=== PATIENT | female | born 1950 | race Caucasian/White ===

== ENCOUNTER 2020-02-23 00:23 | Outpatient (CLI) | payer OTHER, SELFPAY ==
[2020-02-23 17:33] LABS: SARS-CoV-2 RNA PCR Negative
== END 2020-02-23 00:24 | disposition home or self-care (01) ==
LOC: ANHCOVIDDT 00:23
PROVIDERS: PCP Emergency Medicine; Visit Provider Internal Medicine Gastroenterology
DX: Z01.818 Encounter for other preprocedural examination (principal); Z11.59 Encounter for screening for other viral diseases
CPT/HCPCS: 87635; C9803; U0003

== ENCOUNTER 2020-02-25 00:18 | Day surgery (SDC) | payer OTHER, SELFPAY ==
[2020-02-22 14:06] VITALS: BMI 34.4
[2020-02-25 06:25] VITALS: BP 152/77; PULSE 77; RESP 20; TEMP 36.4; O2SAT 98
[2020-02-25] MEDS: LACTATED RINGERS 1,000 ML 150 ML IV CONT (06:40)
[2020-02-25 06:47] LABS: Glucose Point of Care 137 (65-105)
--- NOTE | 2020-02-25 07:08 | WPDANESEPPF ---
Anes - Initial Pre Proc Eval Procedure: Operation Date: 02/25/20 07:30 Proposed Procedures p Esophagogastroduodenoscopy - Bong Schneider MD Date/Time: 02/25/20 07:08 Surgeon: Bong Schneider MD Pre Op Diagnosis: gastric ulcer Patient Data Age: 69 Gender: F Height: 5 ft 10 in Weight: 109 kg Last Vital Signs Temp 36.4 C L 02/25/20 06:25 Pulse 77 02/25/20 06:25 Resp 20 02/25/20 06:25 BP 152/77 H 02/25/20 06:25 Pulse Ox 98 02/25/20 06:25 Allergies Allergy/AdvReac Type Severity Reaction Status Date / Time oxycodone Allergy Intermediate Nausea and Verified 02/25/20 06:23 Vomiting codeine Allergy Unknown Nausea and Verified 02/25/20 06:23 Vomiting metformin Allergy Unknown Nausea Verified 02/25/20 06:23 Home Medications Medication Instructions Recorded Confirmed Type acetaminophen [Tylenol Extra 1,000 mg PO BID PRN 07/20/19 02/22/20 History Strength] aspirin [Aspir-81] 81 mg PO DAILY 07/20/19 02/22/20 History cholecalciferol (vitamin D3) 1,000 unit PO DAILY 07/20/19 02/22/20 History [Vitamin D3] cyanocobalamin (vitamin B-12) 1,000 mcg PO DAILY 07/20/19 02/22/20 History [Vitamin B-12] furosemide 40 mg PO DAILY 07/20/19 02/22/20 History magnesium oxide 400 mg PO DAILY 07/20/19 02/22/20 History docusate sodium 100 mg capsule See Rx Instructions .ROUTE .COMPLEX 08/23/19 02/22/20 History pantoprazole 40 mg tablet,delayed 40 mg PO BID tablet 08/23/19 02/22/20 History release pioglitazone 15 mg tablet 7.5 mg PO DAILY 08/23/19 02/22/20 History glimepiride 2 mg tablet 2 mg PO DAILY #90 tablet 09/30/19 02/22/20 Rx lisinopril 40 mg tablet 40 mg PO DAILY #90 tablet 12/31/19 02/22/20 Rx fluticasone propionate 50 See Rx Instructions .ROUTE 02/23/20 02/25/20 Rx mcg/actuation nasal .COMPLEX #15.8 ml spray,suspension Laboratory Tests 02/25/20 06:45 POC Capillary Glucose 137 mg/dl H mg/dl (65-105) Patient hx anesthesia problems: none Family hx anesthesia problems: none PMFSH Past Medical History Medical History Arthritis Asthma Laughlin's palsy Diabetes Morbid obesity Family History Family History Mother Diabetes mellitus, Onset Age: 75 Family history of cardiovascular disease, Onset Age: 75 Family history of renal failure, Onset Age: 75 Family history of arthritis Family history of kidney disease Family history of diabetes mellitus in first degree relative Family history of heart disease in male family member before age 55 Hypertension Father Family history of malignant neoplasm, Onset Age: 62 Family history of arthritis Family history of lung cancer Grandparent Diabetes mellitus Other Family history of malignant neoplasm of brain Social History Social History Smoking status: Former smoker Smoking end date: 09/15/72 Alcohol intake: never Anes - Eval Final PreProcedure Day of Procedure 02/25/20 07:08 Patient weight: obese Heart: regular rate and rhythm Lungs: clear to auscultation Airway: Mallampati scale class II Neurological: alert and oriented Last oral intake: >/= 8 hours ASA classification: III Emergent: no Anesthetic plan: proceed Anesthesia type and monitoring: general GIVS and standard monitoring Informed Consent: The patient's anesthetic plan and its attendant risks and benefits were discussed with the patient/family/POA. Questions were solicited and answers provided to the satisfaction of the patient/family/POA.
--- NOTE | 2020-02-25 07:37 | WPDGICN ---
Assessment and Plan Assessment and plan (1) Gastric ulcer: Code(s): K25.9 - Gastric ulcer, unspecified as acute or chronic, without hemorrhage or perforation Status: Acute Assessment and Plan: Gastric ulcers identified in May 2019. Patient has been maintained on Protonix 40 mg p.o. b.i.d. since that time. Currently denies any ongoing abdominal pain. Plan is for follow-up EGD. Continue PPI eyes. Avoid nonsteroidal anti-inflammatory agents. (2) Morbid obesity: Code(s): E66.01 - Morbid (severe) obesity due to excess calories Status: Acute Assessment and Plan: Patient has a history of gastric stapling. This is where previous ulcers were identified at the surgical site. (3) Diabetes mellitus: Code(s): E11.9 - Type 2 diabetes mellitus without complications Status: Acute (4) HLD (hyperlipidemia): Code(s): E78.5 - Hyperlipidemia, unspecified Status: Acute GI Consult Note Consult date/time: 02/25/20 07:37 HPI: Ninfa Turner is a 69 year old female Seen in evaluation at the request of Dr. Ventura. Patient has a history of gastric ulcers. Initially identified in May of 2019. She was placed on Protonix 40 mg p.o. b.i.d. in presents today for follow-up examination. She denies any abdominal pain. She denies any obvious bleeding. In May she had noticed difficulty swallowing this is no longer an issue. She has a distant history of stomach stapling in 1981. Family history is noncontributory. Patient denies using nonsteroidal anti-inflammatory agents. Past medical history is significant for diabetes and hypertension. Review of Systems Review of Systems: All systems reviewed & are unremarkable except as noted in HPI and below [facility] Past Medical History Medical History Arthritis Asthma Laughlin's palsy Diabetes Morbid obesity Family History Family History Mother Diabetes mellitus, Onset Age: 75 Family history of cardiovascular disease, Onset Age: 75 Family history of renal failure, Onset Age: 75 Family history of arthritis Family history of kidney disease Family history of diabetes mellitus in first degree relative Family history of heart disease in male family member before age 55 Hypertension Father Family history of malignant neoplasm, Onset Age: 62 Family history of arthritis Family history of lung cancer Grandparent Diabetes mellitus Other Family history of malignant neoplasm of brain Social History Social History Smoking status: Former smoker Smoking end date: 09/15/72 Alcohol intake: never Meds Home Medications and Allergies Home Medications Medication Instructions Recorded Confirmed Type acetaminophen [Tylenol Extra 1,000 mg PO BID PRN 07/20/19 02/22/20 History Strength] aspirin [Aspir-81] 81 mg PO DAILY 07/20/19 02/22/20 History cholecalciferol (vitamin D3) 1,000 unit PO DAILY 07/20/19 02/22/20 History [Vitamin D3] cyanocobalamin (vitamin B-12) 1,000 mcg PO DAILY 07/20/19 02/22/20 History [Vitamin B-12] furosemide 40 mg PO DAILY 07/20/19 02/22/20 History magnesium oxide 400 mg PO DAILY 07/20/19 02/22/20 History docusate sodium 100 mg capsule See Rx Instructions .ROUTE .COMPLEX 08/23/19 02/22/20 History pantoprazole 40 mg tablet,delayed 40 mg PO BID tablet 08/23/19 02/22/20 History release pioglitazone 15 mg tablet 7.5 mg PO DAILY 08/23/19 02/22/20 History glimepiride 2 mg tablet 2 mg PO DAILY #90 tablet 09/30/19 02/22/20 Rx lisinopril 40 mg tablet 40 mg PO DAILY #90 tablet 12/31/19 02/22/20 Rx fluticasone propionate 50 See Rx Instructions .ROUTE 02/23/20 02/25/20 Rx mcg/actuation nasal .COMPLEX #15.8 ml spray,suspension Allergies Allergy/AdvReac Type Severity Reaction Status Date / Time oxycodone Allergy Intermed
[2020-02-25] MEDS: BENZOCAINE (*SP) 60 ML SPRAY CAN (HURRICAINE) 1 SPRAY MUCOUS MEM (07:42)
[2020-02-25 07:53] VITALS: BP 129/57; PULSE 73; RESP 26; O2SAT 96
[2020-02-25 08:03] VITALS: BP 121/58; PULSE 75; RESP 24; O2SAT 94
[2020-02-25 08:13] VITALS: BP 121/55; PULSE 72; RESP 22; O2SAT 99
[2020-02-25 08:22] LABS: Hematocrit 35.6 % (37.0-47.0); Hemoglobin 11.7 g/dL (12.0-15.0); Mean Corpuscular HGB Conc 32.9 g/dl (32-36); Mean Corpuscular Hemoglobin 31.6 pg (26-34); Mean Corpuscular Volume 96.2 fl (80-100); Mean Platelet Volume 10.2 fl (7.4-10.4); Platelet Count Result 155 k/mm3 (150-375); Red Cell Distribution Width 13.8 % (11.5-14.5); White Blood Count 5.2 K/mm3 (4.5-10.0)
--- NOTE | 2020-02-25 08:35 | SUR.PHASEII ---
4334 CBC RESULTS GIVEN TO DR. CALDWELL. PRESTON RN
== END 2020-02-25 08:49 | disposition home or self-care (01) ==
PROVIDERS: PCP Emergency Medicine; Visit Provider Internal Medicine Gastroenterology
PROC: 0DJ08ZZ Inspection of Upper Intestinal Tract, Via Natural or Artificial Opening Endoscopic (ICD-10-PCS; CPT 43235; principal; 2020-02-25 07:30)
DX: K25.0 Acute gastric ulcer with hemorrhage (principal); K29.50 Unspecified chronic gastritis without bleeding; E11.9 Type 2 diabetes mellitus without complications; E78.5 Hyperlipidemia, unspecified; E66.01 Morbid (severe) obesity due to excess calories; Z68.34 Body mass index [BMI] 34.0-34.9, adult; Z87.891 Personal history of nicotine dependence; Z79.82 Long term (current) use of aspirin
CPT/HCPCS: 43239; 36415; 85027; 88305; 88342; J2704; J7120

== ENCOUNTER 2020-05-24 00:54 | Outpatient (CLI) | payer OTHER, SELFPAY ==
[2020-05-24 19:20] LABS: SARS-CoV-2 RNA PCR Negative
== END 2020-05-24 00:55 | disposition home or self-care (01) ==
LOC: ANHCOVIDDT 00:58
PROVIDERS: PCP Emergency Medicine; Visit Provider Internal Medicine Gastroenterology
DX: Z01.812 Encounter for preprocedural laboratory examination (principal); Z20.828 Contact with and (suspected) exposure to other viral communicable diseases
CPT/HCPCS: 87635; C9803; U0003

== ENCOUNTER 2020-05-26 00:54 | Day surgery (SDC) | payer OTHER, SELFPAY ==
[2020-05-17 10:21] VITALS: BMI 42.7
--- NOTE | 2020-05-25 15:19 | WPDANESEPP ---
Anes - Eval Pre Procedure Procedure: Operation Date: 05/26/20 07:30 Proposed Procedures p Esophagogastroduodenoscopy - Bong Schneider MD Date/Time: 05/25/20 15:19 Pre Op Diagnosis: gastric ulcer Patient Data Age: 70 Gender: F Height: 1.57 m Weight: 106 kg Allergies Allergy/AdvReac Type Severity Reaction Status Date / Time oxycodone Allergy Intermediate Nausea and Verified 02/25/20 06:23 Vomiting codeine Allergy Unknown Nausea and Verified 02/25/20 06:23 Vomiting metformin Allergy Unknown Nausea Verified 02/25/20 06:23 Home Medications Medication Instructions Recorded Confirmed Type acetaminophen [Tylenol Extra 1,000 mg PO BID PRN 07/20/19 05/17/20 History Strength] cholecalciferol (vitamin D3) 1,000 unit PO DAILY 07/20/19 05/17/20 History [Vitamin D3] cyanocobalamin (vitamin B-12) 1,000 mcg PO DAILY 07/20/19 05/17/20 History [Vitamin B-12] furosemide 40 mg PO DAILY 07/20/19 05/17/20 History pantoprazole 40 mg tablet,delayed 40 mg PO BID tablet 08/23/19 05/17/20 History release glimepiride 2 mg tablet 2 mg PO DAILY #90 tablet 09/30/19 05/17/20 Rx lisinopril 40 mg tablet 40 mg PO DAILY #90 tablet 12/31/19 05/17/20 Rx pioglitazone 15 mg tablet 7.5 mg PO DAILY #90 tablet 03/27/20 05/17/20 Rx docusate sodium 100 mg capsule See Rx Instructions .ROUTE .COMPLEX 04/04/20 05/17/20 History fluticasone propionate 50 See Rx Instructions .ROUTE 05/03/20 05/17/20 Rx mcg/actuation nasal .COMPLEX #16 ml spray,suspension sucralfate 1 g PO QID 05/17/20 05/17/20 History Patient hx anesthesia problems: none Family hx anesthesia problems: none PMFSH Social History Social History Smoking status: Former smoker Smoking end date: 09/15/72 Alcohol intake: never Spiritual care concerns: No Exam Day of Procedure 05/25/20 15:19
[2020-05-26 06:38] VITALS: BP 147/69; PULSE 72; RESP 16; TEMP 36.6; O2SAT 97; BMI 43.9
[2020-05-26] MEDS: LACTATED RINGERS 1,000 ML 150 ML IV CONT (06:58)
--- NOTE | 2020-05-26 07:04 | WPDANESEPP ---
Anes - Eval Pre Procedure Procedure: Operation Date: 05/26/20 07:30 Proposed Procedures p Esophagogastroduodenoscopy - Bong Schneider MD Date/Time: 05/26/20 07:04 Pre Op Diagnosis: gastric ulcer Patient Data Age: 70 Gender: F Height: 1.57 m Weight: 109.1 kg Last Vital Signs Temp 36.6 C 05/26/20 06:38 Pulse 72 05/26/20 06:38 Resp 16 05/26/20 06:38 BP 147/69 H 05/26/20 06:38 Pulse Ox 97 05/26/20 06:38 Allergies Allergy/AdvReac Type Severity Reaction Status Date / Time oxycodone Allergy Intermediate Nausea and Verified 05/26/20 06:32 Vomiting codeine Allergy Unknown Nausea and Verified 05/26/20 06:32 Vomiting metformin Allergy Unknown Nausea Verified 05/26/20 06:32 Home Medications Medication Instructions Recorded Confirmed Type acetaminophen [Tylenol Extra 1,000 mg PO BID PRN 07/20/19 05/17/20 History Strength] cholecalciferol (vitamin D3) 1,000 unit PO DAILY 07/20/19 05/17/20 History [Vitamin D3] cyanocobalamin (vitamin B-12) 1,000 mcg PO DAILY 07/20/19 05/17/20 History [Vitamin B-12] furosemide 40 mg PO DAILY 07/20/19 05/17/20 History pantoprazole 40 mg tablet,delayed 40 mg PO BID tablet 08/23/19 05/17/20 History release glimepiride 2 mg tablet 2 mg PO DAILY #90 tablet 09/30/19 05/17/20 Rx lisinopril 40 mg tablet 40 mg PO DAILY #90 tablet 12/31/19 05/17/20 Rx pioglitazone 15 mg tablet 7.5 mg PO DAILY #90 tablet 03/27/20 05/17/20 Rx docusate sodium 100 mg capsule See Rx Instructions .ROUTE .COMPLEX 04/04/20 05/17/20 History fluticasone propionate 50 See Rx Instructions .ROUTE 05/03/20 05/17/20 Rx mcg/actuation nasal .COMPLEX #16 ml spray,suspension sucralfate 1 g PO QID 05/17/20 05/17/20 History Patient hx anesthesia problems: none Family hx anesthesia problems: none PMFSH Social History Social History Smoking status: Former smoker Smoking end date: 09/15/72 Alcohol intake: never Living arrangements: with family Spiritual care concerns: No Exam Day of Procedure 05/26/20 07:04
--- NOTE | 2020-05-26 07:10 | WPDANESEPPF ---
Anes - Initial Pre Proc Eval Procedure: Operation Date: 05/26/20 07:30 Proposed Procedures p Esophagogastroduodenoscopy - Bong Schneider MD Date/Time: 05/26/20 07:10 Surgeon: Bong Schneider MD Pre Op Diagnosis: gastric ulcer Patient Data Age: 70 Gender: F Height: 1.57 m Weight: 109.1 kg Last Vital Signs Temp 36.6 C 05/26/20 06:38 Pulse 72 05/26/20 06:38 Resp 16 05/26/20 06:38 BP 147/69 H 05/26/20 06:38 Pulse Ox 97 05/26/20 06:38 Allergies Allergy/AdvReac Type Severity Reaction Status Date / Time oxycodone Allergy Intermediate Nausea and Verified 05/26/20 06:32 Vomiting codeine Allergy Unknown Nausea and Verified 05/26/20 06:32 Vomiting metformin Allergy Unknown Nausea Verified 05/26/20 06:32 Home Medications Medication Instructions Recorded Confirmed Type acetaminophen [Tylenol Extra 1,000 mg PO BID PRN 07/20/19 05/17/20 History Strength] cholecalciferol (vitamin D3) 1,000 unit PO DAILY 07/20/19 05/17/20 History [Vitamin D3] cyanocobalamin (vitamin B-12) 1,000 mcg PO DAILY 07/20/19 05/17/20 History [Vitamin B-12] furosemide 40 mg PO DAILY 07/20/19 05/17/20 History pantoprazole 40 mg tablet,delayed 40 mg PO BID tablet 08/23/19 05/17/20 History release glimepiride 2 mg tablet 2 mg PO DAILY #90 tablet 09/30/19 05/17/20 Rx lisinopril 40 mg tablet 40 mg PO DAILY #90 tablet 12/31/19 05/17/20 Rx pioglitazone 15 mg tablet 7.5 mg PO DAILY #90 tablet 03/27/20 05/17/20 Rx docusate sodium 100 mg capsule See Rx Instructions .ROUTE .COMPLEX 04/04/20 05/17/20 History fluticasone propionate 50 See Rx Instructions .ROUTE 05/03/20 05/17/20 Rx mcg/actuation nasal .COMPLEX #16 ml spray,suspension sucralfate 1 g PO QID 05/17/20 05/17/20 History Laboratory Tests 05/26/20 07:07 POC Capillary Glucose Pending Patient hx anesthesia problems: none Family hx anesthesia problems: none PMFSH Past Medical History Medical History Arthritis Asthma Laughlin's palsy Diabetes Morbid obesity Family History Family History Mother Diabetes mellitus, Onset Age: 75 Family history of cardiovascular disease, Onset Age: 75 Family history of renal failure, Onset Age: 75 Family history of arthritis Family history of kidney disease Family history of diabetes mellitus in first degree relative Family history of heart disease in male family member before age 55 Hypertension Father Family history of malignant neoplasm, Onset Age: 62 Family history of arthritis Family history of lung cancer Grandparent Diabetes mellitus Other Family history of malignant neoplasm of brain Social History Social History Smoking status: Former smoker Smoking end date: 09/15/72 Alcohol intake: never Living arrangements: with family Spiritual care concerns: No Anes - Eval Final PreProcedure Day of Procedure 05/26/20 07:10 Patient weight: morbidly obese Heart: regular rate and rhythm Lungs: clear to auscultation and normal air movement Airway: Mallampati scale class II Neurological: alert and oriented Last oral intake: >/= 8 hours ASA classification: III Emergent: no Anesthetic plan: proceed Anesthesia type and monitoring: general GIVS Informed Consent: The patient's anesthetic plan and its attendant risks and benefits were discussed with the patient/family/POA. Questions were solicited and answers provided to the satisfaction of the patient/family/POA.
[2020-05-26 07:11] LABS: Glucose Point of Care 133 (65-105)
[2020-05-26] MEDS: BENZOCAINE (*SP) 60 ML SPRAY CAN (HURRICAINE) 1 SPRAY MUCOUS MEM (07:41)
--- NOTE | 2020-05-26 07:46 | WPDGICN ---
Assessment and Plan Assessment and plan (1) Gastric ulcer: Code(s): K25.9 - Gastric ulcer, unspecified as acute or chronic, without hemorrhage or perforation Status: Acute Assessment and Plan: Because of prior gastric ulcer follow-up EGD is advised at this time. Currently patient on pantoprazole 40 mg p.o. b.i.d. with Carafate daily. Further recommendations will be given after endoscopy. (2) Morbid obesity: Code(s): E66.01 - Morbid (severe) obesity due to excess calories Status: Acute (3) History of gastric bypass: Code(s): Z98.84 - Bariatric surgery status Status: Acute (4) Diabetes mellitus: Qualifiers: Diabetes mellitus type: type 2 Diabetes mellitus mcfp insulin use: without mcfp use Diabetes mellitus complication status: without complication Qualified Code(s): E11.9 - Type 2 diabetes mellitus without complications Code(s): E11.9 - Type 2 diabetes mellitus without complications Status: Acute GI Consult Note Consult date/time: 05/26/20 07:46 HPI: Ninfa Turner is a 70 year old female Presents for follow-up EGD. Patient has persistent abdominal pain predominantly epigastric and right upper quadrant. She is known to have a gastric ulcer since May of 2019. EGD 2 months ago revealed persistent ulceration. Since that time she has been maintained on pantoprazole. She avoids nonsteroidal anti-inflammatory agents. Carafate was added to her regime. She feels somewhat better but continues to have some vague right upper quadrant abdominal pain. Past medical history is significant for a gastric bypass. She has been treated for diabetes mellitus. Review of Systems Review of Systems: All systems reviewed & are unremarkable except as noted in HPI and below PMFSH Past Medical History Medical History Arthritis Asthma Laughlin's palsy Diabetes Morbid obesity Family History Family History Mother Diabetes mellitus, Onset Age: 75 Family history of cardiovascular disease, Onset Age: 75 Family history of renal failure, Onset Age: 75 Family history of arthritis Family history of kidney disease Family history of diabetes mellitus in first degree relative Family history of heart disease in male family member before age 55 Hypertension Father Family history of malignant neoplasm, Onset Age: 62 Family history of arthritis Family history of lung cancer Grandparent Diabetes mellitus Other Family history of malignant neoplasm of brain Social History Social History Smoking status: Former smoker Smoking end date: 09/15/72 Alcohol intake: never Living arrangements: with family Spiritual care concerns: No Meds Home Medications and Allergies Home Medications Medication Instructions Recorded Confirmed Type acetaminophen [Tylenol Extra 1,000 mg PO BID PRN 07/20/19 05/17/20 History Strength] cholecalciferol (vitamin D3) 1,000 unit PO DAILY 07/20/19 05/17/20 History [Vitamin D3] cyanocobalamin (vitamin B-12) 1,000 mcg PO DAILY 07/20/19 05/17/20 History [Vitamin B-12] furosemide 40 mg PO DAILY 07/20/19 05/17/20 History pantoprazole 40 mg tablet,delayed 40 mg PO BID tablet 08/23/19 05/17/20 History release glimepiride 2 mg tablet 2 mg PO DAILY #90 tablet 09/30/19 05/17/20 Rx lisinopril 40 mg tablet 40 mg PO DAILY #90 tablet 12/31/19 05/17/20 Rx pioglitazone 15 mg tablet 7.5 mg PO DAILY #90 tablet 03/27/20 05/17/20 Rx docusate sodium 100 mg capsule See Rx Instructions .ROUTE .COMPLEX 04/04/20 05/17/20 History fluticasone propionate 50 See Rx Instructions .ROUTE 05/03/20 05/17/20 Rx mcg/actuation nasal .COMPLEX #16 ml spray,suspension sucralfate 1 g PO QID 05/17/20 05/17/20 History Allergies Allergy/AdvReac Type Severity Reaction Stat
[2020-05-26 07:48] VITALS: BP 128/57; PULSE 67; RESP 19; O2SAT 95
[2020-05-26 07:58] VITALS: BP 127/53; PULSE 62; RESP 20; O2SAT 93
[2020-05-26 08:08] VITALS: BP 131/55; PULSE 60; RESP 21; O2SAT 97
== END 2020-05-26 08:32 | disposition home or self-care (01) ==
PROVIDERS: PCP Emergency Medicine; Visit Provider Internal Medicine Gastroenterology
PROC: 0DJ08ZZ Inspection of Upper Intestinal Tract, Via Natural or Artificial Opening Endoscopic (ICD-10-PCS; CPT 43235; principal; 2020-05-26 07:30)
DX: R10.13 Epigastric pain (principal); K31.84 Gastroparesis; Z98.84 Bariatric surgery status; Z87.11 Personal history of peptic ulcer disease; E11.9 Type 2 diabetes mellitus without complications; E66.01 Morbid (severe) obesity due to excess calories; Z68.41 Body mass index [BMI] 40.0-44.9, adult; Z87.891 Personal history of nicotine dependence
CPT/HCPCS: 43235; J2704; J7120

== ENCOUNTER 2020-08-22 12:06 | Outpatient (CLI) | payer OTHER, SELFPAY ==
--- NOTE | ~2020-08-22 | XR_ITS ---
EXAMINATION: XR shoulder LT min 2V DATE: 08/22/2020 12:37 INDICATION: Left shoulder pain. TECHNIQUE: 4 views of left shoulder were obtained. COMPARISON: None. FINDINGS: Bone alignment is normal. No fracture. There is mild osteoarthritis of glenohumeral joint a nd moderate osteoarthritis of acromioclavicular joint. IMPRESSION: 1. Polyarticular osteoarthritis. Reviewed, dictated and finalized at location B. HOUSE ORDER PULLER
== END 2020-08-22 12:07 | disposition home or self-care (01) ==
PROVIDERS: PCP Emergency Medicine; Visit Provider Emergency Medicine
DX: M19.012 Primary osteoarthritis, left shoulder (principal)
CPT/HCPCS: 73030

== ENCOUNTER 2020-11-02 15:34 | Outpatient (CLI) | payer OTHER, SELFPAY ==
--- NOTE | ~2020-11-02 | MM_ITS ---
EXAMINATION: MM screening radhika BI w brittni HISTORY: Screening TECHNIQUE: Craniocaudal and mediolateral oblique 3-D tomosynthesis images were obtained and synthetic 2-D images were generated. CAD analysis was submitted and interpreted. COMPARISON: Comparison to multiple prior studies sequentially, with oldest reviewed study dated 04/12. BREAST PARENCHYMAL COMPOSITION: There are scattered areas of fibroglandular density. FINDINGS: There is no evidence of suspicious mass, calcification, or architectural distortion to sugg est malignancy in either breast. There has been no suspicious interval change. IMPRESSION: 1. No mammographic evidence of malignancy. 2. Recommend routine screening mammography in one year. BI-RADS Category 1: Negative Reviewed, dictated and finalized at location A. ROASTER
== END 2020-11-02 15:35 | disposition home or self-care (01) ==
PROVIDERS: PCP Emergency Medicine; Visit Provider Emergency Medicine
DX: Z12.31 Encounter for screening mammogram for malignant neoplasm of breast (principal)
CPT/HCPCS: 77063; 77067

== ENCOUNTER 2021-02-05 21:10 | Emergency (ER) | payer OTHER, SELFPAY ==
--- NOTE | ~2021-02-05 | XR_ITS ---
XR chest 1V portable 02/05/2021 22:54 Indication: Shortness of breath. Covid positive. Procedure: AP portable chest Comparison: 01/07/2019 Findings: Patchy bilateral infiltrates, compatible with pneumonia. No significant pleural effusion. H eart size normal. No pneumothorax. No acute osseous abnormality. Impression: 1: Patchy bilateral infiltrates, compatible with pneumonia. Reviewed, dictated and finalized at location A. Impression: 1: Patchy bilateral infiltrates, compatible with pneumonia.
[2021-02-05 21:14] VITALS: BP 145/60; PULSE 84; RESP 14; TEMP 36.7; O2SAT 93
--- NOTE | 2021-02-05 21:17 | ECG_ITS ---
Measurements Intervals [place] Rate: 86 P: 90 AL: 195 QRS: 36 QRSD: 143 T: 4 QT: 350 QTc: 420 Interpretive Statements SINUS RHYTHM ATRIAL AND VENTRICULAR PREMATURE COMPLEXES ABNORMAL ECG RIGHT BUNDLE BRANCH BLOCK Electronically Signed On 02-06-2021 6:05:03 CDT by Abdullahi Fiore D.O.
[2021-02-05 21:35] LABS: Basophils Percent Auto 0.2 % (0.2-1.2); Hematocrit 39.1 % (37.0-47.0); Hemoglobin 12.9 g/dL (12.0-15.0); Immature Granulocyte Absolute 0.02 K/mm3 (0.00-0.031); Immature Granulocyte Percent A 0.5 % (0-0.5); Immature Platelet Fraction Pct 3.6 % (0.9-11.2); Lymphocytes Absolute Auto 0.98 K/mm3 (0.9-3.2); Mean Corpuscular Hemoglobin 30.9 pg (26-34); Mean Corpuscular Volume 93.5 fl (80-100); Mean Platelet Volume 10.3 fl (7.4-10.4); Monocytes Absolute Auto 0.6 K/mm3 (0.1-0.6); Monocytes Percent Auto 14.4 % (2.6-8.5); Neutrophils Absolute Auto 2.5 K/mm3 (1.3-6.7); Neutrophils Percent Auto 60.9 % (45.5-73.1); Platelet Count Result 120 k/mm3 (150-375); Red Blood Count 4.18 M/mm3 (4.2-5.4); Red Cell Distribution Width 13.3 % (11.5-14.5); White Blood Count 4.1 K/mm3 (4.5-10.0)
[2021-02-05 21:46] LABS: Anion Gap 1 mmol/L (8-16); Blood Urea Nitrogen 11 mg/dL (7-17); Calcium 8.4 mg/dL (8.4-10.2); Carbon Dioxide 32 mmol/L (22-30); Chloride 101 mmol/L (98-107); Estimated CRCL calculation 69 ml/min; Estimated Glomerular Filt Rate > 60; Glucose 138 mg/dL (65-105); Potassium 3.7 mmol/L (3.4-5.0); Sodium 134 mmol/L (137-145)
[2021-02-05 22:59] VITALS: BP 159/73; PULSE 78; RESP 16; O2SAT 93
[2021-02-05 23:01] VITALS: PULSE 80
--- NOTE | 2021-02-05 23:42 | ED.SOB ---
HPI - SOB/Dyspnea General Chief Complaint: Shortness of Breath/Dyspnea Stated Complaint: COVID Time Seen by Provider: 02/05/21 23:41 History of Present Illness HPI Narrative: 70 yo female w/ h/o htn, DM presents to the ED for COVID-19. She reports that she has had symptoms for about the past week. She tested positive on 02/02. She has been experiencing body aches, fatigue, cough and MARCUM. She was feeling stable until this evening when she became very short of breath. She checked her O2 saturation at home and it was 90%. She is feeling better at this time resting in bed. Related Data Home Medications Medication Instructions Recorded Confirmed acetaminophen [Tylenol Extra 1,000 mg PO BID PRN 07/20/19 08/30/20 Strength] cholecalciferol (vitamin D3) 1,000 unit PO DAILY 07/20/19 08/30/20 [Vitamin D3] cyanocobalamin (vitamin B-12) 1,000 mcg PO DAILY 07/20/19 08/30/20 [Vitamin B-12] docusate sodium 100 mg capsule See Rx Instructions .ROUTE .COMPLEX 04/04/20 08/30/20 Allergies Allergy/AdvReac Type Severity Reaction Status Date / Time oxycodone Allergy Intermediate Nausea and Verified 05/26/20 06:32 Vomiting codeine Allergy Unknown Nausea and Verified 05/26/20 06:32 Vomiting metformin Allergy Unknown Nausea Verified 05/26/20 06:32 Review of Systems Review of Systems: All systems reviewed & are unremarkable except as noted in HPI and below Constitutional: Constitutional: Reports chills, Reports fatigue and Reports fever(s) Cardiovascular: Cardiovascular: Denies chest pain Respiratory: Respiratory: Reports chest congestion, Reports cough and Reports dyspnea Gastrointestinal: Gastrointestinal: Denies diarrhea, Denies nausea and Denies vomiting Genitourinary: Genitourinary: Denies hematuria and Denies dysuria Musculoskeletal: Musculoskeletal: Reports back pain and Reports myalgias Neurologic: Denies confusion and Reports weakness PMFSH Past Medical History Medical History (Updated 02/06/21 @ 01:02 by Camden Potter MD) Arthritis Asthma Laughlin's palsy Diabetes Morbid obesity Family History Family History Mother Diabetes mellitus, Onset Age: 75 Family history of cardiovascular disease, Onset Age: 75 Family history of renal failure, Onset Age: 75 Family history of arthritis Family history of kidney disease Family history of diabetes mellitus in first degree relative Family history of heart disease in male family member before age 55 Hypertension Father Family history of malignant neoplasm, Onset Age: 62 Family history of arthritis Family history of lung cancer Grandparent Diabetes mellitus Other Family history of malignant neoplasm of brain Social History Social History Smoking status: Former smoker Smoking end date: 09/15/72 Alcohol intake: never Spiritual care concerns: No Exam Const: General: no acute distress and alert Nutritional Appearance: obese Orientation/consciousness: patient oriented x3 HENMT: Head: normal to inspection Neck: Neck: normal visual inspection Resp: Effort & Inspection: normal respiratory effort Auscultation: crackles Cardio: Rate: regular rate Rhythm: regular rhythm GI: Inspection: non-distended GI Palp: Yes Soft to palpation and No Tenderness to palpation present (GI) Skin: General skin exam: normal color Neuro: General: patient oriented x3, moves all extremities and CN's II-XI intact bilaterally Speech: normal speech Extrem: General: normal to inspection and no edema Psych: Mental Status: mental status grossly normal Affect: normal affect Attitude: cooperative Course Vital Signs Vital signs: Vital Signs Temperature 36.7 C 02/05/21 21:14 Pulse Rate 84 02/05/21 21:14 Respiratory Rate 14 02/05/21 21:14 Blood Pressure 145/60 H 02/05/21 21:14 Pulse Oximetry 93 02/05/21 21:14 T
[2021-02-06] MEDS: DEXAMETHASONE 2 MG TABLET 6 MG PO (00:09)
[2021-02-06 00:10] VITALS: BP 157/98; PULSE 89; RESP 16; O2SAT 94
[2021-02-06 00:23] VITALS: PULSE 81; RESP 20
[2021-02-06 00:57] VITALS: BP 144/63; PULSE 80; RESP 16; O2SAT 93
== END 2021-02-06 01:05 | disposition home or self-care (01) ==
PROVIDERS: Emergency Medicine; Emergency Provider Emergency Medicine; PCP Emergency Medicine
DX: U07.1 COVID-19 (principal); J12.82 Pneumonia due to coronavirus disease 2019; E11.9 Type 2 diabetes mellitus without complications; I10 Essential (primary) hypertension; J45.909 Unspecified asthma, uncomplicated; Z79.84 Long term (current) use of oral hypoglycemic drugs; E66.01 Morbid (severe) obesity due to excess calories; Z68.35 Body mass index [BMI] 35.0-35.9, adult; Z87.891 Personal history of nicotine dependence; I49.1 Atrial premature depolarization; I49.3 Ventricular premature depolarization; I45.10 Unspecified right bundle-branch block
CPT/HCPCS: 36415; 71045; 80048; 85025; 85055; 93005; 94640; 99283; J8540

== ENCOUNTER 2022-01-02 12:33 | Outpatient (CLI) | payer OTHER, SELFPAY ==
--- NOTE | ~2022-01-02 | MM_ITS ---
EXAMINATION: MM screening radhika BI w brittni HISTORY: Screening mammogram TECHNIQUE: Craniocaudal and mediolateral oblique 3-D tomosynthesis images were obtained and synthetic 2-D images were generated. CAD analysis was submitted and interpreted. COMPARISON: November 02, 2020, June 08, 2019, June 03, 2018 bilateral screening mammogram e xaminations BREAST PARENCHYMAL COMPOSITION: There are scattered areas of fibroglandular density. FINDINGS: There is no evidence of suspicious mass, calcification, or architectural distortion to sugg est malignancy in either breast. There has been no suspicious interval change. IMPRESSION: 1. No mammographic evidence of malignancy. 2. Recommend routine screening mammography in one year. BI-RADS Category 1: Negative Reviewed, dictated and finalized at location A.
== END 2022-01-02 12:34 | disposition home or self-care (01) ==
LOC: ANHIMG 12:36
PROVIDERS: PCP Emergency Medicine; Visit Provider Emergency Medicine
DX: Z12.31 Encounter for screening mammogram for malignant neoplasm of breast (principal)
CPT/HCPCS: 77063; 77067

== ENCOUNTER 2022-11-04 07:28 | Outpatient (CLI) | payer OTHER, SELFPAY ==
--- NOTE | 2022-11-04 07:54 | ECHO_ITS ---
Patient Info Name: Ninfa Turner Age: 72 years : 1950 Gender: Female Ht: 62 in Wt: 242 lbs BSA: 2.26 m2 HR: 70 bpm BP: 137 / 77 mmHg Technical Quality: Fair Exam Date: 11/04/2022 8:07 AM Exam Location: [facility] Patient Status: Outpatient Admit Date: 11/04/2022 Staff Ordering Physician: Abdullahi Fiore DO Knifer Up: Aubrie Davis RDCS Attending Provider: Abdullahi Fiore DO Referring Physician: Adebayo BHAT; Exam Type: CA echo doppler color flow Study Info Indications R06.09 - Other forms of dyspnea Complete two-dimensional, color flow and Doppler transthoracic echocardiogram is performed. Summary 1. Complete two-dimensional, color flow and Doppler transthoracic echocardiogram is performed. 2. Left ventricular chamber dimension is normal. 3. Left ventricular systolic function is normal, estimated at 55-60%. 4. There is mild concentric increased left ventricular wall thickness. 5. The left ventricular diastolic function is abnormal. 6. E/e' 12 is mildly elevated. 7. Global longitudinal strain is abnormal at -15.5%. 8. Left atrial chamber dimension is mildly enlarged. 9. There is moderate aortic valve sclerosis. 10. There is mild aortic valve stenosis with a peak velocity of 274 cm/s, mean gradient of 18 mmHg, and aortic valve area of 1.8 cm2. 11. There is mild aortic valve regurgitation. 12. No pulmonary hypertension, estimated pulmonary arterial systolic pressure is 17 mmHg. Left Ventricle E/e' 12 is mildly elevated. Global longitudinal strain is abnormal at -15.5%. Left ventricular chamber dimension is normal. Left ventricular systolic function is normal, estimated at 55-60%. There is mild concentric increased left ventricular wall thickness. The left ventricular diastolic function is abnormal. Right Ventricle Right ventricular systolic function is normal and with normal TAPSE 1.7 cm. Right ventricular chamber dimension is normal. Left Atria Left atrial chamber dimension is mildly enlarged. Right Atria Right atrial chamber dimension is normal. Aortic Valve The aortic valve is trileaflet. There is moderate aortic valve sclerosis. There is mild aortic valve stenosis with a peak velocity of 274 cm/s, mean gradient of 18 mmHg, and aortic valve area of 1.8 cm2. There is mild aortic valve regurgitation. Pulmonic Valve There is no pulmonic regurgitation. Mitral Valve There is no mitral valve stenosis. There is no mitral valve regurgitation. Tricuspid Valve There is no tricuspid valve regurgitation. No pulmonary hypertension, estimated pulmonary arterial systolic pressure is 17 mmHg. Pericardium/Pleural There is no pericardial effusion. Inferior Vena Cava Normal inferior vena cava with >50% collapse upon inspiration consistent with normal right atrial pressure, 5 mmHg. Aorta The aortic root size at the sinus of Valsalva is normal. Left Ventricular Outflow Tract Name Value Normal LVOT 2D LVOT Diameter 2.0 cm LVOT Doppler LVOT Peak Gradient 8 mmHg LVOT Mean Gradient 5 mmHg LVOT VTI
== END 2022-11-04 07:29 | disposition home or self-care (01) ==
PROVIDERS: PCP Emergency Medicine; Visit Provider Internal Medicine Cardiovascular Disease
DX: R06.09 Other forms of dyspnea (principal); I35.1 Nonrheumatic aortic (valve) insufficiency
CPT/HCPCS: 93306

== ENCOUNTER 2022-11-12 09:33 | Outpatient (CLI) | payer OTHER, SELFPAY ==
--- NOTE | ~2022-11-12 | NM_ITS ---
EXAMINATION: NM stress w perf spect multi DATE: 11/12/2022 11:34 INDICATION: Chest pain, unspecified. TECHNIQUE: Rest images were obtained following intravenous administration of 10.8 mCi Tc99m tetrofosm in (Myoview). The patient performed an exercise activity. At peak exercise, 33.6 mCi Tc99m tetrofosmi n (Myoview) was administered intravenously, and stress images were obtained. Data was reconstructed i nto short axis and horizontal and vertical long axis SPECT images. Gated SPECT images were also obtai marva. COMPARISON: CT abdomen and pelvis 03/28/2019 FINDINGS: There is a large, moderate severity, reversible perfusion defect involving left ventricular apex, apical segments, anterior wall, and mid anteroseptal segment, consistent with ischemia. There is no segmental wall motion abnormality. Left ventricular ejection fraction measures 61%. IMPRESSION: 1. Large area of moderate ischemia involving left ventricular apex, the apical segments, anterior wal l, and the mid anteroseptal segment. 2. Normal left ventricular ejection fraction measuring 61%. Reviewed, dictated and finalized at location A. N TECH IMPRESSION: 1. Large area of moderate ischemia involving left ventricular apex, the apical segments, anterior wall, and the mid anteroseptal segment. 2. Normal left ventricular ejection fraction measuring 61%.
--- NOTE | 2022-11-12 09:42 | EST_ITS ---
Patient Info Name: Ninfa Turner Age: 72 years : 1950 Gender: Female Ht: 62 in Wt: 240 lbs BSA: 2.25 m2 HR: 63 bpm BP: 160 / 63 mmHg Heart Rhythm: Sinus Rhythm Exam Date: 11/12/2022 10:40 AM Exam Location: [facility] Stress Patient Status: Outpatient Admit Date: 11/12/2022 Staff Ordering Physician: Abdullahi Fiore DO Attending Provider: Abdullahi Fiore DO Exercise Technologist: Meggan Guzman CT Exercise Physician: Abdullahi Fiore DO Exam Type: CA stress test treadmill w NM Study Info Indications R07.9 - Chest pain, unspecified A nuclear stress test was performed. Summary 1. 1. Negative Chao exercise stress test for ischemic ST changes by ECG criteria. 2. 2. Poor functional capacity, achieving 4.7 METs of workload. 3. 3. Baseline hypertension with hypertensive response to exercise. 4. 4. Appropriate HR response to exercise. 5. 5. Appropriate HR recovery at 1 minute post exercise. 6. 6. Nuclear scan to follow and will be reported separately. Please correlate with it. 7. 7. Patient informed of the above results. Protocol: Chao Stress ECG Details Stage: REST Duration (min): 2 min : 28 sec Speed (mph): 0.0 Grade (%): 0 HR (bpm): 64 SBP (mmHg): 160 DBP (mmHg): 63 METS: --- Stage: REST Duration (min): 7 min : 46 sec Speed (mph): 0.0 Grade (%): 0 HR (bpm): 94 SBP (mmHg): 160 DBP (mmHg): 63 METS: --- Stage: STAGE 1 Duration (min): 1 min : 0 sec Speed (mph): 1.7 Grade (%): 10 HR (bpm): 123 SBP (mmHg): 160 DBP (mmHg): 63 METS: --- Stage: STAGE 1 Duration (min): 2 min : 0 sec Speed (mph): 1.7 Grade (%): 10 HR (bpm): 150 SBP (mmHg): 160 DBP (mmHg): 63 METS: --- Stage: STAGE 1 Duration (min): 2 min : 30 sec Speed (mph): 1.7 Grade (%): 10 HR (bpm): 148 SBP (mmHg): 160 DBP (mmHg): 63 METS: --- Stage: RECOVERY Duration (min): 0 min : 29 sec Speed (mph): 0.0 Grade (%): 0 HR (bpm): 140 SBP (mmHg): 180 DBP (mmHg): 66 METS: --- Stage: RECOVERY Duration (min): 1 min : 29 sec Speed (mph): 0.0 Grade (%): 0 HR (bpm): 122 SBP (mmHg): 180 DBP (mmHg): 66 METS: --- Stage: RECOVERY Duration (min): 2 min : 29 sec Speed (mph): 0.0 Grade (%): 0 HR (bpm): 99 SBP (mmHg): 180 DBP (mmHg): 66 METS: --- Stage: RECOVERY Duration (min): 3 min : 15 sec Speed (mph): 0.0 Grade (%): 0 HR (bpm): 91 SBP (mmHg): 218 DBP (mmHg): 88 METS: --- Rest HR: 94 bpm Peak HR: 150 bpm Rest Sys BP: 160 mmHg Peak Sys BP: 218 mmHg Max Pred HR: 148 bpm % Max Pred HR: 101 % Target HR: 126 bpm Max RPP: 32,700 bpm*mmHg Pond Score: -14 BP Response: Patient exhibited a hypertensive response with stress Termination Reason: Reached target heart rate or workload Cardiac Symptoms: Shortness of breath, Throat pain Max ST Seg Deviation: -3 mm Total Time: 2 min : 30 sec Rest Dowd BP: 63 mmHg Peak Dowd BP: 88 mmHg Angina Score:
== END 2022-11-12 09:34 | disposition home or self-care (01) ==
PROVIDERS: PCP Emergency Medicine; Visit Provider Internal Medicine Cardiovascular Disease
DX: R07.9 Chest pain, unspecified (principal); R94.39 Abnormal result of other cardiovascular function study
CPT/HCPCS: 78452; 93017; A9502

== ENCOUNTER 2022-11-21 01:03 | Day surgery (SDC) | payer OTHER, SELFPAY ==
[2022-11-20 13:18] VITALS: BMI 43.9
[2022-11-21] VITALS (9 sets, daily range): BP systolic 88–158; BP diastolic 51–83; PULSE 62–69; RESP 12–20; TEMP 36.1; O2SAT 97–100; BMI 44.9
[2022-11-21 07:28] LABS: Basophils Percent Auto 0.6 % (0.2-1.2); Eosinophils Absolute Auto 0.2 K/mm3 (0-0.3); Eosinophils Percent Auto 3.1 % (0-4.4); Hematocrit 38.2 % (37.0-47.0); Hemoglobin 12.7 g/dL (12.0-15.0); Immature Granulocyte Absolute 0.02 K/mm3 (0.00-0.031); Immature Granulocyte Percent A 0.3 % (0-0.5); Lymphocytes Absolute Auto 1.82 K/mm3 (0.9-3.2); Lymphocytes Percent Auto 27.2 % (18.3-44.2); Mean Corpuscular HGB Conc 33.2 g/dl (32-36); Mean Corpuscular Hemoglobin 31.1 pg (26-34); Mean Corpuscular Volume 93.6 fl (80-100); Mean Platelet Volume 10.2 fl (7.4-10.4); Monocytes Absolute Auto 0.9 K/mm3 (0.1-0.6); Neutrophils Absolute Auto 3.7 K/mm3 (1.3-6.7); Neutrophils Percent Auto 54.8 % (45.5-73.1); Platelet Count Result 177 k/mm3 (150-375); Red Blood Count 4.08 M/mm3 (4.2-5.4); Red Cell Distribution Width 14.1 % (11.5-14.5); White Blood Count 6.7 K/mm3 (4.5-10.0)
[2022-11-21 08:25] LABS: Anion Gap 5 mmol/L (8-16); Blood Urea Nitrogen 20 mg/dL (7-17); Calcium 9.1 mg/dL (8.4-10.2); Carbon Dioxide 32 mmol/L (22-30); Chloride 104 mmol/L (98-107); Estimated CRCL calculation 74 ml/min; Estimated Glomerular Filt Rate > 60; Glucose 106 mg/dL (65-110); Potassium 3.8 mmol/L (3.4-5.0); Sodium 141 mmol/L (137-145)
[2022-11-21] MEDS: CLOPIDOGREL BISULFATE 300 MG TABLET 600 MG (08:26)
--- NOTE | 2022-11-21 08:54 | WPDHPUPDATE1 ---
History and Physical Update Update Date/Time: 11/21/22 08:54 History and Physical has been reviewed, including an updated exam of the patient. There are NO changes in the patient's condition. Risks, benefits, and alternatives have been discussed and questions answered. Patient agrees to proceed with procedure.
--- NOTE | 2022-11-21 08:55 | WPDMODSED ---
Moderate Sedation Note-Pt Data Patient Data Diagnosis: Abnormal stress test Present Complaint: Abnormal stress test Procedure to be performed/Plan: Coronary angiography, LHC, +/- PCI Allergies Allergy/AdvReac Type Severity Reaction Status Date / Time oxycodone Allergy Intermediate Nausea and Verified 11/21/22 07:11 Vomiting codeine Allergy Unknown Nausea and Verified 11/21/22 07:11 Vomiting metformin Allergy Unknown Nausea Verified 11/21/22 07:11 Home Medications Medication Instructions Recorded Confirmed Type acetaminophen 500 mg tablet 1,000 mg PO BID PRN Pain 07/20/19 11/20/22 History (Tylenol Extra Strength) cholecalciferol (vitamin D3) 25 2,000 unit PO DAILY 07/20/19 11/20/22 History mcg (1,000 unit) capsule (Vitamin D3) cyanocobalamin (vitamin B-12) 1,000 mcg PO DAILY 07/20/19 11/20/22 History 1,000 mcg tablet (Vitamin B-12) fluticasone propionate 50 See Rx Instructions .Route 05/03/20 11/20/22 Rx mcg/actuation nasal .COMPLEX #16 mL spray,suspension levalbuterol tartrate 45 2 inh inhalation Q6H PRN shortness 02/06/21 11/20/22 Rx mcg/actuation aerosol inhaler of breath or wheezing #15 grams (Xopenex HFA) alprazolam 0.5 mg tablet (Xanax) 0.5 mg PO BID PRN anxiety #30 tabs 09/04/21 11/20/22 Rx pioglitazone 15 mg tablet (Actos) 15 mg PO DAILY #90 tabs 01/30/22 11/20/22 Rx pantoprazole 40 mg tablet,delayed See Rx Instructions .Route 03/13/22 11/20/22 Rx release .COMPLEX #180 tabs furosemide 40 mg tablet 40 mg PO DAILY #90 tabs 09/10/22 11/20/22 Rx glimepiride 2 mg tablet See Rx Instructions .Route 09/23/22 11/20/22 Rx .COMPLEX #90 tabs lisinopril 40 mg tablet See Rx Instructions .Route 09/23/22 11/20/22 Rx .COMPLEX #90 tabs aspirin 81 mg chewable tablet 81 mg PO DAILY 10/15/22 11/20/22 History pravastatin 10 mg tablet 10 mg PO DAILY #90 tabs 11/13/22 11/20/22 Rx docusate sodium 100 mg capsule 100 mg PO BID 11/20/22 11/20/22 History magnesium 500 mg tablet 500 mg PO DAILY 11/20/22 11/20/22 History Current Medications: Active Medications Sodium Chloride (Normal Saline Iv) 500 mls @ 100 mls/hr IV CONT .Q5H [facility] Sedation/Anesthesia: No previous sedation/anesthesia problems (including family history). [facility] Past Medical History Medical History Arthritis Asthma Laughlin's palsy Diabetes Morbid obesity Family History Family History Mother Diabetes mellitus, Onset Age: 75 Family history of cardiovascular disease, Onset Age: 75 Family history of renal failure, Onset Age: 75 Family history of arthritis Family history of kidney disease Family history of diabetes mellitus in first degree relative Family history of heart disease in male family member before age 55 Hypertension Father Family history of malignant neoplasm, Onset Age: 62 Family history of arthritis Family history of lung cancer Grandparent Diabetes mellitus Other Family history of malignant neoplasm of brain Social History Social History Smoking packs per day: 0.5 Smoking cigarettes per day: 10.0 Years smoked: 4 Smoking pack-years: 2.00 Smoking status: Former smoker Tobacco type: cigarettes Smoking end date: 09/15/72 Alcohol intake: never Substance use: never Substance use type: does not use Living arrangements: with family Spiritual care concerns: No Mod Sed Physical Exam Physical Exam Pre Procedural Exam: Normal: Appearance, Lungs, Heart Rate, Heart Rhythm, Neuro Exam, Abdomen, Extremities and Skin Hours since solid foods: 12 Hours since liquid intake: 8 Mallampati Classification: class III Internal Medicine - PN: Obj Da Vital Signs Vital Signs: Vital Signs - 24 hr 11/21/22 07:14 Temperature 36.1 C L Pulse Rate 69 Respiratory Rate 12 Blood Pressure 158/51 H Pulse Oximetry 97 Oxygen
--- NOTE | 2022-11-21 08:56 | WPDCARDPROC ---
Cardiac Cath Procedure Note Date of procedure:: 11/21/22 Performing physician:: CATHETERIZATION LABORATORY REPORT Procedure Date: 11/21/2022 Yardage Control Clerk: Sari Kruger M.D., LOCATED WITHIN [facility]? Referring Physician: Dr. Fiore ? Anesthesia: Versed and Fentanyl were ordered and given in my presence at 09:02, procedure ended at 10:51. Supervision of nurse monitored moderate sedation with Versed and Fentanyl was provided for 109 minutes. Total of Versed 4mg and Fentanyl 125mcg were administered by the Licensed Vocational Nurse RN Quin Mello. Pre-op Diagnosis: Coronary artery disease Post-op Diagnosis: 1. Significant obstructive proximal-mid LAD disease s/p successful IVUS-guided PCI with KELBY x 1 2. Mild-moderate disease of LCX. 3. Obstructive lesion of RPDA, however, given small caliber size of vessel, recommend medical management 4. Left ventricular end-diastolic pressure of 19mmHg 5. Gradient across aortic valve: 24mmHg Procedure(s): 1. Moderate sedation 2. Ultrasound-guided access of the right radial artery 3. Coronary angiography 4. Left heart cath 5. Ultrasound-guided access of the right common femoral artery 6. PCI of the proximal-mid LAD with KELBY x 1, with pre and post dilatation 7. IVUS of the LAD/LM 8. Angioseal closure of the right common femoral artery Access Site: Right radial artery Right common femoral artery Brief History and Clinical Indications: Patient is a 72-year-old female with a history of diabetes, hypertension, dyslipidemia, history of COVID infection, anxiety who is referred for anginal symptoms in the setting of abnormal stress test. All risks, benefits and alternatives to left heart catheterization with or without percutaneous coronary intervention was discussed at length with the patient. Risk of complications including but not limited to bleeding, infection, arrhythmia, stroke, worsening kidney function, blood loss, groin hematoma, limb loss, emergency coronary artery bypass grafting, and even were discussed with the patient and all questions were answered. The patient understood and wished to proceed. Time out called, patient name, date of , medical record number, allergies, procedure performed, identify Yardage Control Clerk, patient and staff member concurred with accurate data, procedure carried on. Findings: LEFT HEART CATHETERIZATION FINDINGS: 1. Left main: The left main coronary artery is widely patent without any significant obstructive disease. 2. Left anterior descending: The proximal LAD has mild luminal irregularities. The proximal-mid LAD at the level of the bifurcation of first diagonal branch has a 95-99% stenosis. The mid LAD has mild diffuse disease. The distal LAD has mild luminal irregularities. The first diagonal branch has mild diffuse disease without any focal obstructive disease. 3. Left circumflex: The proximal-mid LCX has mild diffuse disease. The AV groove LCX is diminutive. OM-1 is a small caliber vessel with mild diffuse disease. OM-2 is a medium caliber vessel with mild luminal irregularities. The mid LCX prior to the bifurcation of OM-2 and OM-3 has a moderate stenosis of 50%. OM-3 is diffusely diseased and of small caliber. 4. Right coronary artery: The RCA is the dominant vessel. The RCA has mild luminal irregularities. The RPLV is a very small caliber vessel and diffusely diseased. The RPDA is a small caliber vessel with a focal 90% stenosis in its mid portion. 5. Left ventricle: A. End-diastolic pressure 19mmHg. B. LV gram deferred. C. Gradient across aortic valve on catheter pullback: 24mmHg Description of Procedure: Informed consent signed and placed in the chart. Patient transferred to color laboratory technician room. Prepped and draped in usual sterile fashion. 2% lidocaine injected subcutaneously in right wrist area. 22-gauge venipuncture catheter used to access the right radial artery with the Seldinger technique. 6-FR slender sheath placed in right radial artery. Nitroglycerine and Vera
[2022-11-21 12:40] LABS: Glucose Point of Care 75 mg/dl (65-105)
--- NOTE | 2022-11-21 12:41 | SUR.PHASEII ---
Accuckeck per pt's request. Result of 75. Berrien juice given to pt.
--- NOTE | 2022-11-21 13:02 | SUR.PHASEII ---
pt used bedpan with assist. ingris well. rt groin remains d/i without hematoma. tr band in place rt wrist with 12cc air
[2022-11-21] MEDS: ACETAMINOPHEN 500 MG TABLET 1000 MG PO (13:20)
--- NOTE | 2022-11-21 13:26 | ECG_ITS ---
Measurements Intervals [place] Rate: 62 P: 92 NE: 255 QRS: 41 QRSD: 137 T: 18 QT: 413 QTc: 419 Interpretive Statements SINUS RHYTHM WITH FIRST DEGREE AV BLOCK VENTRICULAR PREMATURE COMPLEX RIGHT BUNDLE BRANCH BLOCK ABNORMAL ECG COMPARED TO ECG 02/05/2021 21:23:06 FIRST DEGREE AV BLOCK NOW PRESENT Electronically Signed On 11-21-2022 14:13:35 GAME TESTER by Abdullahi Fiore D.O.
== END 2022-11-21 15:45 | disposition home or self-care (01) ==
PROVIDERS: PCP Emergency Medicine; Visit Provider Internal Medicine
PROC: 4A023N7 Measurement of Cardiac Sampling and Pressure, Left Heart, Percutaneous Approach (ICD-10-PCS; CPT 93452; principal; 2022-11-21 08:30)
PROC: (CPT 36140; 2022-11-21 08:30)
DX: I25.10 Atherosclerotic heart disease of native coronary artery without angina pectoris (principal); E11.9 Type 2 diabetes mellitus without complications; J45.909 Unspecified asthma, uncomplicated; E66.01 Morbid (severe) obesity due to excess calories; Z68.42 Body mass index [BMI] 45.0-49.9, adult; Z87.891 Personal history of nicotine dependence; Z79.84 Long term (current) use of oral hypoglycemic drugs; Z79.82 Long term (current) use of aspirin; Z79.51 Long term (current) use of inhaled steroids
CPT/HCPCS: 36140; 36415; 80048; 82948; 85025; 92978; 93005; 93458; A9270; C1725; C1753; C1760; C1769; C1887; C1894; C9600; G0269; J0583; J1644; J2250; J3010; J7030; J7040

== ENCOUNTER 2023-02-06 09:17 | Outpatient (CLI) | payer OTHER, SELFPAY ==
--- NOTE | 2023-02-13 23:32 | WPDSLEEPSTUD ---
Sleep Study Date of Study: 02/06/23 Ordering Provider: Abdullahi Fiore DO Interpreting Physician: Rocio Mesa MD Sleep Study Type: Split Polysomnogram Height: 1.57 m Weight: 107.955 kg Body Mass Index: 43.5 Neck Circumference (inches): 14 [place]: 3 Reason for Sleep Study Hypersomnia Sleep History Ninfa Turner is a 72-year-old woman with increasing fatigue. She does not awaken from sleep feeling short of breath, does not awaken with heartburn, belching or coughing. She does not snore and others do not complain that she snores. She rarely has trouble sleeping with a cold. She does not gasp for breath at night or have breathing problems at night reported to her by others. She occasionally sweats excessively at night. She rarely notices her heart pounding or beating irregularly. She rarely falls asleep during the day, never involuntarily or while driving. She does not have loss of muscle tone with strong emotion. She does not have daytime difficulties due to excessive sleepiness, she is retired. She does not feel paralyzed on waking or falling asleep. She occasionally has vivid dreamlike scenes on waking or falling asleep. She does not feel afraid to go to sleep. She rarely has nightmares. She occasionally remembers her dreams. She frequently has racing thoughts. She rarely feels sad or depressed. She rarely has anxiety. She rarely notices parts of her body jerking. She does not kick at night. She frequently has crawling and aching feelings in her legs as well as leg pain during the night. She does not grind her teeth at night for have morning jaw pain. She frequently is bothered by pain during the day and frequently awakened by pain at night. She rarely wakes up feeling stiff the morning. She occasionally wakes up with sore achy muscles. She rarely wakes up with pain in the neck and spine. She rarely has insomnia which she attributes to too much coffee. 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 Normal bedtime is between 11:30 p.m. and 12 midnight, falling asleep within 15 minutes to 1 hour. She wakes once at night in the bilingual inside sales representative hours around 6:30 a.m.. She is able to return to sleep within 10 minutes. She wakes for the day at 9:00 a.m.. She estimates getting between 8 and 10 hours of sleep at night. Her weekend schedule is similar however she wakes at 6:00 a.m. on Sundays. She does not generally take naps. A short nap is not refreshing. She is tired after waking for 2 hours. She feels better in the evening compared to other times of day. Habits: Tobacco: quit 50 years ago. Caffeine: 1-2 cups of coffee in the morning. Alcohol: none. Recreational substances: none. [facility] Past Medical History Medical History (Updated 02/13/23 @ 23:49 by Rocio Mesa MD) Arthritis Asthma Laughlin's palsy Diabetes HTN (hypertension) Morbid obesity Family History Family History Mother Family history of heart disease in male family member before age 55 Family history of cardiovascular disease, Onset Age: 75 Family history of kidney disease Family history of arthritis Family history of diabetes mellitus in first degree relative Family history of renal failure, Onset Age: 75 Hypertension Diabetes mellitus Father Family history of malignant neoplasm, Onset Age: 62 Family history of arthritis Family history of lung cancer Grandparent Diabetes mellitus Other Family history of malignant neoplasm of brain Social History Social History Smoking packs per day: 1 Smoking cigarettes per day: 20.0 Years smoked: 6 Smoking pack-years: 6.00 Smoking status: Former smoker Tobacco type: cigarettes Smoking end date: 09/15/22 Alcohol intake: never Substance use: never Substance use type: does not use Living arrangements: with family Spiritual care kassandra
[2023-02-13 23:56] VITALS: BMI 43.5
== END 2023-02-07 07:52 | disposition home or self-care (01) ==
LOC: ANHCSM 09:18
PROVIDERS: PCP Emergency Medicine; Visit Provider Internal Medicine Cardiovascular Disease
DX: G47.33 Obstructive sleep apnea (adult) (pediatric) (principal); G47.10 Hypersomnia, unspecified; Z68.41 Body mass index [BMI] 40.0-44.9, adult
CPT/HCPCS: 95811

== ENCOUNTER 2023-04-17 15:00 | Outpatient (RCR) | payer OTHER, SELFPAY ==
[2023-01-01 19:06] LABS: Glucose Point of Care 111 mg/dl (65-105)
[2023-01-01 19:06] LABS: Glucose Point of Care 122 mg/dl (65-105)
[2023-01-20 15:59] LABS: Glucose Point of Care 94 mg/dl (65-105)
[2023-01-29 16:10] LABS: Glucose Point of Care 109 mg/dl (65-105)
[2023-02-03 16:08] LABS: Glucose Point of Care 114 mg/dl (65-105)
[2023-02-03 16:08] LABS: Glucose Point of Care 128 mg/dl (65-105)
[2023-02-17 16:13] LABS: Glucose Point of Care 136 mg/dl (65-105)
[2023-02-17 16:13] LABS: Glucose Point of Care 113 mg/dl (65-105)
[2023-02-24 16:10] LABS: Glucose Point of Care 88 mg/dl (65-105)
[2023-04-07 16:22] LABS: Glucose Point of Care 106 mg/dl (65-105)
[2023-04-09 16:11] LABS: Glucose Point of Care 92 mg/dl (65-105)
[2023-04-10 16:07] LABS: Glucose Point of Care 98 mg/dl (65-105)
[2023-04-10 16:07] LABS: Glucose Point of Care 123 mg/dl (65-105)
[2023-04-25 09:09] LABS: Glucose Point of Care 81 mg/dl (65-105)
== END 2023-04-17 23:59 | disposition home or self-care (01) ==
LOC: ANHCPREHAB 15:00
PROVIDERS: PCP Emergency Medicine; Visit Provider Internal Medicine Cardiovascular Disease
DX: Z95.5 Presence of coronary angioplasty implant and graft (principal)
CPT/HCPCS: 93798

== ENCOUNTER 2023-04-24 15:00 | Outpatient (RCR) | payer OTHER, SELFPAY | END 2023-04-28 15:06 | disposition home or self-care (01) | LOC: ANHCPREHAB 15:00 | PROVIDERS: PCP Emergency Medicine; Visit Provider Internal Medicine Cardiovascular Disease | DX: I49.9 Cardiac arrhythmia, unspecified (principal) | CPT/HCPCS: 93798 ==

== ENCOUNTER 2023-05-20 16:32 | Outpatient (CLI) | payer OTHER, SELFPAY ==
--- NOTE | ~2023-05-20 | MM_ITS ---
EXAMINATION: MM screening radhika BI w brittni HISTORY: Screening mammogram TECHNIQUE: Craniocaudal and mediolateral oblique 3-D tomosynthesis images were obtained and synthetic 2-D images were generated. CAD analysis was submitted and interpreted. COMPARISON: January 02, 2022, November 02, 2020, June 08, 2019 bilateral screening mammogram exami [place] BREAST PARENCHYMAL COMPOSITION: The breasts are almost entirely fatty. FINDINGS: There is no evidence of suspicious mass, calcification, or architectural distortion to sugg est malignancy in either breast. There has been no suspicious interval change. IMPRESSION: 1. No mammographic evidence of malignancy. 2. Recommend routine screening mammography in one year. BI-RADS Category 1: Negative Reviewed, dictated and finalized at location A.
== END 2023-05-20 16:33 | disposition home or self-care (01) ==
PROVIDERS: PCP Emergency Medicine; Visit Provider Emergency Medicine
DX: Z12.31 Encounter for screening mammogram for malignant neoplasm of breast (principal)
CPT/HCPCS: 77063; 77067

== ENCOUNTER 2024-03-15 19:09 | Emergency (ER) | payer OTHER, SELFPAY ==
[2024-03-15 19:12] VITALS: BP 151/74; PULSE 77; RESP 19; TEMP 36.6; O2SAT 100
[2024-03-15 19:42] VITALS: BP 151/74; PULSE 77; RESP 19; TEMP 36.6; O2SAT 100
--- NOTE | 2024-03-15 19:45 | ED.ANIMALBIT ---
HPI - Animal Bite General Chief Complaint: Animal Bite Stated Complaint: bug bite Time Seen by Provider: 03/15/24 19:39 Source: patient Mode of arrival: ambulatory Limitations: no limitations History of Present Illness HPI narrative: This is a 74 year old female that presents to the ER for a possible bug bite to the right thigh. Reports itching to the area. Reports redness surrounding which has worsened which prompted her to be seen. Denies fevers. Related Data Home Medications Medication Instructions Recorded Confirmed acetaminophen 500 mg tablet 1,000 mg PO BID PRN Pain 07/20/19 03/04/24 (Tylenol Extra Strength) cholecalciferol (vitamin D3) 25 2,000 unit PO DAILY 07/20/19 03/04/24 mcg (1,000 unit) capsule (Vitamin D3) cyanocobalamin (vitamin B-12) 1,000 mcg PO DAILY 07/20/19 03/04/24 1,000 mcg tablet (Vitamin B-12) docusate sodium 100 mg capsule 100 mg PO BID 11/20/22 03/04/24 magnesium 500 mg tablet 500 mg PO DAILY 11/20/22 03/04/24 lisinopril 40 mg tablet See Rx Instructions .Route .COMPLEX 11/21/23 03/04/24 Allergies Allergy/AdvReac Type Severity Reaction Status Date / Time oxycodone Allergy Intermediate Nausea and Verified 03/15/24 19:38 Vomiting codeine Allergy Unknown Nausea and Verified 03/15/24 19:38 Vomiting metformin Allergy Unknown Nausea Verified 03/15/24 19:38 Review of Systems Review of Systems: CONSTITUTIONAL: Denies fever SKIN: Reports redness and itching. All systems reviewed & are unremarkable except as noted in HPI and below PMFSH Past Medical History Medical History (Updated 03/15/24 @ 20:09 by Kaylee Trevino PA-C) Abnormal EKG Abnormal uterine bleeding Actinic keratosis Acute cystitis without hematuria Acute pain of right knee Acute UTI Aortic stenosis Arthritis Asthma B12 deficiency Back pain at L4-L5 level Laughlin's palsy Bilateral carotid bruits Bronchitis Cardiac murmur, unspecified Chronic back pain Chronic cough Chronic pain of left ankle Chronic stasis dermatitis Constipation Contusion of right knee, initial encounter Dependent edema Diabetes Diastolic dysfunction Disorder of arteries and arterioles, unspecified Diverticulosis of large intestine without hemorrhage Dysuria Epigastric pain Fatigue Former tobacco use Heel pain, bilateral HTN (hypertension) HTN (hypertension), benign Hx of fall Injury of right knee Intractable headache LBBB (left bundle branch block) Loose body in knee, right knee Lumbar spondylosis Lumbosacral radiculopathy Menopausal and female climacteric states Metabolic alkalosis Morbid obesity Neoplasm of uncertain behavior of skin Nonrheumatic aortic valve insufficiency Obstruction of tear duct of both sides Other abnormal findings in urine Other chronic pain Other hyperlipidemia Pain in left foot Pain in left hip Pain of both hip joints Patient had no falls in past year Periorbital cellulitis of right eye Peripheral polyneuropathy Pneumonia due to 2018-nCoV Primary osteoarthritis involving multiple joints Primary osteoarthritis of both hips Primary osteoarthritis of left ankle Primary osteoarthritis of left knee Primary osteoarthritis of right knee Pulmonary fibrosis Right bundle branch block (RBBB) Screening for osteoporosis Senile calcific aortic valve sclerosis Shoulder pain, left Subacute frontal sinusitis Traumatic arthritis of ankle Type 2 diabetes mellitus URI with cough and congestion Urine frequency Yeast infection of the skin Surgical History Surgical History History of gastric bypass Family History Family History Mother Family history of heart disease in male family member before age 55 Family history of cardiovascular disease, Onset Age: 75 Family history of kidney disease Family history of arthritis Family history of diabetes mellitus in first degree relative Family history
== END 2024-03-15 20:35 | disposition home or self-care (01) ==
PROVIDERS: Emergency Provider Physician Assistant; PCP Emergency Medicine
DX: S70.361A Insect bite (nonvenomous), right thigh, initial encounter (principal); E11.9 Type 2 diabetes mellitus without complications; I10 Essential (primary) hypertension; Z87.891 Personal history of nicotine dependence; W57.XXXA Bitten or stung by nonvenomous insect and other nonvenomous arthropods, initial encounter
CPT/HCPCS: 99283

== ENCOUNTER 2024-10-30 17:23 | Emergency (ER) | payer OTHER, SELFPAY ==
--- NOTE | ~2024-10-30 | XR_ITS ---
HISTORY: GLF, left knee pain COMPARISON: None TECHNIQUE: 3 views of the left knee were performed FINDINGS: No acute or subacute fracture. Medial and lateral tibiofemoral joint space narrowing is identified. No suprapatellar joint effusion is identified. The infrapatellar joint space is clear. IMPRESSION: Degenerative disease, without acute fracture. Reviewed, dictated and finalized at location A. HET BEADER
--- NOTE | ~2024-10-30 | XR_ITS ---
HISTORY: GLF, hip pain COMPARISON: None TECHNIQUE: 2 views of the left hip along with an AP view of the pelvis FINDINGS: No acute fracture or dislocation is identified. Superior lateral sclerosis of the femoral acetabular joint space is present consistent with osteoarth ritis. Fecal stasis within the colon. Air within the rectum. Age-appropriate mineralization. IMPRESSION: Degenerative disease without acute fracture or dislocation Reviewed, dictated and finalized at location A. LAY OUT PLANNER
--- NOTE | ~2024-10-30 | CT_ITS ---
CLINICAL INDICATION: Ground-level fall COMPARISON: 03/28/2019.. TECHNIQUE: An enhanced CT of the abdomen and pelvis was performed utilizing multislice spiral Veeda ue reconstructed at 5 mm slice thickness. Coronal and sagittal reconstructions were performed. This CT examination was performed utilizing dose reduction techniques. DLP: 1990 mGy-cm FINDINGS/OBSERVATIONS: Lung: The lungs are clear. The heart is of normal size, without pericardial effusion. Mediastinum: No pathologically enlarged or morphologically suspicious lymph nodes are identified within the spinal , bilateral axilla, within the soft tissues of the anterior chest wall. Calcified lymph nodes are identified within the mediastinum, consistent with prior granulomatous dise ase. Soft tissues of the chest: Unremarkable. Bones of the chest: No acute fracture. No lytic or blastic lesions are identified. Liver: The liver enhances homogeneously and is not enlarged measuring 16 cm in longitudinal dimension. Gallbladder and biliary system: The gallbladder is surgically absent. Pancreas: The pancreas enhances homogeneously, without ductal dilatation. Spleen: Punctate calcifications identified within the splenic parenchyma, suggesting prior granulomat ous disease. The remainder of the splenic parenchyma is unremarkable. The spleen is not enlarged. Kidneys: The bilateral kidneys enhance symmetrically without hydronephrosis or renal calculi. Adrenal glands: Unremarkable. Gastrointestinal tract: Fecal stasis within the colon. Appendix: The appendix is not definitively visualized. However, no pericecal inflammatory change is identified suggest the presence of acute appendicitis. Vasculature: No significant calcified atherosclerotic disease is present. No aneurysmal dilatation. Lymph nodes: Scattered nonpathologically enlarged lymph nodes within the root of the mesentery and deep in the pel vis. Pelvic structures: The bladder is minimally distended and otherwise unremarkable. The uterus is anteverted and anteflexed, and otherwise unremarkable. Body wall and musculoskeletal: Trace degenerative disease within the upper lumbar spine, with osteophyte formation and disc space na rrowing. IMPRESSION: No acute pathology is appreciated. Findings suggesting prior granulomatous disease, as detailed above. Reviewed, dictated and finalized at location A. RAMMING INTERN
--- NOTE | ~2024-10-30 | XR_ITS ---
HISTORY: GLF COMPARISON: None TECHNIQUE: 2 views of the left shoulder were performed FINDINGS: No acute fracture. The glenohumeral and acromioclavicular joint space is maintained The visualized portion of the adjacent left lung is clear. The humeral head is well seated within the glenoid fossa. IMPRESSION: No acute fracture or anterior dislocation. Reviewed, dictated and finalized at location A. WORKER
--- NOTE | ~2024-10-30 | CT_ITS ---
History: Ground-level fall PROCEDURE: CT cervical spine without intravenous contrast. COMPARISON: None TECHNIQUE: Multiple contiguous axial images of the cervical spine were performed without the administration of i ntravenous contrast. DLP: 563 mGy-cm FINDINGS: Straightening of the normal curvature of the cervical spine is identified, likely muscular in origin. No acute fractures are present. 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 No soft tissue abnormality is present. The airway is patent. Impression: Straightening of the normal curvature of the cervical spine, likely muscular in origin. Degenerative disease, without acute fracture. Reviewed, dictated and finalized at location A. CULTURAL SALES REPRESENTATIVE Impression: Straightening of the normal curvature of the cervical spine, likely muscular in origin. Degenerative disease, without acute fracture.
--- NOTE | ~2024-10-30 | CT_ITS ---
History: Ground-level fall PROCEDURE: CT head without contrast. COMPARISON: None TECHNIQUE: Axial imaging of the head performed from the skull base to the vertex without IV contrast. Sagittal a nd coronal reformations obtained. DLP: 605 mGy-cm FINDINGS: The ventricles are normal in size, shape and position. There is no mass, mass effect or midline shift. There is no abnormal extra-axial fluid collection or intracranial hemorrhage. Visualized paranasal sinuses are clear. The mastoid air cells are well aerated. No acute displaced fractures within the overlying cranium. Impression: No acute intracranial hemorrhage or suspicious mass effect. Reviewed, dictated and finalized at location A. LOADER Impression: No acute intracranial hemorrhage or suspicious mass effect.
--- NOTE | ~2024-10-30 | XR_ITS ---
HISTORY: GLF, point tenderness over olecranon COMPARISON: None TECHNIQUE: 3 limited views of the left elbow were performed FINDINGS: No acute fracture is identified. No elevation of the anterior or posterior fat pads are identified to suggest a supracondylar fracture (although technique limits this detection). Overlying soft tissues are unremarkable. Bone mineralization is age-appropriate. IMPRESSION: No acute or subacute fracture is identified. If clinical suspicion persists, cross-sectional imaging may be performed. Reviewed, dictated and finalized at location A. TIE STITCHER
--- OUTSIDE RECORDS SUMMARY | 2024-10-30 17:26 | XMS_ITS ---
Author Name GELY MASSEY M.D. Address [address] [place] [address] Phone [phone] Organization [facility] ([facility]) Care Team Providers Care Specialty Plant Supervisor Name Role Phone BRYSON GELY Unavailable [phone] Reji Gentile Unavailable Unavailable EKTA GUIDO Unavailable [phone] GELY DOZIER Unavailable [phone] Reason for Referral Not Available Allergies, adverse reactions, alerts Allergen Type Reaction Severity Status Onset Date Codeine Allergy to substance (disorder) Unknown Active N/A Oxycodone Allergy to substance (disorder) Unknown Active N/A MetFORMIN Allergy to substance (disorder) Unknown Active N/A History of medication use Medication Class Instructions Start Date End Date Lisinopril 40 mg Tab 1/2 tablet orally daily 2024-06-16 4 No Data Available Magnesium Oxide 400 mg Tab No Data Available 2024-06-16 4 No Data Available Tylenol Extra Strength 500 mg Tab Take 2 tablets 8 hours as needed 2024-07-08 No Data Available Aspirin 81 mg Tab delayed rel 1 tablet every day 2024-07-08 No Data Available Vitamin D3 1.25 mg (29650 UT) Cap 1 capsule 4 times weekly 2024-07-08 No Data Availab le Stool Softener 100 mg Cap 1 capsule oral ly daily as needed 2024-07-08 No Data Available Vitamin B-12 100 MCG Tab No Data Available 2024-07-08 No Data Available Problem List Problem Status Onset Date Resolved Date Mixed hyperlipidemia due to type 2 diabetes mellitus A ctive 2024-07-08 N/A Primary hypertension Active 2024-07-08 N/A Morbid (severe) obesity due to excess calories Active 2024-07-08 N/A Atherosclerotic heart diseas e of [place] coronary artery without angina pectoris Active 2024-07-08 N/A Type 2 diabetes mellitus without complications Active 2024-07-08 N/A Mild intermittent asthma, uncomplicated Active 2 N/A CKD (chronic kidney disease) stage 2, GFR 60-89 ml/min Active 2024-07-08 N/A SARA (obstructive sleep apnea) Active 2024-07-08 N/A Encounters Encounters Type Facility Date of Service Diagnosis/Co mplaint Home visit for evaluation and management of new patient requiring medically appropriate examination and moderate level of medical decision making. If using time, at least 60 minutes total time on [facility] [place] 07/08/2024 Chronic kidney disease, stag e 2 (mild)Type 2 diabetes mellitus with other specified complicationMixed hyperlipidemiaHypertensive chronic kidney disease w stg 1-4/unsp chr kdnyMorbid (severe) obesity due to excess caloriesAthscl heart disease of [place] coronary artery w/o ang pctrsMild intermittent asthma, uncomplicatedObstructive sleep apnea (adult) (pediatric)Body mass index (BMI) 40.0-44.9, adult Home visit for evaluation and management of new patient requiring medically appropriate examination and moderate level of medical decision making. If using time, at least 60 minutes total time on [facility] [place] 07/08/2024 Essential (primary) hyperten jhonny Home visit for evaluation and management of new patient requiring medically appropriate examination and moderate level of medical decision making. If using time, at least 60 minutes total time on [facility] [place] 07/08/2024 Essential (primary) hyperten jhonny Vital Signs Date of Collection Vitals 2024-07-08 06:39:50 Height - 160.02 cmWe ight - 111.13 kgBody Mass Index (BMI) - 43.4 kg/m2BP Diastolic - 68.0 mm[Hg]BP Systolic - 132.0 mm[Hg]Heart Rate - 80.0 /minRespiratory Rate - 18.0 /minBody Temperature - 36.89 CelO2 % BldC Oximetry - 98.0 % Social History Social History Social History Observation Description Effec tive Time Current Smoking Status Former smoker 2024-10-16 5 Sex Female History of Procedures Procedures Service Procedure code Service date Servicing provider Phone# Home visit for evaluation and management of new patient requiring medically appropriate examination and moderate level of medical decision making. If using time, at least 60 minutes total time on [facility] [id number] 2024-07-08 No Data Available No Data Availa ble Most recent systolic blood pressure 130 -139 mm Hg 3075F 2024-07-08 No Data Available No Data Availa ble Most recent dystolic blood pressure <80 mm Hg 3078F 2024-07-08 No Data Available No Data Availa ble Functional Status No Information Mental Status No Information Assessments Date of Service Assessments 2024-07-08 06:39:50 CKD (chronic kidney disease) stage 2, GFR 60-89 ml/minMixed hyperlipidemia due to type 2 diabetes mellitusPrimary hypertensionMorbid (severe) obesity due to excess caloriesAtherosclerotic heart disease of [place] coronary artery without angina pectorisType 2 diabetes mellitus without complicationsMild intermittent asthma, uncomplicatedOSA (obstructive sleep apnea) Plan of Care Date of Service Plans 2024-07-08 06:39:50 Albumin/creat - 39.0 , eGFR 77. Monitored with routine labs by PCP. F/U as directed.Patient currently takes atorvastatin 20mg daily for management. Most recent full lipid panel unavailable to me, but LDL was 76. Continue taking medications as prescribed and F/U as directed.Patient currently takes lisinopril 40mg and lasix 40mg daily. BP controlled today. Continue taking medications as prescribed and F/U as directed.Patient aware of positive dietary and lifestyle changes needed. Encouraged application of these.Patient currently takes atorvastatin 20mg daily, aspirin 81mg daily, and has a stent placed. Continue taking medications as prescribed and F/U as directed.Patient currently takes glimepiride 2mg daily and pioglitazone 15mg daily. A1C 5.9 from Oct. Continue taking medications as prescribed and F/U as directed.Patient does not have inhalers anymore and has not had an exacerbation in years. Follows pulmonology for sleep medicine.Patient is non-compliant with CPAP as she does not sleep when using it and her takes it off of her in the middle of the night and tries putting it on himself. Pulmonology is aware. Goals Date Goal 2024-07-08 Continue F/U as dire cted by PCP and specialists. Chronic conditions appear controlled at this time. 2024-07-08 Recommended influenz a vaccine - patient declined. 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 Commended her on taking care of . Health Concerns Date Concern 2024-07-08 Healthy House Calls is a service that involves a physician or advanced practice provider conducting comprehensive assessments in your patient s home or virtually to address crucial areas such as chronic conditions, quality gaps, social concerns, fall risk prevention, and various screenings. Please note that your patient will remain attributed to you even though they are participating in this service. If you have any questions, please reach out directly to our team at the phone number above.Your patient, Ninfa Turner, 1950, was seen today for a Healthy House Call visit. Patient read rights and responsibilities and consented to treatment. The purpose of this summary is to update you on the patient's current health status and share any relevant findings from the examination. 2024-07-08 Recommendations:90 d ay refills for pioglitazone 2024-07-08 Patient is a 74yr ol d female. They are being seen today for a Healthy House Calls comprehensive exam. Patient denies any current concerns or symptoms. They deny any recent hospitalizations, illness, injury, or falls. Current diagnoses and medications are as listed below. Patient lives with family and spouse. They are independent with their care. They do not use any form of assistive device for ambulation. They help care for their spouse with Alzheimer's.
--- OUTSIDE RECORDS SUMMARY | 2024-10-30 17:26 | XMS_ITS | Referral Summary ---
Author Organization [facility] [address] Address [address] [place] [address] Care Team Providers Care Quarry Plug And Feather Driller Name Role Phone Oli Ventura MD Primary Care Provide r Allergies Active Allergy Reactions Criticality Noted Date Comments Codeine Metformin Oxycodone Medications pioglitazone (ACTOS) 30 mg tablet take 1 tablet by oral route every day 0 0 01/24/2016 Active cholecalciferol (VITAMIN D3) 1,000 unit capsule take 1 by Oral route once 0 0 01/24/2016 Active glimepiride (AMARYL) 2 mg tablet take 1 tablet by oral route every day 0 0 01/24/2016 Active lisinopril (PRINIVIL,ZESTR IL) 40 mg tablet take 1 tablet by oral route every day 0 0 01/24/2016 Active lovastatin (MEVACOR) 40 mg tablet take 1 tablet by oral route every day with the evening meal 0 0 01/24/2016 Active aspirin (ASPIR-81) 81 mg tablet take 1 tablet by oral route every day 0 0 01/24/2016 Active furosemide (LASIX) 80 mg tablet take 1 tablet by oral route 2 times every day 0 0 01/24/2016 Active Active Problems No known active problems Social History Tobacco Use Types Packs/Day Years Used Date Smoking Tobacco: Former Cigarettes Q uit: 09/15/1972 Alcohol Use Standard Drinks/Week Comments No 0 (1 standard drink = 0.6 oz pur e alcohol) Personal Safety Answer Date Recorded Getting School Help Needed Not on file 11/29 Comments Unknown Sex and Gender Information Value Date Recorded Sex Assigned at Not on file Legal Sex Female 3:47 AM FRAME STRIPPER AND CRUSHER Gender Identity Not on file Sexual Orientation Not on file Last Filed Vital Signs Vital Sign Reading Time Taken Comments Blood Pressure 120/80 09/04/2021 3:30 PM FRAME STRIPPER AND CRUSHER Pulse 54 09/04/2021 3:30 PM FRAME STRIPPER AND CRUSHER Temperature - - Respiratory Rate - - Oxygen Saturation 97% 09/04/2021 3:30 PM FRAME STRIPPER AND CRUSHER Inhaled Oxygen Concentration - - Weight 103.9 kg (229 lb) 01/24/2016 2:41 PM CDT Height 160 cm (5' 3 ) 01/24/2016 2:41 PM CDT Body Mass Index 40.57 01/24/2016 2:41 PM CDT Plan of Treatment Not on file Insurance Care Teams Quarry Plug And Feather Driller Relationship Specialty Start Date End Date Oli Ventura MD [address] [facility] [facility] [place] [address] PCP - General Emergency Medicine 09/04/21
--- OUTSIDE RECORDS SUMMARY | 2024-10-30 17:26 | XMS_ITS | Continuity of Care Document ---
Author Name [facility] Organization [facility] Care Team Providers Care Basketball Scout Name Role Phone [facility] Unavailable Unavailable Problems Combined list of problems from Department of Defense and Veterans [facility] facilities. It does not include entries that were removed or entered in error. Problem Status Onset Date Problem Type Date of Resolution Comments Source Diagnosis: ICD-10-CM Z63.6 Dependent relative needing care at home Active Diagnosis [facility] Diagnosis: ICD-10-CM Z74.1 Need for assistance with personal care Active Diagnosis [facility] Encounters Combined list of: 1) Encounters from Department of Veterans Affairs facilities going backup to the last 18 months, not all [place] inpatient encounters are included; 2) Encounters from the Department of [facility] facilities going backup to 280 months. Location Location Details Encounter Type Encounter Number Reason For Visit Attending Provider ADM Date DC Date Status Disposition Source [facility] Outpatient Encounter [id number] SHA SELBY CY L 05/21 [facility] Outpatient Encounter [id number] 08/19 [facility] ASSMT/REAS SESSMENT [id number] Diagnos is: ICD-10- CM Z63.6 Depende nt relativ e needing care at home SHA SELBY CY L 08/22 [facility] Outpatient Encounter [id number] 12/22 [facility] CASE MANAGEMENT [id number] Diagnos is: ICD-10- CM Z74.1 Need for assista nce with persona l ESTHER Leahy 12/23 [facility] Outpatient Encounter [id number] 06/02 [facility] PT EDUCATION NOC INDIVID [id number] Diagnos is: ICD-10- CM Z63.6 Depende nt relativ e needing care at home MARY,CAR A A 06/03 [facility] Outpatient Encounter [id number] 06/03 [facility] PT EDUCATION NOC INDIVID [id number] Diagnos is: ICD-10- CM Z63.6 Depende nt relativ e needing care at home MARY,CAR A A 08/27 [facility]
--- OUTSIDE RECORDS SUMMARY | 2024-10-30 17:26 | XMS_ITS | Clinical Summary ---
Author Organization [facility] Address [address] [place] [address] Care Team Providers Care Rn Recruitment Name Role Phone Oli Ventura MD Primary Care Provider [phone] Source Comments [facility],non-[facility] Affiliates and Associated Physician Practices is amultiple site organization consisting of ambulatory clinics and hospital sitesin [place], [place], [place] and [place]. This disclosure is being madepursuant to the Care Everywhere program and may not contain all information available regarding this patient. Last updated 18.[facility] Social History Tobacco Use Types Packs/Day Years Used Date Smoking Tobacco: Never Assessed Sex and Gender Information Value Date Recorded Sex Assigned at Not on file Gender Identity Not on file Sexual Orientation Not on file Plan of Treatment Health Maintenance Due Date Last Done Comments BONE DENSITY TESTING 1950 COLOGUARD (AGES 45-75) - COL ON CA SCREENING 1950 COLON MONITORING 1950 COLONOSCOPY - COLON CA SCREENING 1950 CT COLONOGRAPHY - COLON CA SCREENING 1950 Colorectal Cancer Screening 1950 FIT - COLON CA SCREENING 1950 FLEX SIG - COLON CA SCREENING 1950 LIPID TESTING 1950 MAMMOGRAM 1950 HEPATITIS C SCREENING 02/25/1968 DTAP/TDAP/TD VACCINES (1 - Tdap) 1969 PNEUMOCOCCAL VACCINE 50+ (1 of 1 - PCV) 2000 ZOSTER VACCINE (1 of 2) 2000 COVID-19 VACCINE ( - 2023-2 5 season) 2024 INFLUENZA VACCINE (#1) 2024 DEPRESSION SCREENING 09/15/2024 MEDICARE AWV CALENDAR YEAR 2024 Respiratory Syncytial Virus (RSV) Vaccine Pt: or over 60 yrs (1 - 1-dose 75+ series) 2025 HEPATITIS B VACCINE Aged Out No longe r eligible based on patient's age to complete this topic HIB VACCINE Aged Out No longer eligi ble based on patient's age to complete this topic HPV VACCINE Aged Out No longer eligi ble based on patient's age to complete this topic MENINGOCOCCAL (Group B) VACCINE Aged Out No longer eligible based on patient's age to complete this topic MENINGOCOCCAL VACCINE Aged Out No susanne toro eligible based on patient's age to complete this topic Care Teams Rn Recruitment Relationship Specialty Start Date End Date Oli Ventura MD [address] [address] PCP - General 05/12/19
--- OUTSIDE RECORDS SUMMARY | 2024-10-30 17:26 | XMS_ITS | Encounter Summary ---
Author Organization [facility] Address [address] [place] [address] Care Team Providers Care Concrete Tile Machine Operator Name Role Phone Oli Ventura MD Primary Care Provider Encounter Details Date Type Department Care Team (Late st Contact Info) Description 12/07/2021 Lab Requisition [facility] DermPath Lab [address] [place] [id number] Jacques Ren MD [address] [place] [address] Social History Tobacco Use Types Packs/Day Years Used Date Smoking Tobacco: Never Assessed Sex and Gender Information Value Date Recorded Sex Assigned at Not on file Gender Identity Not on file Sexual Orientation Not on file documented as of this encounter Plan of Treatment Not on file documented as of this encounter Procedures Procedure Name Priority Date/Time Associated Diagnosis Comments DERMATOPATHOLOGY Routine 12/06/2021 12:0 0 AM CDT documented in this encounter Results * DERMATOPATHOLOGY (12/06/2021 12:00 AM CDT) Case Report Dermatopathology Report Case: [id number] Authorizing Provider: Jacques Ren MD Collected: 12/06/2021 12:00 AM Ordering Location: [facility] Care DermPath Lab Received: 12/07/2021 02:59 PM Pathologist: Marichuy Mello MD Specimen: Skin, left forearm 11:32 AM CDT DERMATOPATHOLOGY LABORATORY Final Diagnosis Specimen A. SKIN, left forearm: DERMATOFIBROMA (D23.9) 11:32 AM CDT DERMATOPATHOLOGY LABORATORY Clinical History DF vs. MM vs. Other. Path# [id number] 11:32 AM CDT DERMATOPATHOLOGY LABORATORY Gross Description Specimen A: Received is one formalin filled container labeled with the patient's name and designated left forearm. The specimen consists of a shave biopsy measuring [id number]. Jar 0. 11:32 AM CDT DERMATOPATHOLOGY LABORATORY Microscopic Description Specimen A. SKIN, left forearm: There is epidermal hyperplasia. Within the dermis, there are fibrohistiocytic cells in haphazard array among coarse collagen bundles. 2 11:32 AM CDT DERMATOPATHOLOGY LABORATORY Disclaimer An external and internal positive and negative controls are appropriate for the histochemical, immunohistochemical and immunofluorescence stain(s) in this case (if any), except where stated explicitly. The performance characteristics of the stain(s) cited in this report were developed and its performance characteristic determined by the Dermatopathology Laboratory at [facility], directed by Dr. Paxton Mcmanus. These tests need not be, and therefore are not, approved by the [place] Food and Drug Administration. The tests are used for clinical purposes. Billing Codes Specimen Charges Stain Charges 89712 1 2 11:32 AM CDT DERMATOPATHOLOGY LABORATORY Embedded Images 11:32 AM CDT DERMATOPATHOLOGY LABORATORY Pathology/Cytolog y TISSUE SPECIMEN FROM SKIN / Unknown 12/06/2021 12/07/2021 2:59 PM CDT Jacques Ren MD LAB - PATHOLOGY/CYTO LOGY ORDERABLES DERMATOPATHOLOGY LABORATORY [facility] - Department of Dermatology [facility] Specialized Medicine [address] [place] [address], [address] [phone] documented in this encounter Visit Diagnoses Not on filedocumented in this encounter Care Teams Concrete Tile Machine Operator Relationship Specialty Start Date End Date Oli Ventura MD [address] [facility] [address] [place] [address] PCP - General 05/12/19 documented as of this encounter
--- OUTSIDE RECORDS SUMMARY | 2024-10-30 17:26 | XMS_ITS | Clinical Summary ---
Author Organization [facility] [address] Address [address] [place] [address] Care Team Providers Care Bellman Captain Name Role Phone Oli Ventura MD Primary [...] Active Active Problems No known active problems Surgical History Surgery Date Site/Laterality Comments CHOLECYSTECTOMY Cholecystectomy Medical History Medical History Date Comments Type 2 diabetes mellitus (HCC) D iabetes type 2 Heart valve disease Valvular dis ease Hx Other Medical morbid obesity Hx Other Medical gastric staplin g procedure for weight loss Social History Tobacco Use Types Packs/Day Years [...] on file Legal Sex Female 3:47 AM BUSINESS PROCESS COORDINATOR Gender Identity Not on file Sexual Orientation Not on file Obstetrics History Last Filed Vital Signs Vital Sign Reading Time Taken Comments Blood Pressure 120/80 09/04/2021 3:30 PM BUSINESS PROCESS COORDINATOR Pulse 54 09/04/2021 3:30 PM BUSINESS PROCESS COORDINATOR Temperature - - Respiratory Rate - - Oxygen Saturation 97% 09/04/2021 3:30 PM BUSINESS PROCESS COORDINATOR Inhaled Oxygen Concentration - - Weight 103.9 kg (229 lb) 01/24/2016 2:41 PM CDT Height 160 cm (5' 3 ) 01/24/2016 2:41 PM CDT Body Mass Index 40.57 01/24/2016 2:41 PM CDT Plan of Treatment Not on file Insurance HEALTHCARE Care Teams Bellman Captain Relationship Specialty Start Date End Date Oli Ventura MD [address] [place] [id number] PCP - General Emergency Medicine 09/04/21
--- OUTSIDE RECORDS SUMMARY | 2024-10-30 17:26 | XMS_ITS | Clinical Summary ---
Author Organization [facility] Care Team Providers Care Public Health Aides Teacher Name Role Phone Unavailable Primary Care Provider Unavailabl e Social History Tobacco Use Types Packs/Day Years Used Date Smoking Tobacco: Never Assessed Comments Unknown Sex and Gender Information Value Date Recorded Sex Assigned at Not on file Legal Sex Female 11:45 AM CDT Gender Identity Not on file Sexual Orientation Not on file Plan of Treatment Health Maintenance Due Date Last Done Comments DEXA Bone Density 1950 Hepatitis C Virus (HCV) Screening 1950 TdaP Immunization 1950 Colonoscopy 1995 Colorectal Cancer Screening 1995 Cologuard 2000 Immunochemical Fecal Occult Blood 2000 Mammogram 2000 Pneumococcal Immunization (5 0+ years) (1 of 1 - PCV) 2000 Zoster Immunization (1 of 2) 2000 Influenza Immunization (#1) 2024 SARS-COV-2 Immunization ( - 2023- season) 2024 Respiratory Syncytial Virus (RSV) Immunization (Adult) (1 - 1-dose 75+ series) 2025 Hepatitis B Immunization Aged Out No longer eligible based on patient's age to complete this topic Meningococcal Immunization (ACWY) Aged Out No longer eligible based on patient's age to complete this topic Rotavirus Immunization Aged Out No lo nger eligible based on patient's age to complete this topic
--- OUTSIDE RECORDS SUMMARY | 2024-10-30 17:26 | XMS_ITS | Data Portability ---
Author Organization [facility] Address [address] [facility] [place] [address] Assessment No assessment recorded. Plan of Treatment Reminders Order Date Submit Date Provider Last Modified By Organization Details Last Modified Time Details Appointments None recorded. Lab pap, IG 2014 015 NANY Not available 5 11:08:14 urinalysis, dipstick 2014 015 NANY In-Office Order, Internal Use Only DO Not Attach Compendium DO Not Attach Compendium, Do Not Delete/merge, [id number] 5 16:16:55 CBC w/ auto diff [address] (Lab), [address], [place], [address], 5 17:52:29 CMP, serum or plasma [address] (Lab), [address], [place], [address], 5 17:52:29 glycohemogl obin, total, blood [address] (Lab), [address], [place], [address], 5 17:52:29 coronary risk panel, serum [address] (Lab), [address], [place], [address], 5 17:52:29 Referral None recorded. Procedures None recorded. Surgeries None recorded. Imaging carotid duplex scan, bilateral 2014 015 NANY Not available 5 15:26:19 Medication Orders lisinopril 20 mg tablet [address] [facility] [address] [facility], [address] [place] [address], [id number], 5 16:16:54 glimepiride 4 mg tablet [address] [facility] [address] [facility], [address] [place] [address], [id number], 5 14:19:57 Actos 30 mg tablet [address] [facility], [address] [place] [address], [id number], 5 16:16:54 lovastatin 20 mg tablet [address] [facility], [address] [place] [address], [address], 5 16:16:55 furosemide 40 mg tablet [address] [facility], [address] [place] [address], [id number], 5 16:16:55 Patient TargetsNo targets recorded. Patient Instructions Encounter Date Encounter Id Patient Instructions Last Modified By Organization Details Last Modified Time 09/21/2014 [id number] annual screening mammogram; PAP every 2-3 yrs; Reinforced diabetes compliance; reviewed potential complications of uncontrolled diabetes [email or web address] Not available 09/21/2014 16:15:12 info provided re : [email or web address] Not available 09/21/2014 16:15:12 12/28/2014 [id number] followup blood sugars in next 3 weeks [email or web address] Not available 12/28/2014 15:58:11 Reason for Referral None Reported. Results Created Date Observation Date Name Description Value Unit Range Abnormal Flag Note LastModifiedBy Organization Detail LastModifiedTime 09/21/1909/21/2014 urina lysis , dipst ick Leukocytes Negati ve Not Available In-Office Order Internal Use Only DO Not Attach Compendium DO Not Attach Compendium, Do Not Delete/merge, 09/21/2014 16:16:55 09/21/1909/21/2014 urina lysis , dipst ick Nitrite negati ve Not Available In-Office Order Internal Use Only DO Not Attach Compendium DO Not Attach Compendium, Do Not Delete/merge, 09/21/2014 16:16:55 09/21/1909/21/2014 urina lysis , dipst ick Urobilinogen .2 Not Available In-Of fice Order Internal Use Only DO Not Attach Compendium DO Not Attach Compendium, Do Not Delete/merge, 09/21/2014 16:16:55 09/21/1909/21/2014 urina lysis , dipst ick Protein Negati ve Not Available In-Office Order Internal Use Only DO Not Attach Compendium DO Not Attach Compendium, Do Not Delete/merge, 09/21/2014 16:16:55 09/21/1909/21/2014 urina lysis , dipst ick pH 5.5 Not Available In-Office Order Internal Use Only DO Not Attach Compendium DO Not Attach Compendium, Do Not Delete/merge, 09/21/2014 16:16:55 09/21/1909/21/2014 urina lysis , dipst ick Blood Small Not Available In-Office Order Internal Use Only DO Not Attach Compendium DO Not Attach Compendium, Do Not Delete/merge, 09/21/2014 16:16:55 09/21/1909/21/2014 urina lysis , dipst ick Specific [place] 1.005 Not Available In-Off ice Order Internal Use Only DO Not Attach Compendium DO Not Attach Compendium, Do Not Delete/merge, 09/21/2014 16:16:55 09/21/1909/21/2014 urina lysis , dipst ick Ketone Negati ve Not Available In-Office Order Internal Use Only DO Not Attach Compendium DO Not Attach Compendium, Do Not Delete/merge, 09/21/2014 16:16:55 09/21/1909/21/2014 urina lysis , dipst ick Bilirubin Negati ve Not Available In-Office Order Internal Use Only DO Not Attach Compendium DO Not Attach Compendium, Do Not Delete/merge, 09/21/2014 16:16:55 09/21/1909/21/2014 urina lysis , dipst ick Glucose Negati ve Not Available In-Office Order Internal Use Only DO Not Attach Compendium DO Not Attach Compendium, Do Not Delete/merge, 09/21/2014 16:16:55 09/21/1909/21/2014 urina lysis , dipst ick Appearance Clear Not Available In-Offi ce Order Internal Use Only DO Not Attach Compendium DO Not Attach Compendium, Do Not Delete/merge, 09/21/2014 16:16:55 09/21/1909/21/2014 urina lysis , dipst ick Color Yellow Not Available In-Office Order Internal Use Only DO Not Attach Compendium DO Not Attach Compendium, Do Not Delete/merge, 09/21/2014 16:16:55 09/21/1909/26/2014 pap, IG diagnosis: COMMEN T NEGAT ALIZA FOR INTRA EPITH ELIAL LESIO N AND MALIG RACHAEL . Not Available [facility] ([facility]) [address], [place], [address], 09/26/2014 11:08:14 09/21/19 15 09/26/2014 pap, IG specimen adequacy: COMMEN T SATIS FACTO RY FOR EVALU ATION . ENDOC ERVIC AL AND/O R SQUAM OUS METAP LASTI C CELLS (ENDO CERVI CIRILO COMPO NENT) ARE PRESE NT. Not Available [facility] ([facility]) [address], [place], [address], 09/26/2014 11:08:14 09/21/19 15 09/26/2014 pap, IG clinician provided ICD9: MICHELLE Santos V76.2 ; SCREE ABEL FOR MALIG NANT NEOPL ASM OF THE CERVI X Not Available [facility] ([facility]) [address] [place], [address], 09/26/2014 11:08:14 09/21/19 15 09/26/2014 pap, IG performed by: MABEL ROBERTS SA (ASCP ) Not Available [facility] ([facility]) [address] [place], [address], 09/26/2014 11:08:14 09/21/19 15 09/26/2014 pap, IG . . Not Available [facility] ([facility]) [address] [place], [address], 09/26/2014 11:08:14 09/21/19 15 09/26/2014 pap, IG note: MICHELLE Santos THE PAP SMEAR IS A SCREE ABEL TEST DESIG BRAD TO AID IN THE DETEC TION OF LORI LIGNA NT AND MALIG NANT CONDI TIONS OF THE UTERI NE CERVI X. IT IS NOT A DIAGN OSTIC PROCE DURE AND SHOUL D NOT BE USED THE SOLE MEANS OF DETEC TING CERVI CIRILO CANCE R. BOTH FALSE -POSI TIVE AND FALSE -NEGA TIVE REPOR TS DO OCCUR . . Not Available [facility] ([facility]) [address] [place], [address], 09/26/2014 11:08:14 09/21/19 15 09/26/2014 pap, IG test methodology: MICHELLE Santos THIS LIQUI D BASED THINP REP(R ) PAP TEST WAS SCREE BRAD WITH THE USE OF AN IMAGE GUIDE Geeta Matta Not Available [facility] ([facility]) [address] [place], [address], 09/26/2014 11:08:14 01/12/20 15 01/11/2015 carot id duple x scan, bilat eral No observ ation record ed. [facility] [address], [place], [address], 01/13/2015 15:51:41 Result Notes None recorded. Problems Name Problem SNOMED Code Status Onset Date Resolution Date Notes Provider Name and Address Organization Details Recorded Time Carotid bruit 247884221 Active Arabella pimentel, [facility] 5 15:58:10 Type 2 diabetes mellitus 84716083 Active Arabella pimentel, [facility] 5 15:58:10 Problem Notes None recorded. Procedures Surgical History Date Name Laterality Status Provider Name and Address Organization Details Recorded Time Gastric Bypass completed Annie munoz LPN [facility] 09/21/2014 15:44:16 Dilation and Curettage completed Annie Mello LPN [facility] 09/21/2014 15:44:16 Appendectomy completed Annie Mello MEDICATION AIDE [facility] 09/21/2014 15:44:16 Imaging Results Imaging Date Name Status LastModified by Organiz ation Details LastModified Time 01/11/2015 carotid duplex scan, bilateral completed [email or web address] [facility] [address], [place], [address], 01/13/2015 15:51:41 Procedure Notes None recorded. Medical Equipment None Reported. Allergies Allergen ID Allergen Name Allergen Category Reaction Reaction Severity Criticality Documentation Date Start Date Code Code System Note Provider Name and Address Organization Details Recorded Time 63454 hydrocodo ne Not available Not available Not available Not available 09/21/2014 5489 RxNorm Not Available Not Available Not Available Medications Name Sig Start Date Stop Date Status Note LastModified by Organization Details LastModified Time furosemide 40 mg tablet TAKE ONE HALF- 1 TABLET (40 MG) BY ORAL ROUTE ONCE DAILY 2014 active Not Available Not Available Not Avai lable lisinopril 20 mg tablet TAKE ONE TABLET BY MOUTH ONCE DAILY 2014 active Not Available Not Available Not Avai lable glimepiride 4 mg tablet Take 1 tablet twice a day by oral route. 2014 active Not Available Not Available Not Avai lable ibuprofen 200 mg tablet Take 2 tablets every 12 hours by oral route. active Not Available Not Available No t Available lovastatin 20 mg tablet 2 tabs once daily 2014 active Not Available Not Available Not Avai lable pioglitazone 30 mg tablet Take 1 tablet every day by oral route. active Not Available Not Available No t Available Vitamin D3 25 mcg (1,000 unit) capsule Take 1 capsule every day by oral route. active Not Available Not Available No t Available Vitamin B12 ONE TABLET DAILY OTC active Not Available Not Available No t Available Vitals Date Recorded Body weight Respiratory rate Body temperature Body height Body mass index (BMI) Heart rate Systolic blood pressure Diastolic blood pressure Provider Name and Address Organization Details Last Updated DateTime 5 298751. 57849 g 18 /min 98.4 [degF] 160.02 cm 51.2 kg/m2 72 /min 142 mm[Hg] 80 mm[Hg] Annie Mello LPN [facility] 5 15:47:29 Date Recorded Body height Body mass index (BMI) Heart rate Respiratory rate Body weight Systolic blood pressure Diastolic blood pressure Provider Name and Address Organization Details Last Updated DateTime 5 160.02 cm 50.3 kg/m2 72 /min 18 /min 135862. 985115 g 152 mm[Hg] 74 mm[Hg] Arabella Gonzalez [facility] 5 13:57:53 Social History None recorded. Functional Status None recorded. Mental Status None recorded. Family History Relationship Description Onset Age of this Age Resolved Age Notes LastModified by Organization Details LastModified Time Mother Diabetes mellitus [email or web address] Not available 2014 14:09:38 Mother Heart disease [email or web address] Not available 2014 14:09:38 Father Malignant tumor of lung [email or web address] Not available 2014 14:09:38 Medical History Condition Response High Blood Pressure Y Asthma Y High Cholesterol Y Diabetes Y Gynecological HistoryNo gynecological history recorded. Obstetrics History GPAL:G 0 P 0 0 0 0 Past Encounters Encounter ID Performer Location Encounter Start Date Encounter Closed Date Diagnosis/Indication Diagnosis SNOMED-CT Code Diagnosis ICD10 Code Diagnosis Note [id number] Quin Dietrich RN [facility] (/) [address] [place] [address] 09/21/2014 14:57:00 09/21/2014 16:18:00 Gynecologic examination [id number] Type 2 barbie betes mellitus [id number] [facility] (/) [address] [place] [address] 12/28/2014 13:39:15 12/28/2014 15:58:42 Type 2 diabetes mellitus [id number] Hold glimepirid e for now; call with blood sugar readings in about 2-3 weeks. continue daily activity & diet as instructed Carotid bruit [id number] Patient will self schedule after shopping around for pricing discount Health Concerns Section Related Observation LastModified by Organization Detai ls LastModified Time None Recorded Concern Status LastModified by Organization Details LastModified Time None Recorded Advance Directives Directive None Recorded Payers Encounter Date Sequence Insurance Name Policy Number Policy Katz Covered Member ID Katz Member ID Guarantor Name 12/28/2014 SLIDING FEE SCHEDULE - DISCOUNT Ninfa Yue OBGyn Episode No OBEpisode recorded.
--- OUTSIDE RECORDS SUMMARY | 2024-10-30 17:26 | XMS_ITS | Patient Health Summary ---
Author Organization [facility] Address [address] [place] [address] Care Team Providers Care Feltmaker And Weigher Name Role Phone Oli Ventura MD Primary Care Provider [phone] Note from [facility],non-owned Affiliates and Associated Physician Practices is amultiple site organization consisting of ambulatory clinics and hospital sitesin [place], [place], [place] and [place]. This disclosure is being madepursuant to the Care Everywhere program and may not contain all information available regarding this patient. Last updated 18.[facility] Social History Tobacco Use Types Packs/Day Years Used Date Smoking Tobacco: Never Assessed Sex and Gender Information Value Date Recorded Sex Assigned at Not on file Gender Identity Not on file Sexual Orientation Not on file Procedures * DERMATOPATHOLOGY(Performed 12/06/2021) * DERMATOPATHOLOGY(Performed 12/06/2020) Results * DERMATOPATHOLOGY (12/06/2021 12:00 AM CDT) Only the most recent of2 resultswithin the time period is included. Case Report Dermatopathology Report Case: [id number] Authorizing Provider: Jacques Ren MD Collected: 12/06/2021 12:00 AM Ordering Location: [facility] Received: 12/07/2021 02:59 PM Pathologist: Marichuy Mello MD Specimen: Skin, left forearm 2 11:32 AM CDT DERMATOPATHOLOGY LABORATORY Final Diagnosis Specimen A. SKIN, left forearm: DERMATOFIBROMA (D23.9) 2 11:32 AM CDT DERMATOPATHOLOGY LABORATORY Clinical History DF vs. MM vs. Other. Path# [id number] 11:32 AM CDT DERMATOPATHOLOGY LABORATORY Gross Description Specimen A: Received is one formalin filled container labeled with the patient's name and designated left forearm. The specimen consists of a shave biopsy measuring [id number]. Jar 0. 11:32 AM CDT DERMATOPATHOLOGY LABORATORY Microscopic Description Specimen A. SKIN, left forearm: There is epidermal hyperplasia. Within the dermis, there are fibrohistiocytic cells in haphazard array among coarse collagen bundles. 11:32 AM CDT DERMATOPATHOLOGY LABORATORY Disclaimer An external and internal positive and negative controls are appropriate for the histochemical, immunohistochemical and immunofluorescence stain(s) in this case (if any), except where stated explicitly. The performance characteristics of the stain(s) cited in this report were developed and its performance characteristic determined by the Dermatopathology Laboratory at [facility], directed by Dr. Paxton Mcmanus. These tests need not be, and therefore are not, approved by the [place] Food and Drug Administration. The tests are used for clinical purposes. Billing Codes Specimen Charges Stain Charges 15715 1 2 11:32 AM CDT DERMATOPATHOLOGY LABORATORY Embedded Images 11:32 AM CDT DERMATOPATHOLOGY LABORATORY Pathology/Cytolog y TISSUE SPECIMEN FROM SKIN / Unknown 12/06/2021 12/07/2021 2:59 PM CDT Jacques Ren MD LAB - PATHOLOGY/CYTO LOGY ORDERABLES DERMATOPATHOLOGY LABORATORY [facility] - Department of Dermatology [facility] Specialized Medicine [address] [place] [address], [address] [phone] Care Teams Feltmaker And Weigher Relationship Specialty Start Date End Date Oli Ventura MD [address] [place] [address] [address] [place] [address] PCP - General 05/12/19
--- OUTSIDE RECORDS SUMMARY | 2024-10-30 17:26 | XMS_ITS | Referral Summary ---
Author Organization [facility] Address [address] [place] [address] Care Team Providers Care Refiner Operator Name Role Phone Oli Ventura MD Primary Care Provider Source Comments [facility],non-select specialty hospital Affiliates and Associated Physician Practices is amultiple site organization consisting of ambulatory clinics and hospital sitesin [place] and [place]. This disclosure is being madepursuant to the Care Everywhere program and may not contain all information available regarding this patient. Last updated 18.[facility] [employer] Social History Tobacco Use Types Packs/Day Years Used Date Smoking Tobacco: Never Assessed Sex and Gender Information Value Date Recorded Sex Assigned at Not on file Gender Identity Not on file Sexual Orientation Not on file Plan of Treatment Not on file Care Teams Refiner Operator Relationship Specialty Start Date End Date Oli Ventura MD [address] [place] [address] [address] [place] [address] PCP - General 05/12/19
--- OUTSIDE RECORDS SUMMARY | 2024-10-30 17:26 | XMS_ITS | Encounter Summary ---
Author Name [facility] [place] Organization [facility] [place] [facility] [place] Address [address] [place] [id number] Support Name Relationship Address Phone KG TURNER Next of Kin [address] [place], [place] [phone] Unavailable KG TURNER Emergency Contact [address] [place], [place] [phone] Unavailable Selected Encounter This section includes the information on record at [place] for the Encounter. Date/Time Encounter Type Encounter Description Reason Provider Source Aug 27, 2024 10:21 AM PT EDUCATION [facility] CAREGIVER SUPPORT PROGRAM ICD-10-CM Z63.6 Dependent relative needing care at home KENNETH HERNANDEZ E Encounter Template Text not used by [place] Assessments - Encounter Diagnoses This section includes the primary and secondary diagnoses documented for the Encounter. Date/Time Primary/Secondary Diagnosis Diagnosis Name Provider Source Aug 27, 2024 10:50 AM PRIMARY Dependent relative needing care at home KENNETH HERNANDEZ [facility] Encounter Notes: All associated encounter notes This section contains the clinical notes associated to the Encounter. Date/Time Encounter Note(s) Provider Source Aug 27, 2024 10:21 AM CAREGIVER CERTIFIC ATE: LOCAL TITLE: CSP PCAFC WELLNESS CONTACT CAREGIVER STANDARD TITLE: CAREGIVER CERTIFICATE DATE OF NOTE: AUG 27, 2024@10:21 ENTRY DATE: AUG 27, 2024@10:21:49 AUTHOR: KENNETH HERNANDEZ EXP COSIGNER: URGENCY: STATUS: COMPLETED Caregiver Support Program PCA[facility] Wellness Contact Caregiver This Family Caregiver is enrolled in VA's Program of Comprehensive Assistance for Family Caregivers (PCAFC). While enrolled in PCAFC, wellness contacts review the 's well-being, adequacy of personal care services being provided by the Family Caregiver(s), and the well-being of the Family Caregiver(s). Wellness contacts occur at a minimum of once every 120 days, and at least one visit must occur in the eligible Grace's home on an annual basis. Date of visit: Aug Length of visit: 40 minutes The Caregiver was identified using the following thacker identifiers: Full Name: ALBERTO TURNER Date of : [birth year] Full Address: [address] [place] [id number] Phone #: Email address: Patient Email - [email or web address] Is the above contact information in the electronic health record and the Caregiver Support Program IT system, correct? Yes Reason for contact: Routine (120-day contact) Method of contact: Video Telehealth Contact number for backup/emergency communication: Caregiver location during visit: Home [address] [place] [address] Caregiver confirms location is safe and private for visit. Telehealth Disclosure: Visit conducted by synchronous telehealth. Caregiver verbal consent obtained. Location/emergency number confirmed. Environment surveyed and all participants identified. Virtual conference room locked. CAREGIVER INFORMATION The caregiver is a: Primary Family Caregiver Caregiver is providing care to: Name: Kg Turner The caregiver lives with the Grace. CAREGIVER ASSESSMENT How has your physical/mental/emotional health been lately? Details: I think I am doing well . Shared that she went to assembly hand and things are good. Caregiver reports she is more emotional lately, finding herself crying more often. She feels that the situation with her impacts her moods and also spoke of strained relationship with her youngest son; he is distancing himself from Grace, wants to preserve memories of how his father once was. Caregiver shared of her disagreement with this but accepting of his decision. [facility] offered additional support in processing relationship issues and grieving her ; [facility] and MH therapy. Caregiver declined immediate referral, feels she will have difficulty keep scheduled appointments due to 's unpredictable schedule. She shared she will consider referrals in the future. Have you experienced any changes (falls, ER visits, hospitalizations) and/or any concerns? No What is most important to you about your health and overall well-being? Details: Being here for him . What goals or needs can we assist you with? Details: That I out live him . Caregiver shared that she doesn't want her children to have to take care of Grace. Discussed importance of keeping appointments and engaging in self-care. Caregiver feels with support from hospice and FILLING STATION LABORER/respite aide, she is able to have time to focus on her health and well-being and still care for . Are there training topics or resources that you would like to learn more about? Details: Caregiver denied needing additional training, feels well supported by hospice and receives great tips and guidance from that services. Do you have any legal or financial planning concerns? No Do you feel comfortable and safe in your home environment? Yes Do you have a personalized respite plan? Yes - Informal Details: Daughter is over almost daily to help with his care. She will also provide respite on weekends so Caregiver can go to buddhism - Formal Details: Home respite aide 5 days a week. SCREENING TOOLS Not clinically indicated. [facility] Staff provided information on the following resources and support: - Virtual Psychotherapy Program for Caregivers (VPPC) SUMMARY AND PLAN OF SUPPORT: Wellness Contact completed via [facility] Caregiver. Caregiver was actively engaged in visits, presented with pleasant mood, she was oriented and alert, no visible safety concerns noted. Caregiver reports she is in good health, denied having any significant changes and is seeing her providers regularly. Caregiver continues to share that she is becoming more emotional with old age . She finds herself in tears thinking about and current situation; identified this as grieving loss of who her once was. [facility] reviewed [facility] services/benefits available for added supports, Caregiver declined immediate referrals but will reach out in future. She shared she feels well supported by her daughter, aide and hospice at this time. Also having sense of relief now that 's behaviors have improved. Caregiver verbalized understanding of information and education provided. No imminent risks or safety concerns were identified during visit. [facility] reviewed Roles, Responsibilities, and Requirements and Revocation and Discharge with Caregiver. Caregiver voiced understanding. Diagnosis: Dependent relative needing care at home /es/ LADY Butterfield, WEB WORKER Clinical Semiconductor Equipment Technician Signed: 08/27/2024 15:41 KENNETH HERANNDEZ [facility]
--- OUTSIDE RECORDS SUMMARY | 2024-10-30 17:26 | XMS_ITS | Encounter Summary ---
Author Organization [facility] Address [address] [place] [place] [address] Care Team Providers Care Assembly Manager Name Role Phone Oli Ventura MD Primary Care Provider Encounter Details Date Type Department Care Team (Late st Contact Info) Description 12/08/2020 Lab Requisition [facility] DermPath Lab [address] [facility] [place] [id number] Jacques Ren MD [address] [address] Social History Tobacco Use Types [...] Priority Date/Time Associated Diagnosis Comments DERMATOPATHOLOGY Routine 12/06/2020 3:33 AM CDT documented in this encounter Results * DERMATOPATHOLOGY (12/06/2020 3:33 AM CDT) Case Report Dermatopathology Report Case: [id number] Authorizing Provider: Jacques Ren MD Collected: 12/06/2020 03:33 AM Ordering Location: [facility] Care DermPath Lab Received: 12/08/2020 06:11 AM Pathologist: Bridgette Mcmanus MD Specimen: Skin, left FH 2:21 PM CDT DERMATOPATHOLOGY LABORATORY Final Diagnosis Specimen A. SKIN, left FH: PIGMENTED SEBORRHEIC KERATOSIS, INFLAMED (L82.1) 2:21 PM CDT DERMATOPATHOLOGY LABORATORY Clinical History SK vs MM. Path# [id number]. 1 2:21 PM CDT DERMATOPATHOLOGY LABORATORY Gross Description Specimen A: Received is one formalin filled container labeled with the patient's name and designated left FH. The specimen consists of a shave biopsy measuring [id number]. Jar 0. 1 2:21 PM CDT DERMATOPATHOLOGY LABORATORY Microscopic Description Specimen A. SKIN, left FH: Sections show an acanthotic lesion composed of relatively uniform keratinocytes. There is hyperkeratosis and pseudo horn cysts. Pigment is present in the keratinocytes composing this tumor. 1 2:21 PM CDT DERMATOPATHOLOGY LABORATORY Disclaimer An external and internal positive and negative controls are appropriate for the histochemical, immunohistochemical and immunofluorescence stain(s) in this case (if any), except where stated explicitly. The performance characteristics of the stain(s) cited in this report were developed and its performance characteristic determined by the Dermatopathology Laboratory at [facility], directed by Dr. Paxton Mcmanus. These tests need not be, and therefore are not, approved by the [place] Food and Drug Administration. The tests are used for clinical purposes. Billing Codes Specimen Charges Stain Charges 66065 1 1 2:21 PM CDT DERMATOPATHOLOGY LABORATORY Embedded Images 1 2:21 PM CDT DERMATOPATHOLOGY LABORATORY Pathology/Cytolo gy TISSUE SPECIMEN FROM SKIN / Unknown 12/06/2020 3:33 AM CDT 12/08/2020 6:11 AM CDT Jacques Ren MD LAB - PATHOLOGY/CYTO LOGY ORDERABLES DERMATOPATHOLOGY LABORATORY [facility] - Department of Dermatology [facility] [address] [place] [address], [address] [phone] documented in this encounter Visit Diagnoses Not on filedocumented in this encounter Care Teams Assembly Manager Relationship Specialty Start Date End Date Oli Ventura MD [facility] [address] [place] [id number] PCP - General 05/12/19 documented as of this encounter
[2024-10-30 17:41] VITALS: BP 153/55; PULSE 74; RESP 18; TEMP 36.4; O2SAT 99
--- OUTSIDE RECORDS SUMMARY | 2024-10-30 20:06 | XMS_ITS ---
Author Name GELY MASSEY M.D. 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 2024-07-08 [...] least 60 minutes total time on enco [employer] [facility] [place] 07/08/2024 Chronic kidney disease, stag e 2 (mild)Type 2 diabetes mellitus with other specified complicationMixed hyperlipidemiaHypertensive chronic kidney disease w stg 1-4/unsp chr kdnyMorbid (severe) obesity due to excess caloriesAthscl heart disease of apache coronary artery w/o ang pctrsMild intermittent asthma, uncomplicatedObstructive sleep apnea (adult) (pediatric)Body mass index (BMI) 40.0-44.9, adult Home visit for evaluation and management of new patient requiring medically appropriate examination and moderate level of medical decision making. If using time, at least 60 minutes total time on [employer] [place] 07/08/2024 Essential (primary) hyperten jhonny Home visit for evaluation and management of new patient requiring medically appropriate examination and moderate level of medical decision making. If using time, at least 60 minutes total time on [employer] [place] 07/08/2024 Essential (primary) hyperten jhonny [...] Time Current Smoking Status Former smoker 2024-10-16 6 Sex Female History of Procedures Procedures Service Procedure code Service date Servicing provider Phone# Home visit for evaluation and management of new patient requiring medically appropriate examination and moderate level of medical decision making. If using time, at least 60 minutes total time on enco [id number] 2024-07-08 No Data Available No Data Availa [...] due to excess caloriesAtherosclerotic heart disease of apache coronary artery without angina pectorisType 2 diabetes [...]
--- OUTSIDE RECORDS SUMMARY | 2024-10-30 20:06 | XMS_ITS | Encounter Summary ---
Author Organization [facility] Address [address] [place] [address] Care Team Providers Care Hydro Pneumatic Tester Name Role Phone Oli Ventura MD Primary Care Provider Encounter Details Date Type Department Care Team (Late st Contact Info) Description 12/07/2021 Lab Requisition [facility] DermPath Lab [address] [facility] [place] [phone] Jacques Ren MD [address] [place] [address] Social History Tobacco Use Types [...] AM CDT) Case Report Dermatopathology Report Case: [id number] Authorizing Provider: Jacques Ren MD Collected: 12/06/2021 12:00 AM Ordering Location: [facility] Care DermPath Lab Received: 12/07/2021 02:59 PM Pathologist: Marichuy Mello MD Specimen: Skin, left forearm 11:32 AM CDT DERMATOPATHOLOGY LABORATORY Final Diagnosis Specimen A. SKIN, left forearm: DERMATOFIBROMA (D23.9) 11:32 AM CDT DERMATOPATHOLOGY LABORATORY Clinical History DF vs. MM vs. Other. Path# [id number] 11:32 AM CDT DERMATOPATHOLOGY LABORATORY Gross Description Specimen A: Received is one formalin filled container labeled with the patient's name and designated left forearm. The specimen consists of a shave biopsy measuring [id number]. Jar 0. 11:32 AM CDT DERMATOPATHOLOGY LABORATORY [...] characteristic determined by the Dermatopathology Laboratory at [facility], directed by Dr. Paxton Mcmanus. These tests need not be, and therefore are not, approved by the [place] Food and Drug Administration. The tests are used for clinical purposes. Billing Codes Specimen Charges Stain Charges 26292 1 2 11:32 AM CDT DERMATOPATHOLOGY LABORATORY Embedded Images 11:32 AM CDT DERMATOPATHOLOGY LABORATORY Pathology/Cytolog y TISSUE SPECIMEN FROM SKIN / Unknown 12/06/2021 12/07/2021 2:59 PM CDT Jacques Ren MD LAB - PATHOLOGY/CYTO LOGY ORDERABLES DERMATOPATHOLOGY LABORATORY [facility] - Department of Dermatology [facility] [address] [place] [address], [address] [phone] documented in this encounter Visit Diagnoses Not on filedocumented in this encounter Care Teams Hydro Pneumatic Tester Relationship Specialty Start Date End Date Oli Ventura MD [address] [facility] [address] [place] [address] PCP - General 05/12/19 documented as of this encounter
--- OUTSIDE RECORDS SUMMARY | 2024-10-30 20:06 | XMS_ITS | Clinical Summary ---
Author Organization [facility] Address [address] [place] [address] Care Team Providers Care Mining And Quarrying Machinery Repairer Name Role Phone Oli Ventura MD Primary Care Provider Source Comments [facility] Affiliates and Associated Physician Practices is amultiple site organization consisting of ambulatory clinics and hospital sitesin [place], [place], [place] and [place]. This disclosure is being madepursuant to the Care Everywhere program and may not contain all information available regarding this patient. Last updated 18.[facility] [employer] Social History Tobacco Use Types Packs/Day Years [...] age to complete this topic Care Teams Mining And Quarrying Machinery Repairer Relationship Specialty Start Date End Date Oli Ventura MD [address] [address] PCP - General 05/12/19
--- OUTSIDE RECORDS SUMMARY | 2024-10-30 20:06 | XMS_ITS | Encounter Summary ---
Author Organization [facility] Address [address] [facility] [place] [address] Care Team Providers Care Insurance Assistant Name Role Phone Oli Ventura MD Primary Care Provider [phone] Encounter Details Date Type Department Care Team (Late st Contact Info) Description 12/08/2020 Lab Requisition [facility] DermPath Lab [address] [facility] [place] [phone] Jacques Ren MD [address] [place] [address] Social History Tobacco Use Types [...] AM CDT) Case Report Dermatopathology Report Case: [id number] Authorizing Provider: Jacques Ren MD Collected: 12/06/2020 03:33 AM Ordering Location: [facility] Care DermPath Lab Received: 12/08/2020 06:11 AM Pathologist: Bridgette Mcmanus MD Specimen: Skin, left FH 2:21 PM CDT DERMATOPATHOLOGY LABORATORY Final Diagnosis Specimen A. SKIN, left FH: PIGMENTED SEBORRHEIC KERATOSIS, INFLAMED (L82.1) 2:21 PM CDT DERMATOPATHOLOGY LABORATORY Clinical History SK vs MM. Path# [id number]. 1 2:21 PM CDT DERMATOPATHOLOGY LABORATORY Gross Description Specimen A: Received is one formalin filled container labeled with the patient's name and designated left FH. The specimen consists of a shave biopsy measuring [id number]. Jar 0. 1 2:21 PM CDT DERMATOPATHOLOGY [...] characteristic determined by the Dermatopathology Laboratory at [facility], directed by Dr. Paxton Mcmanus. These tests need not be, and therefore are not, approved by the [place] Food and Drug Administration. The tests are used for clinical purposes. Billing Codes Specimen Charges Stain Charges 79743 1 1 2:21 PM CDT DERMATOPATHOLOGY LABORATORY Embedded Images 1 2:21 PM CDT DERMATOPATHOLOGY LABORATORY Pathology/Cytolo gy TISSUE SPECIMEN FROM SKIN / Unknown 12/06/2020 3:33 AM CDT 12/08/2020 6:11 AM CDT Jacques Ren MD LAB - PATHOLOGY/CYTO LOGY ORDERABLES DERMATOPATHOLOGY LABORATORY [facility] - Department of Dermatology [facility] [address] [place] [address], [address] [phone] documented in this encounter Visit Diagnoses Not on filedocumented in this encounter Care Teams Insurance Assistant Relationship Specialty Start Date End Date Oli Ventura MD [facility] [address] [place] [phone] PCP - General 05/12/19 documented as of this encounter
--- OUTSIDE RECORDS SUMMARY | 2024-10-30 20:06 | XMS_ITS | Continuity of Care Document ---
Author Name [facility] Organization [facility] Care Team Providers Care Geologic Technician Name Role Phone [facility] Unavailable Unavailable Problems Combined list of problems from Department of Defense and Veterans [facility] facilities. It does not include entries that were removed or entered in error. Problem Status Onset Date Problem Type Date of Resolution Comments Source Diagnosis: ICD-10-CM Z63.6 Dependent relative needing care at home Active Diagnosis [facility] Diagnosis: ICD-10-CM Z74.1 Need for assistance with personal care Active Diagnosis [facility] Encounters Combined list of: 1) Encounters from Department of Veterans Affairs facilities going backup to the last 18 months, not all [place] inpatient encounters are included; 2) Encounters from the Department of [facility] facilities going backup to 280 months. Location Location Details Encounter Type Encounter Number Reason For Visit Attending Provider ADM Date DC Date Status Disposition Source [facility] Outpatient Encounter [id number] SHA SELBY CY L 05/21 [facility] Outpatient Encounter [id number] 08/19 [facility] ASSMT/REAS SESSMENT [id number] Diagnos is: ICD-10- CM Z63.6 Depende nt relativ e needing care at home SHA SELBY CY L 08/22 [facility] Outpatient Encounter [id number] 12/22 [facility] CASE MANAGEMENT [id number] Diagnos is: ICD-10- CM Z74.1 Need for assista nce with persona l ESTHER Leahy 12/23 [facility] Outpatient Encounter [id number] 06/02 [facility] PT EDUCATION NOC INDIVID [id number] Diagnos is: ICD-10- CM Z63.6 Depende nt relativ e needing care at home MARY,CAR A A 06/03 [facility] Outpatient Encounter [id number] 06/03 [facility] PT EDUCATION NOC INDIVID [id number] Diagnos is: ICD-10- CM Z63.6 Depende nt relativ e needing care at home MARY,CAR A A 08/[address] [facility]
--- OUTSIDE RECORDS SUMMARY | 2024-10-30 20:06 | XMS_ITS | Referral Summary ---
Author Organization [facility] Address [address] [place] [address] Care Team Providers Care Immunopathologist Name Role Phone Oli Ventura MD Primary Care Provider Source Comments [facility] Affiliates and Associated Physician Practices is amultiple site organization consisting of ambulatory clinics and hospital sitesin [place], [place], [place] and [place]. This disclosure is being madepursuant to the Care Everywhere program and may not contain all information available regarding this patient. Last updated 18.[facility] [employer] Social History Tobacco Use Types Packs/Day Years Used Date Smoking Tobacco: Never Assessed Sex and Gender Information Value Date Recorded Sex Assigned at Not on file Gender Identity Not on file Sexual Orientation Not on file Plan of Treatment Not on file Care Teams Immunopathologist Relationship Specialty Start Date End Date Oli Ventura MD [address] [place] [address] [address] [place] [address] PCP - General 05/12/19
--- OUTSIDE RECORDS SUMMARY | 2024-10-30 20:06 | XMS_ITS | Patient Health Summary ---
Author Organization [facility] Address [address] [place] [address] Care Team Providers Care Production Broacher Name Role Phone Oli Ventura MD Primary Care Provider [phone] Note from [facility],non-owned Affiliates and Associated Physician Practices is amultiple site organization consisting of ambulatory clinics and hospital sitesin [place], [place], [place] and [place]. This disclosure is being madepursuant to the Care Everywhere program and may not contain all information available regarding this patient. Last updated 18.[facility] Social History Tobacco Use Types Packs/Day Years [...] is included. Case Report Dermatopathology Report Case: [id number] Authorizing Provider: Jacques Ren MD Collected: 12/06/2021 12:00 AM Ordering Location: [facility] DermPath Lab Received: 12/07/2021 02:59 PM Pathologist: Marichuy Mello MD Specimen: Skin, left forearm 2 11:32 AM CDT DERMATOPATHOLOGY LABORATORY Final Diagnosis Specimen A. SKIN, left forearm: DERMATOFIBROMA (D23.9) 2 11:32 AM CDT DERMATOPATHOLOGY LABORATORY Clinical History DF vs. MM vs. Other. Path# [id number] 11:32 AM CDT DERMATOPATHOLOGY LABORATORY Gross Description Specimen A: Received is one formalin filled container labeled with the patient's name and designated left forearm. The specimen consists of a shave biopsy measuring [id number]. Jar 0. 11:32 AM CDT DERMATOPATHOLOGY LABORATORY [...] characteristic determined by the Dermatopathology Laboratory at [facility], directed by Dr. Patxon Mcmanus. These tests need not be, and therefore are not, approved by the [place] Food and Drug Administration. The tests are used for clinical purposes. Billing Codes Specimen Charges Stain Charges 11748 1 2 11:32 AM CDT DERMATOPATHOLOGY LABORATORY Embedded Images 11:32 AM CDT DERMATOPATHOLOGY LABORATORY Pathology/Cytolog y TISSUE SPECIMEN FROM SKIN / Unknown 12/06/2021 12/07/2021 2:59 PM CDT Jacques Ren MD LAB - PATHOLOGY/CYTO LOGY ORDERABLES DERMATOPATHOLOGY LABORATORY [facility] Department of Dermatology [facility] Specialized Medicine [address] [place] [address], [address] [phone] Care Teams Production Broacher Relationship Specialty Start Date End Date Oli Ventura MD [address] [place] [address] [address] [place] [address] PCP - General 05/12/19
--- OUTSIDE RECORDS SUMMARY | 2024-10-30 20:07 | XMS_ITS | Referral Summary ---
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 Gender Identity Not on file Sexual Orientation Not on file Last Filed Vital Signs Vital Sign Reading Time Taken Comments Blood Pressure 120/80 09/04/2021 3:30 PM MARKETING COMMUNITY LIAISON Pulse 54 09/04/2021 3:30 PM MARKETING COMMUNITY LIAISON Temperature - - Respiratory Rate - - Oxygen Saturation 97% 09/04/2021 3:30 PM MARKETING COMMUNITY LIAISON Inhaled Oxygen Concentration - - Weight 103.9 kg (229 lb) 01/24/2016 2:41 PM CDT Height 160 cm (5' 3 ) 01/24/2016 2:41 PM CDT Body Mass Index 40.57 01/24/2016 2:41 PM CDT Plan of Treatment Not on file Insurance Care Teams Clinical Psychologist Private Practice Relationship Specialty Start Date End Date Oli Ventura MD [address] [place] [address] PCP - General Emergency Medicine 09/04/21
--- OUTSIDE RECORDS SUMMARY | 2024-10-30 20:07 | XMS_ITS | Clinical Summary ---
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 TRUCK DRIVER Gender Identity Not on file Sexual Orientation Not on file Obstetrics History Last Filed Vital Signs Vital Sign Reading Time Taken Comments Blood Pressure 120/80 09/04/2021 3:30 PM SPRINKLER TRUCK DRIVER Pulse 54 09/04/2021 3:30 PM SPRINKLER TRUCK DRIVER Temperature - - Respiratory Rate - - Oxygen Saturation 97% 09/04/2021 3:30 PM SPRINKLER TRUCK DRIVER Inhaled Oxygen Concentration - - Weight 103.9 kg (229 lb) 01/24/2016 2:41 PM CDT Height 160 cm (5' 3 ) 01/24/2016 2:41 PM CDT Body Mass Index 40.57 01/24/2016 2:41 PM CDT Plan of Treatment Not on file Insurance HEALTHCARE Care Teams Principal Scientist Relationship Specialty Start Date End Date Oli Ventura MD [address] [place] [id number] PCP - General Emergency Medicine 09/04/21
--- OUTSIDE RECORDS SUMMARY | 2024-10-30 20:07 | XMS_ITS | Clinical Summary ---
Author Organization [facility] Care Team Providers Care Prospecting Driller Helper Name Role Phone Unavailable Primary Care Provider [...]
--- NOTE | 2024-10-30 20:11 | ED_ITS ---
HPI - General Adult General Chief complaint: Fall Stated complaint: L arm, L knee and L hip pain after a fall today Time Seen by Provider: 10/30/24 19:47 History of Present Illness HPI narrative: This is a pleasant 74-year-old female presenting after ground level fall. She had been putting the shoes on of her demented when she stood up he sharp her. She fell to the ground landing on her left side. She is unsure if she hit her head. She was unable to get up and had to call EMS. Once they helped her a she was able to ambulate. She is currently complaining of pain to her left shoulder, left rib cage, suprapubic area, left hip, and left knee. Related Data Home Medications ?Medication ?Instructions ?Recorded ?Confirmed ?Last Taken ?Type acetaminophen 500 mg tablet 1,000 mg PO BID PRN Pain 07/20/19 07/13/24 11/21/22 History (Tylenol Extra Strength) cholecalciferol (vitamin D3) 25 2,000 unit PO DAILY 07/20/19 07/13/24 11/21/22 History mcg (1,000 unit) capsule (Vitamin D3) cyanocobalamin (vitamin B-12) 1,000 mcg PO DAILY 07/20/19 07/13/24 11/21/22 History 1,000 mcg tablet (Vitamin B-12) docusate sodium 100 mg capsule 100 mg PO BID 11/20/22 07/13/24 11/21/22 History magnesium 500 mg tablet 500 mg PO DAILY 11/20/22 07/13/24 11/21/22 History aspirin 81 mg tablet,delayed 81 mg PO DAILY 05/27/24 07/13/24 Unknown History release Allergies Allergy/AdvReac Type Severity Reaction Status Date / Time oxycodone Allergy Intermediate Nausea and Verified 10/30/24 17:44 Vomiting codeine Allergy Unknown Nausea and Verified 10/30/24 17:44 Vomiting metformin Allergy Unknown Nausea Verified 10/30/24 17:44 [facility] Past Medical History Medical History Abnormal EKG Abnormal uterine bleeding Actinic keratosis Acute cystitis without hematuria Acute pain of right knee Acute UTI Aortic stenosis Arthritis Asthma B12 deficiency Back pain at L4-L5 level Laughlin's palsy Bilateral carotid bruits Bronchitis Cardiac murmur, unspecified Chronic back pain Chronic cough Chronic pain of left ankle Chronic stasis dermatitis Constipation Contusion of right knee, initial encounter Dependent edema Diabetes Diastolic dysfunction Disorder of arteries and arterioles, unspecified Diverticulosis of large intestine without hemorrhage Dysuria Epigastric pain Fatigue Former tobacco use Heel pain, bilateral HTN (hypertension) HTN (hypertension), benign Hx of fall Injury of right knee Intractable headache LBBB (left bundle branch block) Loose body in knee, right knee Lumbar spondylosis Lumbosacral radiculopathy Menopausal and female climacteric states Metabolic alkalosis Morbid obesity Neoplasm of uncertain behavior of skin Nonrheumatic aortic valve insufficiency Obstruction of tear duct of both sides Other abnormal findings in urine Other chronic pain Other hyperlipidemia Pain in left foot Pain in left hip Pain of both hip joints Patient had no falls in past year Periorbital cellulitis of right eye Peripheral polyneuropathy Pneumonia due to 2019-nCoV Primary osteoarthritis involving multiple joints Primary osteoarthritis of both hips Primary osteoarthritis of left ankle Primary osteoarthritis of left knee Primary osteoarthritis of right knee Pulmonary fibrosis Right bundle branch block (RBBB) Screening for osteoporosis Senile calcific aortic valve sclerosis Shoulder pain, left Subacute frontal sinusitis Traumatic arthritis of ankle Type 2 diabetes mellitus URI with cough and congestion Urine frequency Yeast infection of the skin Surgical History Surgical History History of gastric bypass Family History Family History Mother Family history of heart disease in male family member before age 55 Family history of cardiovascular disease, Onset Age: 75 Family history of kidney disease Family history of arthritis Family history of diabetes mellitus in first degree relative Family history of renal failure, Onset Age: 75 Hypertension Diabetes mellitus Father Family history of malignant neoplasm, Onset Age: 62 Family history of arthritis Family history of lung cancer Grandparent Diabetes mellitus Other Family history of malignant neoplasm of brain Social History Social History Smoking packs per day: 1 Smoking cigarettes per day: 20.0 Years smoked: 6 Smoking pack-years: 6.00 Smoking status: Former smoker Tobacco type: cigarettes Smoking end date: 09/15/22 Alcohol intake: never Substance use: never Substance use type: does not use Current Housing: Decline to Answer Concerned About Future Housing: Decline to Answer Difficulty Paying Gas/Electric Bills: Decline to Answer Difficulty Paying for Meds: Decline to Answer Currently Unemployed: Decline to Answer Education: Decline to Answer Difficulty w/ Childcare or Family Care: Decline to Answer Living arrangements: with family Spiritual care concerns: No Exam 2 Narrative: APPEARANCE: No apparent distress. Head: atraumatic. EYES: EOMI, NOSE: Atraumatic NECK: Trachea midline RESPIRATORY: No increased rate of breathing clear to auscultation CARDIOVASCULAR: RRR, ABDOMINAL: Nondistended, soft nontender no guarding rebound MUSCULOSKELETAl: Head to toe trauma exam performed. Patient has tenderness over the tip of the left olecranon with no significant pain on range of motion. Some tenderness over the left rib cage without crepitus. Tenderness with the left knee with a small abrasion. No deformities, severe swelling functional deficits NEURO: Alert. Moving 4/4 extremities, able to ambulate SKIN:: Warm, dry. Normal color PSYCHIATRIC: Normal affect Course Vital Signs Vital signs: Vital Signs Temperature 97.6 F 10/30/24 17:41 Pulse Rate 74 10/30/24 17:41 Respiratory Rate 18 10/30/24 17:41 Blood Pressure 153/55 H 10/30/24 17:41 Pulse Oximetry 99 10/30/24 17:41 Oxygen Delivery Room Air 10/30/24 17:41 Temperature 97.6 F 10/30/24 17:41 Pulse Rate 77 10/30/24 22:12 Respiratory Rate 18 10/30/24 22:12 Blood Pressure 137/53 L 10/30/24 22:12 Pulse Oximetry 100 10/30/24 22:12 Oxygen Delivery Room Air 10/30/24 17:41 Medical Decision Making [facility] Narrative Medical decision making narrative: -Course: 74-year-old female after fall. Several areas of tenderness on exam but no significant traumatic injury. Trauma workup was negative for acute findings. UA was indicative infection. Patient be treated with antibiotics. Patient's pain was treated. she was discharged with return precautions. -DDX includes but is not limited to: Elbow fracture, rib fracture, UTI, knee fracture, pelvic fracture Vital Signs Vital Signs: Vital Signs Temperature 97.6 F 10/30/24 17:41 Pulse Rate 74 10/30/24 17:41 Respiratory Rate 18 10/30/24 17:41 Blood Pressure 153/55 H 10/30/24 17:41 Pulse Oximetry 99 02/15/25 17:41 Oxygen Delivery Room Air 10/30/24 17:41 Temperature 97.6 F 10/30/24 17:41 Pulse Rate 77 10/30/24 22:12 Respiratory Rate 18 10/30/24 22:12 Blood Pressure 137/53 L 10/30/24 22:12 Pulse Oximetry 100 10/30/24 22:12 Oxygen Delivery Room Air 10/30/24 17:41 Lab Data 10/30/24 20:16 10/30/24 20:16 Labs: Lab Results 10/30/24 10/30/24 Range/Units 20:16 21:59 WBC 7.5 (4.5-10.0) K/mm3 RBC 3.95 L (4.2-5.4) M/mm3 Hgb 12.4 (12.0-15.0) g/dL Hct 38.4 (37.0-47.0) % MCV 97.2 (80-100) fl MCH 31.4 (26-34) pg MCHC 32.3 (32-36) g/dl RDW 14.4 (11.5-14.5) % Plt Count 193 (150-375) k/mm3 MPV 10.0 (7.4-10.4) fl Immature Gran % (Auto) 0.4 (0-0.5) % Neut % (Auto) 60.4 (45.5-73.1) % Lymph % (Auto) 24.0 (18.3-44.2) % Tyrrell % (Auto) 12.4 H (2.6-8.5) % Eos % (Auto) 2.3 (0-4.4) % Baso % (Auto) 0.5 (0.2-1.2) % Lymph # (Auto) 1.79 (0.9-3.2) K/mm3 Tyrrell # (Auto) 0.9 H (0.1-0.6) K/mm3 Eos # (Auto) 0.2 (0-0.3) K/mm3 Baso # (Auto) 0.0 (0.0-0.1) K/mm3 Abs Immat Gran (auto) 0.03 (0.00-0.031) K/mm3 Absolute Neuts (auto) 4.5 (1.3-6.7) K/mm3 Absolute Nucleated RBC 0.000 (0.0-0.012) K/mm3 Nucleated RBC % 0.0 (0.0-0.2) % PT 14.8 H (11.1-14.7) Seconds INR 1.1 APTT 28.7 (22.3-36.8) Seconds Sodium 139 (137-145) mmol/L Potassium 4.2 (3.4-5.0) mmol/L Chloride 101 (98-107) mmol/L Carbon Dioxide 31 H (22-30) mmol/L Anion Gap 7 (4-12) mmol/L BUN 22 H (7-17) mg/dL Creatinine 0.80 (0.7-1.0) mg/dL Estim Creat Clear Calc 65 ml/min Estimated GFR > 60 (59 - ) Glucose 132 H (65-110) mg/dL Lactic Acid 0.8 (0.7-2.0) mmol/L Calcium 9.7 (8.4-10.2) mg/dL Magnesium 2.0 (1.6-2.3) mg/dL Total Bilirubin 0.6 (0.2-1.3) mg/dL AST 31 (14-36) U/L ALT 21 (6-35) U/L Alkaline Phosphatase 56 (38-126) U/L Total Protein 7.0 (6.3-8.2) g/dL Albumin 4.1 (3.5-5.1) g/dL Lipase 58 (23-300) U/L Urine Color Yellow (Yellow) Urine Appearance Clear (Clear) Urine pH 5.5 (5.0-9.0) Ur Specific Beaver 1.022 (1.001-1.035) Urine Protein Negative (Negative) mg/dL Urine Glucose (UA) Negative (Negative) mg/dL Urine Ketones Negative (Negative) mg/dL Ur Blood (Man) Negative (Negative) Urine Nitrate Positive H (Negative) Urine Bilirubin Negative (Negative) Urine Urobilinogen 0.2 (<2.0) mg/dL Leukocyte Esterase Rfl 2+ H (Negative) JEFF/UL Urine RBC 0-2 (0-2) /hpf Urine WBC 11-20 H (0-3) /hpf Ur Squamous Epith Cells Occasional (Few) /hpf Urine Bacteria 3+ H /hpf Urine Casts 0-2 Discharge Plan Discharge Clinical Impression: Fall, Elbow pain, Acute UTI Patient Disposition: Home, Self-Care Condition: Stable Instructions: Antibiotic Form, Fall Prevention for Older Adults (ED) Additional Instructions: You were seen in the emergency department after fall. Likely you have no serious traumatic injuries. Please take Tylenol for pain control. Please complete a course of Keflex for UTI. Please follow-up with your primary care physician as needed. Please return to the ED if you develop any new or worsening symptoms. Patient Language: Syriac Prescriptions: New acetaminophen 500 mg tablet 1,000 mg PO TID PRN (Reason: joseph) 7 Days Qty: 42 0RF cephalexin 500 mg capsule 500 mg PO Q12H Qty: 10 0RF No Action aspirin 81 mg tablet,delayed release (DR/EC) 81 mg PO DAILY alprazolam [Xanax] 0.5 mg tablet 0.5 mg PO BID PRN (Reason: anxiety) Qty: 30 0RF triamcinolone acetonide 0.05 % ointment 1 applic topical BID PRN (Reason: eczema) Qty: 430 0RF magnesium 500 mg Tablet 500 mg PO DAILY docusate sodium 100 mg Capsule 100 mg PO BID cyanocobalamin (vitamin B-12) [Vitamin B-12] 1,000 mcg Tablet 1,000 mcg PO DAILY acetaminophen [Tylenol Extra Strength] 500 mg Tablet 1,000 mg PO BID PRN (Reason: Pain) cholecalciferol (vitamin D3) [Vitamin D3] 1,000 unit Capsule 2,000 unit PO DAILY hydrocortisone [Anti-Itch (HC)] 1 % cream 1 applic topical DAILY 7 Days Qty: 28.35 0RF fluticasone propionate [Flonase Allergy Relief] 50 mcg/actuation spray,suspension 1 spray intranasal BID Qty: 16 2RF Rx Instructions: administer into each nostril pioglitazone 15 mg tablet See Rx Instructions .ROUTE .COMPLEX Qty: 90 3RF Dose Instruction: TAKE 1 TABLET BY MOUTH EVERY DAY Rx Instructions: TAKE 1 TABLET BY MOUTH EVERY DAY glimepiride 2 mg tablet See Rx Instructions .ROUTE .COMPLEX Qty: 90 2RF Dose Instruction: TAKE 1 TABLET BY MOUTH EVERY DAY Rx Instructions: TAKE 1 TABLET BY MOUTH EVERY DAY atorvastatin 20 mg tablet See Rx Instructions .ROUTE .COMPLEX Qty: 90 2RF Dose Instruction: TAKE 1 TABLET BY MOUTH EVERY DAY Rx Instructions: TAKE 1 TABLET BY MOUTH EVERY DAY furosemide 40 mg tablet See Rx Instructions .ROUTE .COMPLEX Qty: 90 2RF Dose Instruction: TAKE 1 TABLET BY MOUTH EVERY DAY Rx Instructions: TAKE 1 TABLET BY MOUTH EVERY DAY lisinopril 40 mg tablet See Rx Instructions .ROUTE .COMPLEX Qty: 90 2RF Dose Instruction: TAKE 1 TABLET BY MOUTH EVERY DAY Rx Instructions: TAKE 1 TABLET BY MOUTH EVERY DAY nystatin 100,000 unit/gram cream 1 applic topical TID Qty: 30 0RF Follow-up/Referrals: Oli Ventura MD [Primary Care Provider] -
[2024-10-30 20:22] LABS: Basophils Percent Auto 0.5 % (0.2-1.2); Eosinophils Absolute Auto 0.2 K/mm3 (0-0.3); Eosinophils Percent Auto 2.3 % (0-4.4); Hematocrit 38.4 % (37.0-47.0); Hemoglobin 12.4 g/dL (12.0-15.0); Immature Granulocyte Absolute 0.03 K/mm3 (0.00-0.031); Immature Granulocyte Percent A 0.4 % (0-0.5); Lymphocytes Absolute Auto 1.79 K/mm3 (0.9-3.2); Mean Corpuscular HGB Conc 32.3 g/dl (32-36); Mean Corpuscular Hemoglobin 31.4 pg (26-34); Mean Corpuscular Volume 97.2 fl (80-100); Monocytes Absolute Auto 0.9 K/mm3 (0.1-0.6); Monocytes Percent Auto 12.4 % (2.6-8.5); Neutrophils Absolute Auto 4.5 K/mm3 (1.3-6.7); Neutrophils Percent Auto 60.4 % (45.5-73.1); Platelet Count Result 193 k/mm3 (150-375); Red Blood Count 3.95 M/mm3 (4.2-5.4); Red Cell Distribution Width 14.4 % (11.5-14.5); White Blood Count 7.5 K/mm3 (4.5-10.0)
[2024-10-30 20:32] LABS: Alanine Aminotransferase 21 U/L (6-35); Albumin Level 4.1 g/dL (3.5-5.1); Alkaline Phosphatase 56 U/L (38-126); Anion Gap 7 mmol/L (4-12); Aspartate Amino Transferase 31 U/L (14-36); Bilirubin,Total 0.6 mg/dL (0.2-1.3); Blood Urea Nitrogen 22 mg/dL (7-17); Calcium 9.7 mg/dL (8.4-10.2); Carbon Dioxide 31 mmol/L (22-30); Chloride 101 mmol/L (98-107); Estimated CRCL calculation 65 ml/min; Estimated Glomerular Filt Rate > 60; Glucose 132 mg/dL (65-110); Lactic Acid Reflex 0.8 mmol/L (0.7-2.0); Lipase 58 U/L (23-300); Potassium 4.2 mmol/L (3.4-5.0); Sodium 139 mmol/L (137-145)
[2024-10-30 20:41] LABS: INR 1.1; Partial Thromboplastin Time 28.7 Seconds (22.3-36.8); Prothrombin Time 14.8 Seconds (11.1-14.7)
[2024-10-30 22:11] LABS: Add Urine Microscopic? YES; Appearance Urine Clear (Clear); Bacteria Urine 3+ /hpf; Bilirubin Urine Negative (Negative); Blood Urine Negative (Negative); Color Urine Yellow (Yellow); Glucose Urine UA Negative (Negative); Ketones Urine Negative (Negative); Leukocyte Esterase Ur 2+ LEU/UL (Negative); Nitrate Urine Positive (Negative); Non Pathogenic Casts 0-2; Protein Urine Negative (Negative); RBC Urine 0-2 /hpf (0-2); Specific Grav Ur 1.022 (1.001-1.035); Squamous Epithelial Cell Urine Occasional /hpf (Few); Urobilinogen Urine 0.2 mg/dL (<2.0); pH Urine 5.5 (5.0-9.0)
[2024-10-30 22:12] VITALS: BP 137/53; PULSE 77; RESP 18; O2SAT 100
[2024-10-30] MEDS: ACETAMINOPHEN 500 MG TABLET 1000 MG PO (22:12)
[2024-10-30] MEDS: CEPHALEXIN 500 MG CAPSULE PO (23:51)
== END 2024-10-30 23:58 | disposition home or self-care (01) ==
PROVIDERS: Emergency Provider Emergency Medicine; PCP Emergency Medicine
DX: S59.902A Unspecified injury of left elbow, initial encounter (principal); N39.0 Urinary tract infection, site not specified; S49.92XA Unspecified injury of left shoulder and upper arm, initial encounter; S79.912A Unspecified injury of left hip, initial encounter; S89.92XA Unspecified injury of left lower leg, initial encounter; I35.0 Nonrheumatic aortic (valve) stenosis; I11.9 Hypertensive heart disease without heart failure; I87.2 Venous insufficiency (chronic) (peripheral); J45.909 Unspecified asthma, uncomplicated; E53.8 Deficiency of other specified B group vitamins; E66.01 Morbid (severe) obesity due to excess calories; W18.30XA Fall on same level, unspecified, initial encounter; Z68.41 Body mass index [BMI] 40.0-44.9, adult; E11.42 Type 2 diabetes mellitus with diabetic polyneuropathy; E78.49 Other hyperlipidemia; M16.0 Bilateral primary osteoarthritis of hip; M19.072 Primary osteoarthritis, left ankle and foot; M17.0 Bilateral primary osteoarthritis of knee; Z98.84 Bariatric surgery status; Z87.891 Personal history of nicotine dependence; Z79.82 Long term (current) use of aspirin; Z79.899 Other long term (current) drug therapy; Z79.84 Long term (current) use of oral hypoglycemic drugs; M47.812 Spondylosis without myelopathy or radiculopathy, cervical region
CPT/HCPCS: 36415; 70450; 71260; 72125; 73030; 73080; 73502; 73562; 74177; 80053; 81001; 83605; 83690; 83735; 85025; 85610; 85730; 87086; 87186; 99284; A9270; Q9967

== ENCOUNTER 2024-12-01 13:33 | Outpatient (CLI) | payer OTHER, SELFPAY ==
--- NOTE | ~2024-12-01 | US_ITS ---
EXAMINATION: US carotid duplex BI DATE: 12/01/2024 14:14 INDICATION: Bilateral carotid artery stenosis. Vertigo. TECHNIQUE: Grayscale, color Doppler, and pulsed Doppler images of the cervical carotid arteries were obtained. The degree of vessel stenosis is placed in one of the following categories: normal, <50%, 5 0-69%, >=70% but less than near-occlusion, near-occlusion, or total occlusion. Note that percent sten osis relative to normal distal artery lumen diameter is indirectly measured from velocity measurement s as described by Camden, et al. Radiology 2003; 229:340-346. COMPARISON: None. FINDINGS: RIGHT: The right common carotid artery (CCA) peak systolic velocity (PSV) is 108 cm/s. The right internal ca rotid artery (ICA) PSV is 88 cm/s. The right ICA end-diastolic velocity (EDV) is 13 cm/s. The right I CA/CCA PSV ratio is 1.2. Grayscale and color Doppler images yield an estimate of <50% diameter reduct ion from plaque in the ICA. The external carotid artery (ECA) PSV is 139 cm/s. There is antegrade nikki w in the right vertebral artery. LEFT: The left CCA PSV is 72 cm/s. The left ICA PSV is 94 cm/s. The left ICA EDV is 25 cm/s. The left ICA/C CA PSV ratio is 1.3. Grayscale and color Doppler images yield an estimate of <50% diameter reduction from plaque in the ICA. The ECA PSV is 99 cm/s. There is antegrade flow in the left vertebral artery. IMPRESSION: 1. <50% stenosis in the right internal carotid artery. 2. <50% stenosis in the left internal carotid artery. Reviewed, dictated and finalized at location A.
--- OUTSIDE RECORDS SUMMARY | 2024-12-01 15:04 | XMS_ITS | Encounter Summary ---
Author Organization [facility] Address [address] [place] [address] Care Team Providers Care Artificial Breeding Technician Name Role Phone Oli Ventura MD Primary Care Provider Encounter Details Date Type Department Care Team (Late st Contact Info) Description 12/08/2020 Lab Requisition [facility] DermPath Lab [address], [facility] [place] [id number] Jacques Ren MD [address] [place] [address] Social History Tobacco Use Types [...] AM CDT) Case Report Dermatopathology Report Case: [id number] Authorizing Provider: Jacques Ren MD Collected: 12/06/2020 03:33 AM Ordering Location: [facility] Care DermPath Lab Received: 12/08/2020 06:11 AM Pathologist: Bridgette Mcmanus MD Specimen: Skin, left FH 2:21 PM CDT DERMATOPATHOLOGY LABORATORY Final Diagnosis Specimen A. SKIN, left FH: PIGMENTED SEBORRHEIC KERATOSIS, INFLAMED (L82.1) 2:21 PM CDT DERMATOPATHOLOGY LABORATORY Clinical History SK vs MM. Path# [id number]. 1 2:21 PM CDT DERMATOPATHOLOGY LABORATORY Gross Description Specimen A: Received is one formalin filled container labeled with the patient's name and designated left FH. The specimen consists of a shave biopsy measuring [id number]. Jar 0. 1 2:21 PM CDT DERMATOPATHOLOGY [...] characteristic determined by the Dermatopathology Laboratory at [facility], directed by Dr. Paxton Mcmansu. These tests need not be, and therefore are not, approved by the [place] Food and Drug Administration. The tests are used for clinical purposes. Billing Codes Specimen Charges Stain Charges 16666 1 1 2:21 PM CDT DERMATOPATHOLOGY LABORATORY Embedded Images 1 2:21 PM CDT DERMATOPATHOLOGY LABORATORY Pathology/Cytolo gy TISSUE SPECIMEN FROM SKIN / Unknown 12/06/2020 3:33 AM CDT 12/08/2020 6:11 AM CDT Jacques Ren MD LAB - PATHOLOGY/CYTO LOGY ORDERABLES DERMATOPATHOLOGY LABORATORY [facility] - Department of Dermatology [facility] Medicine [address] [place] [address], [address]rd Floor [address] [phone] documented in this encounter Visit Diagnoses Not on filedocumented in this encounter Care Teams Artificial Breeding Technician Relationship Specialty Start Date End Date Oli Ventura MD [facility] [address] [place] [id number] PCP - General 05/12/19 documented as of this encounter
--- OUTSIDE RECORDS SUMMARY | 2024-12-01 15:04 | XMS_ITS | Encounter Summary ---
Author Organization [facility] Address [address] [facility] [facility] [place] [address] Care Team Providers Care Network Technical Analyst Name Role Phone Oli Ventura MD Primary Care Provider Encounter Details Date Type Department Care Team (Late st Contact Info) Description 12/07/2021 Lab Requisition [facility] DermPath Lab [address] [facility] [place] [phone] Jacques Ren MD [address] [place] [address] Social History Tobacco Use Types [...] AM CDT) Case Report Dermatopathology Report Case: [id number] Authorizing Provider: Jacques Ren MD Collected: 12/06/2021 12:00 AM Ordering Location: [facility] Care DermPath Lab Received: 12/07/2021 02:59 PM Pathologist: Marichuy Mello MD Specimen: Skin, left forearm 11:32 AM CDT DERMATOPATHOLOGY LABORATORY Final Diagnosis Specimen A. SKIN, left forearm: DERMATOFIBROMA (D23.9) 11:32 AM CDT DERMATOPATHOLOGY LABORATORY Clinical History DF vs. MM vs. Other. Path# [id number] 11:32 AM CDT DERMATOPATHOLOGY LABORATORY Gross Description Specimen A: Received is one formalin filled container labeled with the patient's name and designated left forearm. The specimen consists of a shave biopsy measuring [id number]. Jar 0. 11:32 AM CDT DERMATOPATHOLOGY LABORATORY [...] characteristic determined by the Dermatopathology Laboratory at [facility], directed by Dr. Paxton Mcmanus. These tests need not be, and therefore are not, approved by the [place] Food and Drug Administration. The tests are used for clinical purposes. Billing Codes Specimen Charges Stain Charges 31860 1 2 11:32 AM CDT DERMATOPATHOLOGY LABORATORY Embedded Images 11:32 AM CDT DERMATOPATHOLOGY LABORATORY Pathology/Cytolog y TISSUE SPECIMEN FROM SKIN / Unknown 12/06/2021 12/07/2021 2:59 PM CDT Jacques Ren MD LAB - PATHOLOGY/CYTO LOGY ORDERABLES DERMATOPATHOLOGY LABORATORY [facility] - Department of Dermatology [facility] Specialized Medicine [address] [place] [address], [address] [phone] documented in this encounter Visit Diagnoses Not on filedocumented in this encounter Care Teams Network Technical Analyst Relationship Specialty Start Date End Date Oli Ventura MD [address] [facility] [place] [address] PCP - General 05/12/19 documented as of this encounter
--- OUTSIDE RECORDS SUMMARY | 2024-12-01 15:04 | XMS_ITS | Clinical Summary ---
Author Organization [facility] Address [address] [place] [address] Care Team Providers Care Capsule Machine Operator Name Role Phone Oli Ventura MD Primary Care Provider Source Comments [facility],non-owned Affiliates and Associated Physician Practices is amultiple site organization consisting of ambulatory clinics and hospital sitesin [place], [place], [place] and [place]. This disclosure is being madepursuant to the Care Everywhere program and may not contain all information available regarding this patient. Last updated 18.[facility] [employer] Social History Tobacco Use Types Packs/Day Years [...] SCREENING 1950 LIPID TESTING 1950 MAMMOGRAM 1950 MEDICARE AWV 12 MONTHS 1950 HEPATITIS C SCREENING 02/25/1968 DTAP/TDAP/TD VACCINES (1 - Tdap) 1969 PNEUMOCOCCAL VACCINE 50+ (1 of 1 - PCV) 2000 ZOSTER VACCINE (1 of 2) 2000 COVID-19 VACCINE (1 - 2023-2 5 season) 2024 INFLUENZA VACCINE [...] to complete this topic MENINGOCOCCAL (Group B) VACC INE SHARED DECISION-MAKING Aged Out No longer eligibl e based on patient's age to complete this topic MENINGOCOCCAL GROUPS A/C/Y/W VACCINE Aged Out No longer eligible b ased on patient's age to complete this topic Care Teams Capsule Machine Operator Relationship Specialty Start Date End Date Oli Ventura MD [address] [place], [place] [phone] PCP - General 05/12/19
--- OUTSIDE RECORDS SUMMARY | 2024-12-01 15:04 | XMS_ITS ---
Author Name GELY MASSEY M.D. 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 2024-07-08 [...] least 60 minutes total time on enco [facility] [place] 07/08/2024 Chronic kidney disease, stag e 2 (mild)Type 2 diabetes mellitus with other specified complicationMixed hyperlipidemiaHypertensive chronic kidney disease w stg 1-4/unsp chr kdnyMorbid (severe) obesity due to excess caloriesAthscl heart disease of jamul coronary artery w/o ang pctrsMild intermittent asthma, uncomplicatedObstructive sleep apnea (adult) (pediatric)Body mass index (BMI) 40.0-44.9, adult Home visit for evaluation and management of new patient requiring medically appropriate examination and moderate level of medical decision making. If using time, at least 60 minutes total time on Imon[facility] [place] 07/08/2024 Essential (primary) hyperten jhonny Home visit for evaluation and management of new patient requiring medically appropriate examination and moderate level of medical decision making. If using time, at least 60 minutes total time on [facility] [place] 07/08/2024 Essential (primary) hyperten jhonny [...] tive Time Current Smoking Status Former smoker 2024-11-13 9 Sex Female History of Procedures Procedures Service Procedure code Service date Servicing provider Phone# Home visit for evaluation and management of new patient requiring medically appropriate examination and moderate level of medical decision making. If using time, at least 60 minutes total time on enco [id number] 2024-07-08 No Data Available No Data Availa [...] due to excess caloriesAtherosclerotic heart disease of jamul coronary artery without angina pectorisType 2 diabetes [...]
--- OUTSIDE RECORDS SUMMARY | 2024-12-01 15:04 | XMS_ITS | Data Portability ---
Author Organization [facility] Address [address] [facility] [place] [address] Assessment No assessment recorded. Plan of Treatment Reminders Order Date Submit Date Provider Last Modified By Organization Details Last Modified Time Details Appointments None recorded. Lab pap, IG 2014 015 NANY Not available 5 11:08:14 urinalysis, dipstick 2014 015 NANY In-Office Order, Internal Use Only DO Not Attach Compendium DO Not Attach Compendium, Do Not Delete/merge, 987[address] 5 16:16:55 CBC w/ auto diff [address] (Lab), [address], [place], [address], 5 17:52:29 CMP, serum or plasma [address] (Lab), [address], [place], [address], 5 17:52:29 glycohemogl obin, total, blood [address] (Lab), [address], [place], [address], 5 17:52:29 coronary risk panel, serum [address] (Lab), [address], [place], [address], 5 17:52:29 Referral None recorded. Procedures None recorded. Surgeries None recorded. Imaging carotid duplex scan, bilateral 2014 015 NANY Not available 5 15:26:19 Medication Orders lisinopril 20 mg tablet [address] [facility], [address] [place] [address], [address], 5 16:16:54 glimepiride 4 mg tablet [address] [facility], [address] [place] [address], [address], 5 14:19:57 Actos 30 mg tablet [address] [facility], [address] [place] [address], [address], 5 16:16:54 lovastatin 20 mg tablet [address] [facility], [address] [place] [address], [address], 5 16:16:55 furosemide 40 mg tablet [address] [facility], [address] [place] [address], [address], 5 16:16:55 Patient TargetsNo targets recorded. Patient Instructions Encounter Date Encounter Id Patient Instructions Last Modified By Organization Details Last Modified Time 09/21/2014 [id number] annual screening mammogram; PAP every 2-3 yrs; Reinforced diabetes compliance; reviewed potential complications of uncontrolled diabetes Not available 09/21/2014 16:15:12 info provided re : [email or web address] Not available 09/21/2014 16:15:12 12/28/2014 [id number] followup blood sugars in next 3 weeks [email or web address] Not available 12/28/2014 15:58:11 Reason for Referral [...] 09/21/1909/21/2014 urina lysis , dipst ick Specific [place] 1.005 Not Available In-Off ice Order Internal [...] AND MALIG RACHAEL . Not Available [facility] ([facility]) [address] [facility], [place], [address], 09/26/2014 11:08:14 09/21/19 15 09/26/2014 pap, IG specimen adequacy: COMMEN T SATIS FACTO RY FOR EVALU ATION . ENDOC ERVIC AL AND/O R SQUAM OUS METAP LASTI C CELLS (ENDO CERVI CIRILO COMPO NENT) ARE PRESE NT. Not Available [facility] ([facility]) [address] [facility], [place], [address], 09/26/2014 11:08:14 09/21/19 15 09/26/2014 pap, IG clinician provided ICD9: MICHELLE Santos V76.2 ; SCREE ABEL FOR MALIG NANT NEOPL ASM OF THE CERVI X Not Available [facility] ([facility]) [address] [place], [address], 09/26/2014 11:08:14 09/21/19 15 09/26/2014 pap, IG performed by: MABEL ROBERTS SA (ASCP ) Not Available [facility] ([facility]) [address] [place], [address], 09/26/2014 11:08:14 09/21/19 15 09/26/2014 pap, IG . . Not Available [facility] ([facility]) [address] [place], [address], 09/26/2014 11:08:14 09/21/19 15 09/26/2014 pap, IG [...] DO OCCUR . . Not Available [facility] ([facility]) [address] [place], [address], 09/26/2014 11:08:14 09/21/19 15 09/26/2014 pap, IG test methodology: MICHELLE Santos THIS LIQUI D BASED THINP REP(R ) PAP TEST WAS SCREE BRAD WITH THE USE OF AN IMAGE GUIDE Geeta Matta Not Available [facility] ([facility]) [address] [place], [address], 09/26/2014 11:08:14 01/12/20 15 01/11/2015 carot id duple x scan, bilat eral No observ ation record ed. [email or web address] [facility] [address], [place], [address], 01/13/2015 15:51:41 Result Notes None recorded. Problems Name Problem SNOMED Code Status Onset Date Resolution Date Notes Provider Name and Address Organization Details Recorded Time Carotid bruit 273910293 Active Arabella pimentel, [facility] 5 15:58:10 Type 2 diabetes mellitus 67064965 Active Arabella pimentel, [facility] 5 15:58:10 Problem Notes None recorded. Procedures Surgical History Date Name Laterality Status Provider Name and Address Organization Details Recorded Time Gastric Bypass completed Annie munoz LPN [facility] 09/21/2014 15:44:16 Dilation and Curettage completed Annie Mello LPN [facility] 09/21/2014 15:44:16 Appendectomy completed Annie Mello JOURNEYMAN [employer] [facility] 09/21/2014 15:44:16 Imaging Results Imaging Date Name Status LastModified by Organiz ation Details LastModified Time 01/11/2015 carotid duplex scan, bilateral completed [email or web address] [facility] [address], [place], [address], 01/13/2015 15:51:41 Procedure Notes None recorded. Medical Equipment None Reported. Allergies Allergen ID Allergen Name Allergen Category Reaction Reaction Severity Criticality Documentation Date Start Date Code Code System Note Provider Name and Address Organization Details Recorded Time 91289 hydrocodo ne Not available Not available Not [...] Address Organization Details Last Updated DateTime 5 479457. 31024 g 18 /min 98.4 [degF] 160.02 cm 51.2 kg/m2 72 /min 142 mm[Hg] 80 mm[Hg] Annie eMllo LPN [facility] 5 15:47:29 Date Recorded Body height Body mass index (BMI) Heart rate Respiratory rate Body weight Systolic blood pressure Diastolic blood pressure Provider Name and Address Organization Details Last Updated DateTime 5 160.02 cm 50.3 kg/m2 72 /min 18 /min 913320. 928207 g 152 mm[Hg] 74 mm[Hg] Arabella Gonzalez [facility] 5 13:57:53 Social History None recorded. Functional Status None recorded. Mental Status None recorded. Family History Relationship Description Onset Age of this Age Resolved Age Notes LastModified by Organization Details LastModified Time Mother Diabetes mellitus [email or web address] Not available 2014 14:09:38 Mother Heart disease Not available 2014 14:09:38 Father Malignant tumor of lung [email or web address] Not available 2014 14:09:38 Medical History Condition Response Diabetes Y High Blood Pressure Y High Cholesterol Y Asthma Y Gynecological HistoryNo gynecological history recorded. Obstetrics History GPAL:G 0 P 0 0 0 0 Past Encounters Encounter ID Performer Location Encounter Start Date Encounter Closed Date Diagnosis/Indication Diagnosis SNOMED-CT Code Diagnosis ICD10 Code Diagnosis Note [id number] Quin Dietrich RN [facility] (/) [address] [place] [address] 09/21/2014 14:57:00 09/21/2014 16:18:00 Gynecologic examination 29292840 Type 2 barbie betes mellitus [id number] [facility] (/) [address] [place] [address] 12/28/2014 13:39:15 12/28/2014 15:58:42 Type 2 diabetes mellitus 54880875 Hold glimepirid e for now; call with blood sugar readings in about 2-3 weeks. continue daily activity & diet as instructed Carotid bruit [id number] Patient will self schedule after shopping around [...]
--- OUTSIDE RECORDS SUMMARY | 2024-12-01 15:04 | XMS_ITS | Referral Summary ---
Author Organization [facility] [address] Address [address] [place] [address] Care Team Providers Care Dampener Operator Name Role Phone Oli Ventura MD [...] on file Legal Sex Female 3:47 AM PALLIATIVE CARE NURSE PRACTITIONER Gender Identity Not on file Sexual Orientation Not on file Last Filed Vital Signs Vital Sign Reading Time Taken Comments Blood Pressure 120/80 09/04/2021 3:30 PM PALLIATIVE CARE NURSE PRACTITIONER Pulse 54 09/04/2021 3:30 PM PALLIATIVE CARE NURSE PRACTITIONER Temperature - - Respiratory Rate - - Oxygen Saturation 97% 09/04/2021 3:30 PM PALLIATIVE CARE NURSE PRACTITIONER Inhaled Oxygen Concentration - - Weight 103.9 kg (229 lb) 01/24/2016 2:41 PM CDT Height 160 cm (5' 3 ) 01/24/2016 2:41 PM CDT Body Mass Index 40.57 01/24/2016 2:41 PM CDT Plan of Treatment Not on file Insurance Care Teams Dampener Operator Relationship Specialty Start Date End Date Oli Ventura MD [address] [facility] [place] [address] PCP - General Emergency Medicine 09/04/21
--- OUTSIDE RECORDS SUMMARY | 2024-12-01 15:04 | XMS_ITS | Encounter Summary ---
Author Name [facility] [facility] [place] [facility] [place] Address [address] [place] [address] Support Name Relationship Address Phone KG TURNER Next of Kin [address] [place] [phone] Unavailable KG TURNER Emergency Contact [address] [place] [address] Unavailable Selected Encounter This section includes the information on record at [place] for the Encounter. Date/Time Encounter Type Encounter Description Reason Provider Source Aug 27, 2024 10:21 AM PT EDUCATION NOC [facility] CAREGIVER SUPPORT PROGRAM ICD-10-CM Z63.6 Dependent relative needing care at home KENNETH HERNANDEZ [facility] Encounter Template Text not used by [place] Assessments - Encounter Diagnoses This section includes the primary and secondary diagnoses documented for the Encounter. Date/Time Primary/Secondary Diagnosis Diagnosis Name Provider Source Aug 27, 2024 10:50 AM PRIMARY Dependent relative needing care at home KENNETH HERNANDEZ [facility] Plan of Treatment: Future Appointments (+ 6 months) and Future Tests (+/- 45 days) The Plan of Treatment section includes future care activities for the patient from all [place] treatmentfacilities. This section includes future appointments and future orders which are active, pending or scheduled. Future Appointments This section includes appointments that were scheduled to occur 6 months from the date of the Encounter, up to a maximum of 20 appointments. The data comes from all [place] treatment facilities. Appointment Date/Time Appointment Type Appointme nt Facility Name Dec 20, 2024 11:00 AM AMBULATORY - MEDICINE [facility] Encounter Notes: All associated encounter notes This section contains the clinical notes associated to the Encounter. Date/Time Encounter Note(s) Provider Source Aug 27, 2024 10:21 AM CAREGIVER CERTIFIC ATE: LOCAL TITLE: CSP PCAFC WELLNESS CONTACT CAREGIVER STANDARD TITLE: CAREGIVER CERTIFICATE DATE OF NOTE: AUG 27, 2024@10:21 ENTRY DATE: AUG 27, 2024@10:21:49 AUTHOR: KENNETH HERNANDEZ COSIGNER: URGENCY: STATUS: COMPLETED Caregiver Support Program [facility] Wellness Contact Caregiver This Family Caregiver is enrolled in [place]'s Program of Comprehensive Assistance for Family Caregivers (PCAFC). While enrolled in PCAFC, wellness contacts review the Eugene's well-being, adequacy of personal care services being provided by the Family Caregiver(s), and the well-being of the Family Caregiver(s). Wellness contacts occur at a minimum of once every 120 days, and at least one visit must occur in the eligible 's home on an annual basis. Date of visit: Aug Length of visit: 40 minutes The Caregiver was identified using the following thacker identifiers: Full Name: ALBERTO TURNER Date of : [birth year] Full Address: [address] [place] [address] Phone #: Email address: Patient Email - [email or web address] Is the above contact information in the electronic health record and the Caregiver Support Program IT system, correct? Yes Reason for contact: Routine (120-day contact) Method of contact: Video Telehealth Contact number for backup/emergency communication: Caregiver location during visit: Home [address] [place] [address] Caregiver confirms location is safe and private for visit. Telehealth Disclosure: Visit conducted by synchronous telehealth. Caregiver verbal consent obtained. Location/emergency number confirmed. Environment surveyed and all participants identified. Virtual conference room locked. CAREGIVER INFORMATION The caregiver is a: Primary Family Caregiver Caregiver is providing care to: Name: Kg Turner The caregiver lives with the . CAREGIVER ASSESSMENT How has your physical/mental/emotional health been lately? Details: I think I am doing well . Shared that she went to business office manager and things are good. Caregiver reports she is more emotional lately, finding herself crying more often. She feels that the situation with her impacts her moods and also spoke of strained relationship with her youngest son; he is distancing himself from Eugene, wants to preserve memories of how his father once was. Caregiver shared of her disagreement with this but accepting of his decision. [facility] offered additional support in processing relationship issues and grieving her ; [facility]. Caregiver declined immediate referral, feels she will have difficulty keep scheduled appointments due to Eugene's unpredictable schedule. She shared she will consider [...] children to have to take care of Eugene. Discussed importance of keeping appointments and engaging in self-care. Caregiver feels with support from hospice and [employer]/respite aide, she is able to have time [...] on weekends so Caregiver can go to jewish - Formal Details: Home respite aide 5 days a week. SCREENING TOOLS Not clinically indicated. [facility] Staff provided information on the following resources and support: - Virtual Psychotherapy Program for Caregivers (VPPC) SUMMARY AND PLAN OF SUPPORT: Wellness Contact completed via [facility] Caregiver. Caregiver was actively engaged in visits, [...] grieving loss of who her once was. [facility] reviewed [facility] services/benefits available for added supports, Caregiver declined immediate referrals but will reach out in future. She shared she feels well supported by her daughter, aide and hospice at this time. Also having sense of relief now that 's behaviors have improved. Caregiver verbalized understanding of information and education provided. No imminent risks or safety concerns were identified during visit. [facility] reviewed Roles, Responsibilities, and Requirements and Revocation and Discharge with Caregiver. Caregiver voiced understanding. Diagnosis: Dependent relative needing care at home /es/ LADY [place], TEAM DRIVER Clinical Pyrometer Operator Signed: 08/27/2024 15:41 KENNETH HERNANDEZ [facility]
--- OUTSIDE RECORDS SUMMARY | 2024-12-01 15:04 | XMS_ITS | Clinical Summary ---
Author Organization [facility] Care Team Providers Care Vending Machine Technician Name Role Phone Unavailable Primary Care Provider [...] Immunization (#1) 2024 SARS-COV-2 Immunization ( - season) 2024 Respiratory Syncytial Virus (RSV) Immunization [...]
--- OUTSIDE RECORDS SUMMARY | 2024-12-01 15:04 | XMS_ITS | Continuity of Care Document ---
Author Name [facility] Organization [facility] Care Team Providers Care Casing Mixer Name Role Phone [facility] Unavailable Unavailable Problems Combined list of problems from Department of Defense and Veterans [facility] facilities. It does not include entries that were removed or entered in error. Problem Status Onset Date Problem Type Date of Resolution Comments Source Diagnosis: ICD-10-CM Z63.6 Dependent relative needing care at home Active Diagnosis [facility] Diagnosis: ICD-10-CM Z74.1 Need for assistance with personal care Active Diagnosis [facility] Encounters Combined list of: 1) Encounters from Department of Veterans Affairs facilities going backup to the last 18 months, not all VA inpatient encounters are included; 2) Encounters from the Department of [facility] facilities going backup to 280 months. Location Location Details Encounter Type Encounter Number Reason For Visit Attending Provider ADM Date DC Date Status Disposition Source [facility] Outpatient Encounter [id number] 08/19 [facility] ASSMT/REAS SESSMENT [id number] Diagnos is: ICD-10- CM Z63.6 Depende nt relativ e needing care at home SHA SELBY 08/22 [facility] Outpatient Encounter [id number] 12/22 [facility] CASE MANAGEMENT [id number] Diagnos is: ICD-10- CM Z74.1 Need for assista nce with persona l ESTHER Leahy 12/23 [facility] Outpatient Encounter [id number] 06/02 [facility] PT EDUCATION NOC INDIVID [id number] Diagnos is: ICD-10- CM Z63.6 Depende nt relativ e needing care at home MARY,CAR A A 06/03 [facility] Outpatient Encounter [id number] 06/03 [facility] PT EDUCATION NOC INDIVID [id number] Diagnos is: ICD-10- CM Z63.6 Depende nt relativ e needing care at home MARYCAR A A 08/27 [facility] N Plan of Care List of future care activities from Department of [facility] Affairs facilities. Additional future care activities may be listed in the Assessment and Plan section. Date/Time Care Activity Care Activity Detail Facili ty 12/20/2024 AMBULATORY - MEDICINE AMBULATORY - MEDICI NE [facility]
--- OUTSIDE RECORDS SUMMARY | 2024-12-01 15:04 | XMS_ITS | Clinical Summary ---
Author Organization [facility] [address] Address [address] [place] [address] Care Team Providers Care Manager Facility Name Role Phone Oli Ventura MD Primary [...] on file Legal Sex Female 3:47 AM PLATINUM SMITH Gender Identity Not on file Sexual Orientation Not on file Obstetrics History Last Filed Vital Signs Vital Sign Reading Time Taken Comments Blood Pressure 120/80 09/04/2021 3:30 PM PLATINUM SMITH Pulse 54 09/04/2021 3:30 PM PLATINUM SMITH Temperature - - Respiratory Rate - - Oxygen Saturation 97% 09/04/2021 3:30 PM PLATINUM SMITH Inhaled Oxygen Concentration - - Weight 103.9 kg (229 lb) 01/24/2016 2:41 PM CDT Height 160 cm (5' 3 ) 01/24/2016 2:41 PM CDT Body Mass Index 40.57 01/24/2016 2:41 PM CDT Plan of Treatment Not on file Insurance HEALTHCARE Care Teams Manager Facility Relationship Specialty Start Date End Date Oli Ventura MD [address] [place] [phone] PCP - General Emergency Medicine 09/04/21
== END 2024-12-01 13:34 | disposition home or self-care (01) ==
PROVIDERS: PCP Emergency Medicine; Visit Provider Emergency Medicine
DX: I65.23 Occlusion and stenosis of bilateral carotid arteries (principal); I35.0 Nonrheumatic aortic (valve) stenosis
CPT/HCPCS: 93880

== ENCOUNTER 2025-02-15 12:33 | Outpatient (CLI) | payer OTHER, SELFPAY ==
--- OUTSIDE RECORDS SUMMARY | 2025-02-15 12:39 | XMS_ITS | Data Portability ---
[facility] [address] [place] [id number] Assessment No assessment recorded. Plan of Treatment Reminders Order Date Submit Date Provider Last Modified By Organization Details Last Modified Time Details Appointments None recorded. Lab pap, IG 2014 015 NANY Not available 5 11:08:14 urinalysis, dipstick 2014 015 NANY In-Office Order, Internal Use Only DO Not Attach Compendium DO Not Attach Compendium, Do Not Delete/merge, 90[address] 5 16:16:55 CBC w/ auto diff [address] (Lab), [address], [place], [id number], 5 17:52:29 CMP, serum or plasma [address] (Lab), [address], [place], [id number], 5 17:52:29 glycohemogl obin, total, blood [address] (Lab), [address], [place], [address], 5 17:52:29 coronary risk panel, serum [address] (Lab), [address], [place], [address], 5 17:52:29 Referral None recorded. Procedures None recorded. Surgeries None recorded. Imaging carotid duplex scan, bilateral 2014 015 NANY Not available 5 15:26:19 Medication Orders lisinopril 20 mg tablet [address] [facility], [address] [place] [address], [address], 5 16:16:54 glimepiride 4 mg tablet [address] [facility], [address] [place] [address], [address], 5 14:19:57 Actos 30 mg tablet [address] [facility], [address] [place] [address], [address], 5 16:16:54 lovastatin 20 mg tablet [address] [facility], [address] [place] [address], [address], 5 16:16:55 furosemide 40 mg tablet [address] [facility], [address] [place] [address], [address], 5 16:16:55 Patient TargetsNo targets recorded. Patient Instructions Encounter Date Encounter Id Patient Instructions Last Modified By Organization Details Last Modified Time 09/21/2014 [id number] annual screening mammogram; PAP every 2-3 yrs; Reinforced diabetes compliance; reviewed potential complications of uncontrolled diabetes [email or web address] Not available 09/21/2014 16:15:12 info provided re : [email or web address] Not available 09/21/2014 16:15:12 12/28/2014 [id number] followup blood sugars in next 3 weeks [email or web address] Not available 12/28/2014 15:58:11 Reason for Referral [...] 09/21/1909/21/2014 urina lysis , dipst ick Specific [place]inson 1.005 Not Available In-Off ice Order Internal [...] AND MALIG RACHAEL . Not Available [facility] ([facility]) [address] [facility], [place], [address], 09/26/2014 11:08:14 09/21/19 15 09/26/2014 pap, IG specimen adequacy: COMMEN T SATIS FACTO RY FOR EVALU ATION . ENDOC ERVIC AL AND/O R SQUAM OUS METAP LASTI C CELLS (ENDO CERVI CIRILO COMPO NENT) ARE PRESE NT. Not Available [facility] ([facility]) [address] [facility], [place], [address], 09/26/2014 11:08:14 09/21/19 15 09/26/2014 pap, IG clinician provided ICD9: MICHELLE Santos V76.2 ; SCREE ABEL FOR MALIG NANT NEOPL ASM OF THE CERVI X Not Available [facility] ([facility]) [address] [place], [address], 09/26/2014 11:08:14 09/21/19 15 09/26/2014 pap, IG performed by: MABEL ROBERTS SA (ASCP ) Not Available [facility] ([facility]) [address] [place], [address], 09/26/2014 11:08:14 09/21/19 15 09/26/2014 pap, IG . . Not Available [facility] ([facility]) [address] [place], [address], 09/26/2014 11:08:14 09/21/19 15 09/26/2014 pap, IG [...] DO OCCUR . . Not Available [facility] ([facility]) [address] [place], [address], 09/26/2014 11:08:14 09/21/19 15 09/26/2014 pap, IG test methodology: MICHELLE Santos THIS LIQUI D BASED THINP REP(R ) PAP TEST WAS SCREE BRAD WITH THE USE OF AN IMAGE GUIDE Geeta Matta Not Available [facility] ([facility]) [address] [place], [address], 09/26/2014 11:08:14 01/12/20 15 01/11/2015 carot id duple x scan, bilat eral No observ ation record ed. [facility] [address], [place], [address], 01/13/2015 15:51:41 Result Notes None recorded. Problems Name Problem SNOMED Code Status Onset Date Resolution Date Notes Provider Name and Address Organization Details Recorded Time Carotid bruit [id number] Active Arabella pimentel [facility] 5 15:58:10 Type 2 diabetes mellitus 26429612 Active Arabella pimentel [facility] 5 15:58:10 Problem Notes None recorded. Procedures Surgical History Date Name Laterality Status Provider Name and Address Organization Details Recorded Time Gastric Bypass completed Annie munoz LPN [facility] 09/21/2014 15:44:16 Dilation and Curettage completed Annie Mello LPN [facility] 09/21/2014 15:44:16 Appendectomy completed Annie Mello LPN [facility] 09/21/2014 15:44:16 Imaging Results None recorded. Procedure Notes None recorded. Medical Equipment None Reported. Allergies Allergen ID Allergen Name Allergen Category Reaction Reaction Severity Criticality Documentation Date Start Date Code Code System Note Provider Name and Address Organization Details Recorded Time 12761 hydrocodo ne Not available Not available Not available Not available 09/21/2014 5489 RxNorm KAE Stanley [facility] 5 15:42:06 Medications Name Sig Start Date Stop Date [...] Address Organization Details Last Updated DateTime 5 227909. 48714 g 18 /min 98.4 [degF] 160.02 cm 51.2 kg/m2 72 /min 142 mm[Hg] 80 mm[Hg] Annie Mello LPN [facility] 5 15:47:29 Date Recorded Body height Body mass index (BMI) Heart rate Respiratory rate Body weight Systolic blood pressure Diastolic blood pressure Provider Name and Address Organization Details Last Updated DateTime 5 160.02 cm 50.3 kg/m2 72 /min 18 /min 789696. 631153 g 152 mm[Hg] 74 mm[Hg] Arabella Gonzalez [facility] 5 13:57:53 Social History None recorded. Functional Status None recorded. Mental Status None recorded. Family History Relationship Description Onset Age of this Age Resolved Age Notes LastModified by Organization Details LastModified Time Mother Diabetes mellitus Not available 2014 14:09:38 Mother Heart disease [email or web address] Not available 2014 14:09:38 Father Malignant neoplasm of lung [email or web address] Not available 2014 14:09:38 Medical History Condition Response Diabetes Y High Blood Pressure Y Asthma Y High Cholesterol Y Gynecological HistoryNo gynecological history recorded. Obstetrics History GPAL:G 0 P 0 0 0 0 Past Encounters Encounter ID Performer Location Encounter Start Date Encounter Closed Date Diagnosis/Indication Diagnosis SNOMED-CT Code Diagnosis ICD10 Code Diagnosis Note [id number] Derek Ruiz MD [facility] (/) [address] [place] [address] 09/21/2014 14:57:00 09/21/2014 16:18:00 Gynecologic examination [id number] Type 2 barbie betes mellitus [id number] Derek Ruiz MD [facility] (/) [address] [place] [id number] 12/28/2014 13:39:15 12/28/2014 15:58:42 Type 2 diabetes mellitus 49894007 Hold glimepirid e for now; call with blood sugar readings in about 2-3 weeks. continue daily activity & diet as instructed Carotid bruit [id number] Patient will self schedule after shopping around [...] 12/28/2014 SLIDING FEE SCHEDULE - DISCOUNT Ninfa Turner OBGyn Episode No OBEpisode recorded.
--- OUTSIDE RECORDS SUMMARY | 2025-02-15 12:40 | XMS_ITS | Encounter Summary ---
Author Organization [facility] Address [address] [place] [address] Care Team Providers Care Head Waitress Name Role Phone Oli Ventura MD Primary Care Provider [phone] Encounter Details Date Type Department Care Team (Late st Contact Info) Description 12/08/2020 Lab Requisition [facility] DermPath Lab [address] [place] [address] Jacques Ren MD [address] [address] Social History Tobacco Use Types Packs/Day Years Used Date Smoking Tobacco: Never Assessed Comments Unknown Sex and Gender Information Value Date Recorded Sex Assigned at Not on file Legal Sex Female 4:12 AM CDT Gender Identity Not on file Sexual Orientation Not on file documented as of this encounter Plan of Treatment Not on file documented as of this encounter Procedures Procedure Name Priority Date/Time Associated Diagnosis Comments DERMATOPATHOLOGY Routine 12/06/2020 3:33 AM CDT documented in this encounter Results * DERMATOPATHOLOGY (12/06/2020 3:33 AM CDT) Case Report Dermatopathology Report Case: [id number] Authorizing Provider: Jacques Ren MD Collected: 12/06/2020 03:33 AM Ordering Location: [facility] DermPath Lab Received: 12/08/2020 06:11 AM Pathologist: Bridgette Mcmanus MD Specimen: Skin, left FH 1 2:21 PM CDT DERMATOPATHOLOGY LABORATORY Final Diagnosis Specimen A. SKIN, left FH: PIGMENTED SEBORRHEIC KERATOSIS, INFLAMED (L82.1) 1 2:21 PM CDT DERMATOPATHOLOGY LABORATORY at 1421 CDT Clinical History SK vs MM. Path# [id number]. 1 2:21 PM CDT DERMATOPATHOLOGY LABORATORY Gross Description Specimen A: Received is one formalin filled container labeled with the patient's name and designated left FH. The specimen consists of a shave biopsy measuring [id number]. Jar 0. 1 2:21 PM CDT DERMATOPATHOLOGY [...] characteristic determined by the Dermatopathology Laboratory at [facility], directed by Dr. Paxton Mcmanus. These tests need not be, and therefore are not, approved by the [place] Food and Drug Administration. The tests are used for clinical purposes. Billing Codes Specimen Charges Stain Charges 43942 1 1 2:21 PM CDT DERMATOPATHOLOGY LABORATORY Embedded Images 2:21 PM CDT DERMATOPATHOLOGY LABORATORY Pathology/Cytolo gy TISSUE SPECIMEN FROM SKIN / Unknown 12/06/2020 3:33 AM CDT 12/08/2020 6:11 AM CDT us Jacques Ren MD LAB - PATHOLOGY/CYTOLOGY ORDER WAQAR Final Result DERMATOPATHOLOGY LABORATORY [facility] - Department of Dermatology [address], [address] [phone] documented in this encounter Visit Diagnoses Not on filedocumented in this encounter Care Teams Head Waitress Relationship Specialty Start Date End Date Oli Ventura MD [address] [facility] [address] [address] PCP - General 05/12/19 documented as of this encounter
--- OUTSIDE RECORDS SUMMARY | 2025-02-15 12:40 | XMS_ITS | Clinical Summary ---
Author Organization [facility] [address] Address [address] [place] [address] Care Team Providers Care Chief Information Officer Name Role Phone Oli Ventura MD Primary [...] on file Legal Sex Female 3:47 AM LIQUIFIED NATURAL GAS TECHNICIAN Gender Identity Not on file Sexual Orientation Not on file Obstetrics History Last Filed Vital Signs Vital Sign Reading Time Taken Comments Blood Pressure 120/80 09/04/2021 3:30 PM LIQUIFIED NATURAL GAS TECHNICIAN Pulse 54 09/04/2021 3:30 PM LIQUIFIED NATURAL GAS TECHNICIAN Temperature - - Respiratory Rate - - Oxygen Saturation 97% 09/04/2021 3:30 PM LIQUIFIED NATURAL GAS TECHNICIAN Inhaled Oxygen Concentration - - Weight 103.9 kg (229 lb) 01/24/2016 2:41 PM CDT Height 160 cm (5' 3) 01/24/2016 2:41 PM CDT Body Mass Index 40.57 01/24/2016 2:41 PM CDT Plan of Treatment Not on file Insurance HEALTHCARE Care Teams Chief Information Officer Relationship Specialty Start Date End Date Oli Ventura MD [address] [place] [phone] PCP - General Emergency Medicine 09/04/21
--- OUTSIDE RECORDS SUMMARY | 2025-02-15 12:40 | XMS_ITS | Clinical Summary ---
Author Organization [facility] Care Team Providers Care Data Conversion Operator Name Role Phone Unavailable Primary Care Provider [...]
--- OUTSIDE RECORDS SUMMARY | 2025-02-15 12:40 | XMS_ITS | Continuity of Care Document ---
Author Name [facility] Organization [facility] Care Team Providers Care Drupal Php Developer Name Role Phone [facility] Unavailable Unavailable Problems Combined list of problems from Department of Defense and [facility] facilities. It does not include entries that were removed or entered in error. Problem Status Onset Date Problem Type Date of Resolution Comments Source Diagnosis: ICD-10-CM Z63.6 Dependent relative needing care at home Active Diagnosis [facility] Diagnosis: ICD-10-CM Z74.1 Need for assistance with personal care Active Diagnosis [facility] Encounters Combined list of: 1) Encounters from Department of Veterans Affairs facilities going backup to the last 18 months, not all VA inpatient encounters are included; 2) Encounters from the Department of [facility] facilities going backup to 280 months. Location Location Details Encounter Type Encounter Number Reason For Visit Attending Provider ADM Date DC Date Status Disposition Source [facility] Outpatient Encounter [id number] 08/19 [facility] ASSMT/REAS SESSMENT [id number] Diagnos is: ICD-10- CM Z63.6 Depende nt relativ e needing care at home SHA SELBY 08/22 [facility] Outpatient Encounter [id number] 12/22 [facility] CASE MANAGEMENT [id number] Diagnos is: ICD-10- CM Z74.1 Need for assista nce with persona l ESTHER Leahy 12/23 [facility] Outpatient Encounter [id number] 06/02 [facility] PT EDUCATION NOC INDIVID [id number] Diagnos is: ICD-10- CM Z63.6 Depende nt relativ e needing care at home MARY,CAR A A 06/03 [facility] Outpatient Encounter [id number] 06/03 [facility] PT EDUCATION NOC INDIVID [id number] Diagnos is: ICD-10- CM Z63.6 Depende nt relativ e needing care at home MARY,CAR A A 08/27 [facility] PT EDUCATION NOC INDIVID [id number] Diagnos is: ICD-10- CM Z63.6 Depende nt relativ e needing care at home MARY,CAR A A 12/20 [facility] N
--- OUTSIDE RECORDS SUMMARY | 2025-02-15 12:40 | XMS_ITS | Clinical Summary ---
Author Organization [facility] Address [address] [facility] [place] [address] Care Team Providers Care Dressmaker Helper Name Role Phone Oli Ventura MD Primary Care Provider Source Comments [facility],non-owned Affiliates and Associated Physician Practices is amultiple site organization consisting of ambulatory clinics and hospital sitesin [place], [place], [place] and [place]. This disclosure is being madepursuant to the Care Everywhere program and may not contain all information available regarding this patient. Last updated 18.[facility] [place] Social History Tobacco Use Types Packs/Day Years [...] VACCINE ( - 2023-2 5 season) 2024 DEPRESSION SCREENING 09/15/2024 Respiratory Syncytial Virus (RSV) Vaccine Pt: or over 60 yrs (1 - 1-dose 75+ series) 2025 INFLUENZA VACCINE (Season Ended) 2025 HEPATITIS B VACCINE Aged Out No [...] on patient's age to complete this topic Insurance [employer] Care Teams Dressmaker Helper Relationship Specialty Start Date End Date Oli Ventura MD [address] [facility] [address] [place] [address] PCP - General 05/12/19
--- OUTSIDE RECORDS SUMMARY | 2025-02-15 12:40 | XMS_ITS | Encounter Summary ---
Author Organization [facility] Address [address] [facility] [place] [address] Care Team Providers Care Supervisor Molding Name Role Phone Oli Ventura MD Primary Care Provider Encounter Details Date Type Department Care Team (Late st Contact Info) Description 12/07/2021 Lab Requisition [facility] DermPath Lab [address] [facility] [address] Jacques Ren MD [address] [place] [address] Social History Tobacco Use Types [...] AM CDT) Case Report Dermatopathology Report Case: [id number] Authorizing Provider: Jacques Ren MD Collected: 12/06/2021 12:00 AM Ordering Location: [facility] DermPath Lab Received: 12/07/2021 02:59 PM Pathologist: Marichuy Mello MD Specimen: Skin, left forearm 11:32 AM CDT DERMATOPATHOLOGY LABORATORY Final Diagnosis Specimen A. SKIN, left forearm: DERMATOFIBROMA (D23.9) 11:32 AM CDT DERMATOPATHOLOGY LABORATORY at 1132 CDT Clinical History DF vs. MM vs. Other. Path# [id number] 11:32 AM CDT DERMATOPATHOLOGY LABORATORY Gross Description Specimen A: Received is one formalin filled container labeled with the patient's name and designated left forearm. The specimen consists of a shave biopsy measuring [id number]. Jar 0. 2 11:32 AM CDT DERMATOPATHOLOGY LABORATORY Microscopic Description [...] characteristic determined by the Dermatopathology Laboratory at [facility], directed by Dr. Paxton Mcmanus. These tests need not be, and therefore are not, approved by the [place] Food and Drug Administration. The tests are used for clinical purposes. Billing Codes Specimen Charges Stain Charges 32064 1 2 11:32 AM CDT DERMATOPATHOLOGY LABORATORY Embedded Images 11:32 AM CDT DERMATOPATHOLOGY LABORATORY Pathology/Cytolog y TISSUE SPECIMEN FROM SKIN / Unknown 12/06/2021 12/07/2021 2:59 PM CDT us Jacques Ren MD LAB - PATHOLOGY/CYTOLOGY ORDER WAQAR Final Result DERMATOPATHOLOGY LABORATORY [facility] - Department of Dermatology [facility] Medicine [address] [place] [address], [address] [phone] documented in this encounter Visit Diagnoses Not on filedocumented in this encounter Care Teams Supervisor Molding Relationship Specialty Start Date End Date Oli Ventura MD [address] [place] [address] [address] [place] [phone] PCP - General 05/12/19 documented as of this encounter
--- OUTSIDE RECORDS SUMMARY | 2025-02-15 12:40 | XMS_ITS ---
Author Name GELY MASSEY M.D. Address [address] [place] [address] Phone [phone] Organization [facility] ([facility]) Care Team Providers Care Supervisor Marble Name Role Phone BRYSON GELY Unavailable [phone] Reji Gentile Unavailable Unavailable EKTA GUIDO Unavailable [phone] GELY DOZIER Unavailable [phone] Reason for Referral Not Available Allergies, adverse [...] No Data Available Vitamin D3 1.25 mg (32540 UT) Cap 1 capsule 4 times weekly 2024-07-08 No Data Availab le Stool Softener 100 mg Cap 1 capsule oral ly daily as needed 2024-07-08 No Data Available Vitamin B-12 100 MCG Tab No Data Available 2024-07-08 No Data Available Problem List Problem Status Onset Date Resolved Date Synopsis Mixed hyperlipidemia due to type 2 diabetes mellitus Active 2024-07-08 N/A N/A Primary hypertension Active 2024-07-08 N/A N/A Morbid (severe) obesity due to excess calories Active 2024-07-08 N/A N/A Atherosclerotic heart diseas e of [place] coronary artery without angina pectoris Active 2024-07-08 N/A N/A Type 2 diabetes mellitus wit hout complications Active 2024-07-08 N/A N/A Mild intermittent asthma, uncomplicated Active 2024-06 N/A N/A CKD (chronic kidney disease) stage 2, GFR 60-89 ml/min Active 2024-07-08 N/A N/A SARA (obstructive sleep apnea) Active 2024-07-08 N/A N/A Encounters Encounters Type Facility Date of Service Diagnosis/Co mplaint Home visit for evaluation and management of new patient requiring medically appropriate examination and moderate level of medical decision making. If using time, at least 60 minutes total time on [facility] [place] 07/08/2024 Chronic kidney disease, stag e 2 (mild)Type 2 diabetes mellitus with other specified complicationMixed hyperlipidemiaHypertensive chronic kidney disease w stg 1-4/unsp chr kdnyMorbid (severe) obesity due to excess caloriesAthscl heart disease of [place] coronary artery w/o ang pctrsMild intermittent asthma, uncomplicatedObstructive sleep apnea (adult) (pediatric)Body mass index (BMI) 40.0-44.9, adult Home visit for evaluation and management of new patient requiring medically appropriate examination and moderate level of medical decision making. If using time, at least 60 minutes total time on [facility] [place] 07/08/2024 Essential (primary) hyperten jhonny Home visit for evaluation and management of new patient requiring medically appropriate examination and moderate level of medical decision making. If using time, at least 60 minutes total time on [facility] [place] 07/08/2024 Essential (primary) hyperten jhonny [...] tive Time Current Smoking Status Former smoker 3 Sex Female History of Procedures Procedures Service Procedure code Service date Servicing provider Phone# Home visit for evaluation and management of new patient requiring medically appropriate examination and moderate level of medical decision making. If using time, at least 60 minutes total time on [facility] [id number] 2024-07-08 No Data Available No Data Availa [...] due to excess caloriesAtherosclerotic heart disease of [place] coronary artery without angina pectorisType 2 diabetes [...]
--- OUTSIDE RECORDS SUMMARY | 2025-02-15 12:40 | XMS_ITS | Referral Summary ---
Author Organization [facility] [address] Address [address] [place] [address] Care Team Providers Care Lurer Name Role Phone Oli Ventura MD Primary [...] on file Legal Sex Female 3:47 AM GUIDE Gender Identity Not on file Sexual Orientation Not on file Last Filed Vital Signs Vital Sign Reading Time Taken Comments Blood Pressure 120/80 09/04/2021 3:30 PM GUIDE Pulse 54 09/04/2021 3:30 PM GUIDE Temperature - - Respiratory Rate - - Oxygen Saturation 97% 09/04/2021 3:30 PM GUIDE Inhaled Oxygen Concentration - - Weight 103.9 kg (229 lb) 01/24/2016 2:41 PM CDT Height 160 cm (5' 3) 01/24/2016 2:41 PM CDT Body Mass Index 40.57 01/24/2016 2:41 PM CDT Plan of Treatment Not on file Insurance Care Teams Lurer Relationship Specialty Start Date End Date Oli Ventura MD [address] [facility] [address] PCP - General Emergency Medicine 09/04/21
--- NOTE | 2025-02-15 12:56 | ECHO_ITS ---
Patient Info Name: Ninfa Turner Age: 74 years : 1950 Gender: Female Ht: 63 in Wt: 250 lbs BSA: 2.31 m2 HR: 79 bpm BP: 141 / 69 mmHg Technical Quality: Fair Exam Date: 02/15/2025 1:02 PM Patient Status: O Admit Date: 02/15/2025 Exam Type: CA echo doppler color flow Complete two-dimensional, color flow and Doppler transthoracic echocardiogram is performed. Tenderizer Tender: Jennifer Oglesby Attending Provider: Abdullahi Fiore DO Summary 1. Complete two-dimensional, color flow and Doppler transthoracic echocardiogram is performed. 2. Left ventricular chamber dimension is normal. 3. Left ventricular systolic function is normal, estimated at 60-65. 4. The left ventricular diastolic function is abnormal. 5. E/e' 13 is mildly elevated. 6. Left atrial chamber dimension is mildly enlarged. 7. There is moderate aortic valve sclerosis. 8. There is moderate aortic valve stenosis with a peak velocity of 366 cm/s, mean gradient of 33 mmHg, and aortic valve area of 1.1 cm2. 9. There is mild aortic valve regurgitation. 10. No pulmonary hypertension, estimated pulmonary arterial systolic pressure is 42 mmHg. Left Ventricle E/e' 13 is mildly elevated. Left ventricular chamber dimension is normal. Left ventricular systolic function is normal, estimated at 60-65. The left ventricular diastolic function is abnormal. Right Ventricle Right ventricular chamber dimension is normal. Right ventricular systolic function is normal and with normal TAPSE 3.2 cm. Left Atria Left atrial chamber dimension is mildly enlarged. Right Atria Right atrial chamber dimension is normal. Aortic Valve The aortic valve is trileaflet. There is moderate aortic valve sclerosis. There is moderate aortic valve stenosis with a peak velocity of 366 cm/s, mean gradient of 33 mmHg, and aortic valve area of 1.1 cm2. There is mild aortic valve regurgitation. Pulmonic Valve There is no pulmonic regurgitation. Mitral Valve There is no mitral valve stenosis. There is no mitral valve regurgitation. Tricuspid Valve There is no tricuspid valve regurgitation. No pulmonary hypertension, estimated pulmonary arterial systolic pressure is 42 mmHg. Pericardium/Pleural There is no pericardial effusion. Inferior Vena Cava Normal inferior vena cava with >50% collapse upon inspiration consistent with normal right atrial pressure, 5 mmHg. Aorta The aortic root size at the sinus of Valsalva is normal. Left Ventricular Outflow Tract Name Value Normal LVOT 2D LVOT Diameter 2.0 cm LVOT Doppler LVOT Peak Velocity 109 cm/s LVOT Peak Gradient 5 mmHg LVOT Mean Gradient 3 mmHg LVOT VTI 30 cm LVOT VTI/AV VTI Ratio 0.3 LVOT Stroke Volume 99 ml LVOT CO 17.9 l/min LVOT CI 7.7 l/min/m2 Pulmonic Valve Name Value Normal PV Doppler PV Peak Velocity 106 cm/s PV Peak Gradient 5 mmHg Mitral Valve Name Value Normal MV Diastolic Function MV E Peak Velocity 122 cm/s MV A Peak Velocity 90 cm/s MV E/A 1.3 MV Decel Time (PW) 199 ms MV Annular TDI MV E/e' (Septal) 13.5 MV E/e' (Lateral) 14.1 MV E/e' (Average) 13.8 Tricuspid Valve Name Value Normal TV Regurgitation Doppler TR Peak Velocity 303 cm/s TR Peak Gradient 35 mmHg Estimated PAP/RSVP RA Pressure 5 mmHg <=5 PA Systolic Pressure 42 mmHg <36 RV Systolic Pressure 42 mmHg <36 TV Annular TDI TV Lateral Jackelyn s' Velocity 12.5 cm/s >=9.5 Aorta Name Value Normal Ascending Aorta Ao Root Diameter (MM) 2.9 cm Ao Root Diam Index (MM) 1.3 cm/m2 Aortic Valve Name Value Normal AV Doppler AV Peak Velocity 366 cm/s AV Peak Gradient 54 mmHg AV Mean Gradient 33 mmHg AV VTI 88 cm AV Area (Cont Eq VTI) 1.1 cm2 >=3.0 AV Area (Cont Eq Amaury) 1.0 cm2 AV DI (Amaury) 0.30 AV Regurgitation 2D LVOT Area 3.3 cm2 Ventricles Name Value Normal LV Dimensions 2D/MM IVS Diastolic Thickness (2D) 1.1 cm 0.6-1.0 LVID Diastole (2D) 4.2 cm 3.8-5.2 LVIW Diastolic Thickness (2D) 0.9 cm 0.6-0.9 LVID Systole (2D) 2.9 cm 2.2-3.5 LVOT Diameter 2.0 cm LV Mass (2D Cubed) 140.17 g 67.00-162.00 LV Mass Index (2D Cubed) 61 g/m2 43-95 Relative Wall Thickness (2D) 0.43 <=0.42 LV Fractional Shortening/Ejection Fraction 2D/MM LV Fractional Shortening (2D) 30 % 27-45 LV EF (2D Teichholz) 58 % LV Diastolic Volume (4C MOD) 119 ml LV EF (4C MOD) 66 % LV Diastolic Volume (2C MOD) 104 ml LV EF (2C MOD) 77 % LV Diastolic Volume (BP MOD) 111 ml 46-106 LV Diastolic Volume Index (BP MOD) 48 ml/m2 29-61 LV Systolic Volume (BP MOD) 31 ml 14-42 LV Systolic Volume Index (BP MOD) 13 ml/m2 8-24 LV EF (BP MOD) 72 % 54-74 LV Diastolic Length (4C) 7.9 cm LV Systolic Length (4C) 6.4 cm LV Stroke Volume (4C MOD) 79 ml RV Dimensions 2D/MM RVID Diastole (2D) 3.8 cm 2.1-3.5 Atria Name Value Normal LA Dimensions LA Dimension (MM) 0.0 cm 2.7-3.8 LA Volume (4C A-L) 72 ml LA Volume (BP A-L) 67 ml RA Dimensions RA Systolic Major [place] Length (4C) 5.1 cm 2.2-2.8 RA Area (4C) 16.4 cm2 <=18.0 Report Signatures
== END 2025-02-15 12:34 | disposition home or self-care (01) ==
PROVIDERS: PCP Emergency Medicine; Visit Provider Internal Medicine Cardiovascular Disease
DX: R93.1 Abnormal findings on diagnostic imaging of heart and coronary circulation (principal); I35.0 Nonrheumatic aortic (valve) stenosis
CPT/HCPCS: 93306

== ENCOUNTER 2025-05-13 09:42 | Outpatient (CLI) | payer OTHER, SELFPAY ==
--- NOTE | ~2025-05-13 | DEXA_ITS ---
Bone Density Report Name: ALBERTO PIMENTEL Age: 75 Sex: Female Ethnicity: White Date of : 1950 Indication: postmenopausal; screening for osteoporosis; Referring Provider: GELY DOZIER Study: Bone densitometry was performed. Exam Date: May 13, 2025 Accession number: [id number] Bone Density: Region BMD T-score Z-score Classification AP Spine(L3, L4) 1.272 1.6 4.1 Normal Femoral Neck (Left) 0.859 0.1 2.2 Normal Total Hip (Left) 1.101 1.3 3.1 Normal Femoral Neck (Right) 0.891 0.4 2.5 Normal Total Hip (Right) 1.083 1.2 2.9 Normal Total Hip Mean 1.092 1.3 3.0 Normal World Health Organization criteria for BMD impression classify patients as: Normal (T-score at or above -1.0), Osteopenia (T-score between -1.0 and -2.5), or Osteoporosis (T-score at or below -2.5). 10-year Fracture Risk: FRAX not reported because: All T-scores for Spine Total, Hip Total, Femoral Neck at or above -1.0 Clinical Information Provided by Patient: Has used the following medications: Vitamin D Patient maximum height was 63 Menopause Age: 58 No regular weight bearing exercise Does not regularly consume dairy products Drinks caffeinated beverages Onset of menses at age 11 Number of children 4 Missed period for more than 6 months in a row Impression: The patient has normal bone mass. Discussion: LOW RISK OF FRACTURE; BONE DENSITY IS WELL ABOVE THE MINIMUM DESIRABLE LEVEL AND ABOVE AVERAGE FOR AGE AND SEX AT ALL SKELETAL SITES TESTED. This person's bone density is above expected limits for age and sex. This is rarely clinically significant, but should be pursued if there are significant musculoskeletal complaints. The patient should follow a healthful lifestyle (good nutrition with adequate calcium and vitamin D, and appropriate weight-bearing exercise). Follow-Up: Consider repeating this study in 5 years or sooner if there is some new clinical indication. Reported by: LILIA on 05/13/2025 10:13:00 AM. Reviewed, dictated and finalized at location A.
== END 2025-05-13 09:43 | disposition home or self-care (01) ==
LOC: MICIMG 09:43
PROVIDERS: PCP Emergency Medicine; Visit Provider Emergency Medicine
DX: E55.9 Vitamin D deficiency, unspecified (principal); Z78.0 Asymptomatic menopausal state
CPT/HCPCS: 77080

== ENCOUNTER 2025-07-13 11:33 | Emergency (ER) | payer OTHER, SELFPAY ==
--- NOTE | ~2025-07-13 | XR_ITS ---
Lumbar spine series Indication: Low back pain, sciatica Comparison: CT pelvis 10/30/2024 Technique: 3 views lumbar spine Findings: 5 nonrib-bearing lumbar-type vertebral bodies. No acute fracture. Height loss T11. No listhesis. Disc spaces maintained. Moderate degenerative changes. SI joints congruent. Sacrum intact. IMPRESSION: 1. No acute findings. Reviewed, dictated and finalized at location R. IMPRESSION: 1. No acute findings.
--- NOTE | ~2025-07-13 | XR_ITS ---
Examination: XR hip LT min 2V Clinical History: left posterior/lat hip pain Comparison: CT pelvis 10/30/2024 Technique: 2 views left hip Findings/impression: 1. No fracture or dislocation left hip. 2. Mild degenerative changes left hip. Reviewed, dictated and finalized at location R.
--- NOTE | ~2025-07-13 | XR_ITS ---
Clinical History: neck pain with radiculopathy in BUE Examination: XR cervical spine 4-5V Comparison: CT cervical spine 10/30/2024 Technique: 3 views cervical spine, including flexion and extension lateral Findings: No acute fracture. No listhesis in neutral position, with straightening of normal lordosis. Minimal anterolisthesis of C2 on 3 with flexion. Prevertebral soft tissues within normal limits. Disc spaces maintained. Minimal degenerative changes. Impression: 1. No acute abnormality. 2. Minimal grade 1 anterolisthesis C2 on 3 with flexion, which reduces in neutral or extension. Reviewed, dictated and finalized at location R. Impression: 1. No acute abnormality. 2. Minimal grade 1 anterolisthesis C2 on 3 with flexion, which reduces in neut ral or extension.
[2025-07-13 11:36] VITALS: BP 141/62; PULSE 69; RESP 16; TEMP 36.6; O2SAT 100
[2025-07-13 11:42] VITALS: BP 152/57; PULSE 68; RESP 18; TEMP 36.4; O2SAT 99
--- NOTE | 2025-07-13 12:15 | ED.EXTPRO ---
HPI - Extremity Problem General Chief complaint: Extremity Problem,Nontraumatic Stated complaint: sciatic pain Time Seen by Provider: 07/13/25 11:38 Source: patient Mode of arrival: ambulatory Limitations: no limitations History of Present Illness HPI Narrative: Ninfa is a 75-year-old female patient presenting to the ER today with complaints of neck pain with radiation of pain down into her arms all as well as low back pain with radiation of pain in her hip and down her left leg. Rates her pain currently a 8/10. She reports she has had this for approximately 6 weeks. Was seen by a chiropractor and has had some adjustments without much relief. 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 She reports that she did fall down 4 weeks ago but was seen ER for that and her x-rays were negative at the time. Related Data Home Medications ?Medication ?Instructions ?Recorded ?Confirmed ?Last Taken ?Type cholecalciferol (vitamin D3) 25 2,000 unit PO DAILY 07/20/19 03/23/25 11/21/22 History mcg (1,000 unit) capsule (Vitamin D3) cyanocobalamin (vitamin B-12) 1,000 mcg PO DAILY 07/20/19 03/23/25 11/21/22 History 1,000 mcg tablet (Vitamin B-12) docusate sodium 100 mg capsule 100 mg PO BID 11/20/22 03/23/25 11/21/22 History magnesium 500 mg tablet 500 mg PO DAILY 11/20/22 03/23/25 11/21/22 History aspirin 81 mg tablet,delayed 81 mg PO DAILY 05/27/24 03/23/25 Unknown History release fluticasone propionate 50 1 spray intranasal BID PRN 03/23/25 Unknown History mcg/actuation nasal spray,suspension (Flonase Allergy Relief) nystatin 100,000 unit/gram topical 1 applic topical TID PRN 03/23/25 Unknown History cream Allergies Allergy/AdvReac Type Severity Reaction Status Date / Time oxycodone AdvReac Intermediate Nausea and Verified 07/13/25 12:29 Vomiting codeine AdvReac Unknown Nausea and Verified 07/13/25 12:29 Vomiting metformin AdvReac Unknown Nausea Verified 07/13/25 12:29 Review of Systems Review of Systems: Pertinent positives per HPI. Patient denies any fever, chills, rash, headache, visual changes, dizziness, cough, runny nose, sore throat, shortness of breath, chest pain, palpitations, nausea, vomiting, diarrhea, constipation, abdominal pain, or any urinary issues. [facility] Past Medical History Medical History Other screening mammogram UTI (urinary tract infection) Pain in left hip Type 2 diabetes mellitus Traumatic arthritis of ankle Lumbar spondylosis Chronic back pain Intractable headache Injury of right knee Fatigue Constipation Chronic stasis dermatitis Yeast infection of the skin Urine frequency URI with cough and congestion Subacute frontal sinusitis Senile calcific aortic valve sclerosis Screening for osteoporosis Right bundle branch block (RBBB) Pulmonary fibrosis Primary osteoarthritis of right knee Primary osteoarthritis of left knee Primary osteoarthritis of left ankle Primary osteoarthritis of both hips Primary osteoarthritis involving multiple joints Peripheral polyneuropathy Periorbital cellulitis of right eye Patient had no falls in past year Pain of both hip joints Pain in left foot Other chronic pain Other abnormal findings in urine Obstruction of tear duct of both sides Nonrheumatic aortic valve insufficiency Neoplasm of uncertain behavior of skin Metabolic alkalosis Menopausal and female climacteric states Lumbosacral radiculopathy Loose body in knee, right knee LBBB (left bundle branch block) Hx of fall HTN (hypertension), benign Heel pain, bilateral Former tobacco use Epigastric pain Dysuria Diverticulosis of large intestine without hemorrhage Disorder of arteries and arterioles, unspecified Diastolic dysfunction Dependent edema Contusion of right knee, initial encounter Chronic pain of left ankle Chronic cough Cardiac murmur, unspecified Bronchitis Bilateral carotid bruits Back pain at L4-L5 level B12 deficiency Aortic stenosis Acute UTI Acute pain of right knee Acute cystitis without hematuria Actinic keratosis Abnormal uterine bleeding Abnormal EKG Other hyperlipidemia Pneumonia due to 2019-nCoV Shoulder pain, left HTN (hypertension) Morbid obesity Arthritis Asthma Diabetes Laughlin's palsy Surgical History Surgical History History of gastric bypass Family History Family History Mother Family history of heart disease in male family member before age 55 Family history of cardiovascular disease, Onset Age: 75 Family history of kidney disease Family history of arthritis Family history of diabetes mellitus in first degree relative Family history of renal failure, Onset Age: 75 Hypertension Diabetes mellitus Father Family history of malignant neoplasm, Onset Age: 62 Family history of arthritis Family history of lung cancer Grandparent Diabetes mellitus Other Family history of malignant neoplasm of brain Social History Social History Smoking packs per day: 1 Smoking cigarettes per day: 20.0 Years smoked: 6 Smoking pack-years: 6.00 Smoking status: Former smoker Tobacco type: cigarettes Smoking end date: 09/15/22 Alcohol intake: never Substance use: never Substance use type: does not use Do You Feel Safe in your Home?: Yes Lack of Transportation: No Lack of Food: Never True Current Housing: I Have Housing Concerned About Future Housing: No Difficulty Paying Gas/Electric Bills: No Difficulty Paying for Meds: No Currently Unemployed: No Education: High School Diploma/GED Difficulty w/ Childcare or Family Care: No Living arrangements: with family Spiritual care concerns: No Comments At the time of my signature, I reviewed and agree with the nursing past medical, surgical, social, and family history. There is no relevant family history pertinent to the patient complaint. Exam Narrative: General: Well-developed, morbidly obese, in no apparent distress Head: Normocephalic, atraumatic. Cardio: Regular rate and rhythm, s1 and s2 normal, no murmur appreciated. Resp: Clear to auscultation bilaterally, no rhonchi, rales, wheezing or rubs. Musculoskeletal: No deformity, tender to palpation over the lower cervical spine and over the trapezius musculature, tenderness to palpation over the mid lumbar spine and over the left posterior and lateral hip, grossly normal range of motion, muscle strength strong and equal in BLE. SLT positive at approximately 45?, patellar reflexes 2/4 bilaterally, negative foot drop, normal gait and station Course Course Emergency Course: Portions of this record may have been created with voice recognition software. Vital Signs Vital signs: Vital Signs Temperature 36.6 C 07/13/25 11:36 Pulse Rate 69 07/13/25 11:36 Respiratory Rate 16 07/13/25 11:36 Blood Pressure 141/62 H 07/13/25 11:36 Pulse Oximetry 100 07/13/25 11:36 Oxygen Delivery Room Air 07/13/25 11:36 Temperature 36.4 C 07/13/25 11:42 Pulse Rate 60 07/13/25 14:42 Respiratory Rate 16 07/13/25 14:42 Blood Pressure 149/60 H 07/13/25 14:42 Pulse Oximetry 98 07/13/25 14:42 Oxygen Delivery Room Air 07/13/25 11:42 Vital signs reviewed MDM - Extremity (Nontraumatic) MDM Narrative Medical decision making narrative: At the time of visit patient is resting comfortably on the exam table. Patient appears to be nontoxic. Complaints of neck pain with radiation of pain down into her arms all as well as low back pain with radiation of pain in her hip and down her left leg. Rates her pain currently a 8/10. She reports she has had this for approximately 6 weeks. Was seen by a chiropractor and has had some adjustments without much relief. 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 She reports that she did fall down 4 weeks ago but was seen ER for that and her x-rays were negative at the time. Diagnostics: X-ray of the cervical spine shows no acute abnormality but does have a minimal grade 1 anterior lithosesis C2 on C3 with flexion. Which reduces with neutral or extension position. Lumbar spine shows no acute findings. Left hip x-ray shows moderate degenerative changes without sign of fracture or dislocation. Plan: I suspect patient has cervical neck pain with radiculopathy as well as low back pain with left-sided sciatica. Toradol 30 mg IM given in the ER and this improved patient's pain to a 5/10. Prescription for Medrol Dosepak and Robaxin was sent to the pharmacy. Patient may also try lidocaine patches to see if this helps alleviate her pain. Follow-up with her PCP in 5-7 days if symptoms persist or sooner if they worsen. Supportive measures were discussed with the patient and they voiced understanding discharge instructions and agrees to treatment plan. Return precautions reviewed Differential Diagnosis Differential diagnosis: Likely other (Acute low back pain, sciatica, osteoarthritis, cervical radiculopathy, nerve inflammation, neuropathy) Imaging Data Radiologist's impression: ITS Impressions Lumbar Spine X-Ray 07/13/25 13:25 IMPRESSION: 1. No acute findings. Cervical Spine X-Ray 07/13/25 13:34 Impression: 1. No acute abnormality. 2. Minimal grade 1 anterolisthesis C2 on 3 with flexion, which reduces in neutral or extension. Discharge Plan Discharge Clinical Impression: Cervical radicular pain Acute low back pain with sciatica Qualifiers: Back pain laterality: left Sciatica laterality: sciatica of left side Qualified Code(s): M54.42 - Lumbago with sciatica, left side Patient Disposition: Home Condition: Stable Instructions: Antibiotic Form, Sciatica (ED), Acute Low Back Pain (ED), Cervical Radiculopathy (ED), Acute Neck Pain (ED) Additional Instructions: X-rays of the cervical spine, left hip, and lumbar spine show degenerative disease Take any prescription medication only as prescribed-Robaxin and Medrol Dosepak Be mindful of sedation precautions given to you if taking a muscle relaxer. May use heat or ice to the affected area Consider massage or chiropractor adjustment if this was discussed with provider May use blue emu, lidocaine patches, or asper cream to affected area- do not apply heat or ice directly over cream- can cause burn. Complete appropriate back and neck stretching exercises. Follow up with your PCP in 3-5 days if symptom persist. Patient Language: Telugu Prescriptions: New methylprednisolone [Medrol (Artis)] 4 mg tablets,dose pack See Rx Instructions PO .COMPLEX Qty: 21 0RF Rx Instructions: orally per package directions methocarbamol 500 mg tablet 500 mg PO BID PRN (Reason: muscle spasm) 7 Days Qty: 14 0RF No Action aspirin 81 mg tablet,delayed release (DR/EC) 81 mg PO DAILY benzonatate 200 mg capsule 200 mg PO TID PRN (Reason: cough) Qty: 90 0RF albuterol sulfate 90 mcg/actuation HFA aerosol inhaler 1 - 2 inh inhalation Q4-6H PRN (Reason: shortness of breath or wheezing) Qty: 8.5 2RF fluticasone propionate [Flonase Allergy Relief] 50 mcg/actuation spray,suspension 1 spray intranasal BID PRN Rx Instructions: administer into each nostril nystatin 100,000 unit/gram cream 1 applic topical TID PRN hydrocortisone [Anti-Itch (HC)] 1 % cream 1 applic topical DAILY PRN (Reason: itching) 7 Days Qty: 28.35 0RF alprazolam [Xanax] 0.5 mg tablet 0.5 mg PO BID PRN (Reason: anxiety) Qty: 30 0RF magnesium 500 mg Tablet 500 mg PO DAILY docusate sodium 100 mg Capsule 100 mg PO BID cyanocobalamin (vitamin B-12) [Vitamin B-12] 1,000 mcg Tablet 1,000 mcg PO DAILY cholecalciferol (vitamin D3) [Vitamin D3] 1,000 unit Capsule 2,000 unit PO DAILY acetaminophen 500 mg tablet 1,000 mg PO TID PRN (Reason: joseph) 7 Days Qty: 42 0RF glimepiride 2 mg tablet See Rx Instructions .ROUTE .COMPLEX Qty: 90 2RF Dose Instruction: TAKE 1 TABLET BY MOUTH EVERY DAY Rx Instructions: TAKE 1 TABLET BY MOUTH EVERY DAY furosemide 40 mg tablet See Rx Instructions .ROUTE .COMPLEX Qty: 90 2RF Dose Instruction: TAKE 1 TABLET BY MOUTH EVERY DAY Rx Instructions: TAKE 1 TABLET BY MOUTH EVERY DAY atorvastatin 20 mg tablet See Rx Instructions .ROUTE .COMPLEX Qty: 90 2RF Dose Instruction: TAKE 1 TABLET BY MOUTH EVERY DAY Rx Instructions: TAKE 1 TABLET BY MOUTH EVERY DAY lisinopril 40 mg tablet See Rx Instructions .ROUTE .COMPLEX Qty: 90 2RF Dose Instruction: TAKE 1 TABLET BY MOUTH EVERY DAY Rx Instructions: TAKE 1 TABLET BY MOUTH EVERY DAY triamcinolone acetonide 0.1 % ointment 1 applic topical TID Qty: 453.6 0RF pioglitazone 30 mg tablet See Rx Instructions .ROUTE .COMPLEX Qty: 90 2RF Dose Instruction: TAKE 1 TABLET BY MOUTH EVERY DAY Rx Instructions: TAKE 1 TABLET BY MOUTH EVERY DAY Follow-up/Referrals: Oli Ventura MD [Primary Care Provider, Internal Medicine] Time of Disposition: 14:16 Quality NIHSS Nursing Documentation ED NIHSS nursing documentation: reviewed/agree
[2025-07-13] MEDS: KETOROLAC 30 MG/ML VIAL (*BKC) IM (12:39)
--- OUTSIDE RECORDS SUMMARY | 2025-07-13 13:09 | XMS_ITS | Clinical Summary ---
Author Organization [facility] [address] Address [address] [place] [address] Care Team Providers Care Investment Trader Name Role Phone Oli Ventura MD Primary [...] History Date Comments Type 2 diabetes mellitus Diabete s type 2 Heart valve disease Valvular dis [...] on file Legal Sex Female 3:47 AM EXTENDER Gender Identity Not on file Sexual Orientation Not on file Obstetrics History Last Filed Vital Signs Vital Sign Reading Time Taken Comments Blood Pressure 120/80 09/04/2021 3:30 PM EXTENDER Pulse 54 09/04/2021 3:30 PM EXTENDER Temperature - - Respiratory Rate - - Oxygen Saturation 97% 09/04/2021 3:30 PM EXTENDER Inhaled Oxygen Concentration - - Weight 103.9 kg (229 lb) 01/24/2016 2:41 PM CDT Height 160 cm (5' 3) 01/24/2016 2:41 PM CDT Body Mass Index 40.57 01/24/2016 2:41 PM CDT Plan of Treatment Not on file Insurance Care Teams Investment Trader Relationship Specialty Start Date End Date Oli Ventura MD [address] [place] [address] PCP - General Emergency Medicine 09/04/21
--- OUTSIDE RECORDS SUMMARY | 2025-07-13 13:09 | XMS_ITS | Clinical Summary ---
Author Organization [facility] Address [address] [facility] [place] [address] Care Team Providers Care Component Assembler Name Role Phone Oli Ventura MD Primary Care Provider [phone] Source Comments [facility],non-owned Affiliates and Associated Physician Practices is amultiple site organization consisting of ambulatory clinics and hospital sitesin [place], [place], [place] and [place]. This disclosure is being madepursuant to the Care Everywhere program and may not contain all information available regarding this patient. Last updated 18.[facility] Social History Tobacco Use Types Packs/Day Years [...] 2000 ZOSTER VACCINE (1 of 2) 2000 DEPRESSION SCREENING 09/15/2024 Respiratory Syncytial Virus (RSV) Vaccine Pt: or over 60 yrs (1 - 1-dose 75+ series) 2025 COVID-19 VACCINE (2023-2 5 season) 2025 INFLUENZA VACCINE (#1) 2025 HEPATITIS B VACCINE Aged Out No [...] this topic Insurance [employer] Care Teams Component Assembler Relationship Specialty Start Date End Date Oli Ventura MD [address] [facility] [address] [place] [address] PCP - General 05/12/19
--- OUTSIDE RECORDS SUMMARY | 2025-07-13 13:09 | XMS_ITS ---
Author Name GELY MASSEY M.D. 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 If using time, at least 60 minutes total time on [facility] [place] 07/08/2024 Essential (primary) hyperten jhonny Home visit for evaluation and management of new patient requiring medically appropriate examination and moderate level of medical decision making. If using time, at least 60 minutes total time on [facility] [place] 07/08/2024 Essential (primary) hyperten jhonny [...] tive Time Current Smoking Status Former smoker 2025-06-16 9 Sex Female History of Procedures Procedures Service Procedure code Service date Servicing provider Phone# Home visit for evaluation and management of new patient requiring medically appropriate examination and moderate level of medical decision making. If using time, at least 60 minutes total time on [facility] [id number] 2024-07-08 No Data Available No Data Availa [...] due to excess caloriesAtherosclerotic heart disease of [place] coronary artery without angina pectorisType 2 diabetes [...]
--- OUTSIDE RECORDS SUMMARY | 2025-07-13 13:09 | XMS_ITS | Encounter Summary ---
Author Organization [facility] Address [address] [facility] [place] [address] Care Team Providers Care Principal Technical Specialist Name Role Phone Oli Ventura MD Primary Care Provider Encounter Details Date Type Department Care Team (Late st Contact Info) Description 12/07/2021 Lab Requisition [facility] DermPath Lab [address] [facility], [facility] [place] [address] Jacques Ren MD [address] [facility] [address] Social History Tobacco Use Types [...] AM CDT) Case Report Dermatopathology Report Case: [id number] Authorizing Provider: Jacques Ren MD Collected: 12/06/2021 12:00 AM Ordering Location: [facility] DermPath Lab Received: 12/07/2021 02:59 PM Pathologist: Marichuy Mello MD Specimen: Skin, left forearm 2 11:32 AM CDT DERMATOPATHOLOGY LABORATORY Final Diagnosis Specimen A. SKIN, left forearm: DERMATOFIBROMA (D23.9) 2 11:32 AM CDT DERMATOPATHOLOGY LABORATORY at 1132 CDT Clinical History DF vs. MM vs. Other. Path# [id number] 2 11:32 AM CDT DERMATOPATHOLOGY LABORATORY Gross Description Specimen A: Received is one formalin filled container labeled with the patient's name and designated left forearm. The specimen consists of a shave biopsy measuring [id number]. Jar 0. 2 11:32 AM CDT DERMATOPATHOLOGY [...] characteristic determined by the Dermatopathology Laboratory at [facility], directed by Dr. Paxton Mcmanus. These tests need not be, and therefore are not, approved by the [place] Food and Drug Administration. The tests are used for clinical purposes. Billing Codes Specimen Charges Stain Charges 41339 1 2 11:32 AM CDT DERMATOPATHOLOGY LABORATORY Embedded Images 11:32 AM CDT DERMATOPATHOLOGY LABORATORY Pathology/Cytolog y TISSUE SPECIMEN FROM SKIN / Unknown 12/06/2021 12/07/2021 2:59 PM CDT us Jacques Ren MD LAB - PATHOLOGY/CYTOLOGY ORDER WAQAR Final Result DERMATOPATHOLOGY LABORATORY [facility] - Department of Dermatology [address], [address] [phone] documented in this encounter Visit Diagnoses Not on filedocumented in this encounter Care Teams Principal Technical Specialist Relationship Specialty Start Date [place] [address] [address] PCP - General 05/12/19 documented as of this encounter
--- OUTSIDE RECORDS SUMMARY | 2025-07-13 13:09 | XMS_ITS | Clinical Summary ---
Author Organization [facility] Care Team Providers Care Refrigerated Cargo Clerk Name Role Phone Unavailable Primary Care Provider Unavailabl e Social History Tobacco Use Types Packs/Day Years Used Date Smoking Tobacco: Never Assessed Comments Unknown Sex and Gender Information Value Date Recorded Sex Assigned at Not on file Legal Sex Female 11:45 AM CDT Gender Identity Not on file Sexual Orientation Not on file Plan of Treatment Health Maintenance Due Date Last Done Comments Hepatitis C Virus (HCV) Screening 1950 TdaP Immunization 1950 Cologuard 1995 Colonoscopy 1995 Colorectal Cancer Screening 1995 Immunochemical Fecal Occult Blood 1995 Pneumococcal Immunization (5 0+ years) (1 of 1 - PCV) 2000 Zoster Immunization (1 of 2) 2000 Respiratory Syncytial Virus (RSV) Immunization (Adult) (1 - 1-dose 75+ series) 2025 Influenza Immunization (#1) 2025 SARS-COV-2 Immunization ( - season) 2025 Hepatitis B Immunization Aged Out No longer eligible based on patient's age to complete this topic Human Papillomavirus (HPV) Immunization Aged Out No longer eligible b ased on patient's age to complete this topic Meningococcal Immunization (ACWY) Aged Out No longer eligible based on patient's age to complete this topic Rotavirus Immunization Aged Out No lo nger eligible based on patient's age to complete this topic
--- OUTSIDE RECORDS SUMMARY | 2025-07-13 13:09 | XMS_ITS | Encounter Summary ---
Author Organization [facility] Address [address] [place] [address] Care Team Providers Care Building Superintendent Name Role Phone Oli Ventura MD Primary Care Provider Encounter Details Date Type Department Care Team (Late st Contact Info) Description 12/08/2020 Lab Requisition [facility] DermPath Lab [address] [facility], [facility] [place] [address] Jacques Ren MD [address] [facility] [address] [place] [address] Social History Tobacco Use Types [...] AM CDT) Case Report Dermatopathology Report Case: [id number] Authorizing Provider: Jacques Ren MD Collected: 12/06/2020 03:33 AM Ordering Location: [facility] DermPath Lab Received: 12/08/2020 06:11 AM Pathologist: Bridgette Mcmanus MD Specimen: Skin, left FH 2:21 PM CDT DERMATOPATHOLOGY LABORATORY Final Diagnosis Specimen A. SKIN, left FH: PIGMENTED SEBORRHEIC KERATOSIS, INFLAMED (L82.1) 1 2:21 PM CDT DERMATOPATHOLOGY LABORATORY at 1421 CDT Clinical History SK vs MM. Path# [id number]. 1 2:21 PM CDT DERMATOPATHOLOGY LABORATORY Gross Description Specimen A: Received is one formalin filled container labeled with the patient's name and designated left FH. The specimen consists of a shave biopsy measuring [id number]. Jar 0. 1 2:21 PM CDT DERMATOPATHOLOGY [...] characteristic determined by the Dermatopathology Laboratory at [facility], directed by Dr. Paxton Mcmanus. These tests need not be, and therefore are not, approved by the [place] Food and Drug Administration. The tests are used for clinical purposes. Billing Codes Specimen Charges Stain Charges [id number] 1 1 2:21 PM CDT DERMATOPATHOLOGY LABORATORY Embedded Images 2:21 PM CDT DERMATOPATHOLOGY LABORATORY Pathology/Cytolo gy TISSUE SPECIMEN FROM SKIN / Unknown 12/06/2020 3:33 AM CDT 12/08/2020 6:11 AM CDT us Jacques Ren MD LAB - PATHOLOGY/CYTOLOGY ORDER WAQAR Final Result DERMATOPATHOLOGY LABORATORY [facility] - Department of Dermatology [facility] Medicine [address] [place] [address], [address] [place] [address], [facility] [phone] documented in this encounter Visit Diagnoses Not on filedocumented in this encounter Care Teams Building Superintendent Relationship Specialty Start Date End Date Oli Ventura MD [address] [address] PCP - General 05/12/19 documented as of this encounter
--- OUTSIDE RECORDS SUMMARY | 2025-07-13 13:37 | XMS_ITS | Encounter Summary ---
Author Organization [facility] Address [address] [place] [address] Care Team Providers Care Motor Tester Name Role Phone Oli Ventura MD Primary Care Provider Encounter Details Date Type Department Care Team (Late st Contact Info) Description 12/08/2020 Lab Requisition [facility] DermPath Lab [address] [facility], [facility] [place] [address] Jacques Ren MD [address] [place] [address] Social History Tobacco Use Types [...] AM CDT) Case Report Dermatopathology Report Case: [id number] Authorizing Provider: Jacques Ren MD Collected: 12/06/2020 03:33 AM Ordering Location: [facility] DermPath Lab Received: 12/08/2020 06:11 AM Pathologist: Bridgette Mcmanus MD Specimen: Skin, left FH 2:21 PM CDT DERMATOPATHOLOGY LABORATORY Final Diagnosis Specimen A. SKIN, left FH: PIGMENTED SEBORRHEIC KERATOSIS, INFLAMED (L82.1) 1 2:21 PM CDT DERMATOPATHOLOGY LABORATORY at 1421 CDT Clinical History SK vs MM. Path# [id number]. 1 2:21 PM CDT DERMATOPATHOLOGY LABORATORY Gross Description Specimen A: Received is one formalin filled container labeled with the patient's name and designated left FH. The specimen consists of a shave biopsy measuring [id number]. Jar 0. 1 2:21 PM CDT DERMATOPATHOLOGY [...] characteristic determined by the Dermatopathology Laboratory at [facility], directed by Dr. Paxton Mcmanus. These tests need not be, and therefore are not, approved by the [place] Food and Drug Administration. The tests are used for clinical purposes. Billing Codes Specimen Charges Stain Charges 44080 1 1 2:21 PM CDT DERMATOPATHOLOGY LABORATORY Embedded Images 2:21 PM CDT DERMATOPATHOLOGY LABORATORY Pathology/Cytolo gy TISSUE SPECIMEN FROM SKIN / Unknown 12/06/2020 3:33 AM CDT 12/08/2020 6:11 AM CDT us Jacques Ren MD LAB - PATHOLOGY/CYTOLOGY ORDER WAQAR Final Result DERMATOPATHOLOGY LABORATORY [facility] - Department of Dermatology [facility] Medicine [address] [place] [address], [address] [place] [address], [facility] [phone] documented in this encounter Visit Diagnoses Not on filedocumented in this encounter Care Teams Motor Tester Relationship Specialty Start Date End Date Oli Ventura MD [address] [address] PCP - General 05/12/19 documented as of this encounter
--- OUTSIDE RECORDS SUMMARY | 2025-07-13 13:37 | XMS_ITS | Encounter Summary ---
Author Organization [facility] Address [address] [facility] [place] [address] Care Team Providers Care Electronic Drafter Name Role Phone Oli Ventura MD Primary Care Provider Encounter Details Date Type Department Care Team (Late st Contact Info) Description 12/07/2021 Lab Requisition [facility] DermPath Lab [address] [facility], [facility] [place] [address] Jacques Ren MD [address] [place] [address] Social History Tobacco Use Types [...] AM CDT) Case Report Dermatopathology Report Case: [id number] Authorizing Provider: Jacques Ren MD Collected: 12/06/2021 12:00 AM Ordering Location: [facility] DermPath Lab Received: 12/07/2021 02:59 PM Pathologist: Marichuy Mello MD Specimen: Skin, left forearm 2 11:32 AM CDT DERMATOPATHOLOGY LABORATORY Final Diagnosis Specimen A. SKIN, left forearm: DERMATOFIBROMA (D23.9) 2 11:32 AM CDT DERMATOPATHOLOGY LABORATORY at 1132 CDT Clinical History DF vs. MM vs. Other. Path# [id number] 2 11:32 AM CDT DERMATOPATHOLOGY LABORATORY Gross Description Specimen A: Received is one formalin filled container labeled with the patient's name and designated left forearm. The specimen consists of a shave biopsy measuring [id number]. Jar 0. 2 11:32 AM CDT DERMATOPATHOLOGY [...] by the Dermatopathology Laboratory at [facility], directed by Dr. Paxton Mcmanus. These tests need not be, and therefore are not, approved by the [place] Food and Drug Administration. The tests are used for clinical purposes. Billing Codes Specimen Charges Stain Charges [id number] 1 2 11:32 AM CDT DERMATOPATHOLOGY LABORATORY Embedded Images 11:32 AM CDT DERMATOPATHOLOGY LABORATORY Pathology/Cytolog y TISSUE SPECIMEN FROM SKIN / Unknown 12/06/2021 12/07/2021 2:59 PM CDT us Jacques Ren MD LAB - PATHOLOGY/CYTOLOGY ORDER WAQAR Final Result DERMATOPATHOLOGY LABORATORY [facility] - Department of Dermatology [address], [address] [phone] documented in this encounter Visit Diagnoses Not on filedocumented in this encounter Care Teams Electronic Drafter Relationship Specialty Start Date End Date Oli Ventura MD [address] [address] PCP - General 05/12/19 documented as of this encounter
--- OUTSIDE RECORDS SUMMARY | 2025-07-13 13:37 | XMS_ITS | Clinical Summary ---
Author Organization [facility] [place] [address] Address [address] [place] [address] Care Team Providers Care Bridge Manager Name Role Phone Oli Ventura MD [...] on file Legal Sex Female 3:47 AM TILER'S ASSISTANT Gender Identity Not on file Sexual Orientation Not on file Obstetrics History Last Filed Vital Signs Vital Sign Reading Time Taken Comments Blood Pressure 120/80 09/04/2021 3:30 PM TILER'S ASSISTANT Pulse 54 09/04/2021 3:30 PM TILER'S ASSISTANT Temperature - - Respiratory Rate - - Oxygen Saturation 97% 09/04/2021 3:30 PM TILER'S ASSISTANT Inhaled Oxygen Concentration - - Weight 103.9 kg (229 lb) 01/24/2016 2:41 PM CDT Height 160 cm (5' 3) 01/24/2016 2:41 PM CDT Body Mass Index 40.57 01/24/2016 2:41 PM CDT Plan of Treatment Not on file Insurance Care Teams Bridge Manager Relationship Specialty Start Date End Date Oli Ventura MD [address] [place] [address] PCP - General Emergency Medicine 09/04/21
--- OUTSIDE RECORDS SUMMARY | 2025-07-13 13:37 | XMS_ITS ---
Author Name GELY MASSEY M.D. 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 If using time, at least 60 minutes total time on [facility] [place] 07/08/2024 Essential (primary) hyperten jhonny Home visit for evaluation and management of new patient requiring medically appropriate examination and moderate level of medical decision making. If using time, at least 60 minutes total time on [facility] [place] 07/08/2024 Essential (primary) hyperten jhonny [...] at least 60 minutes total time on [facility] [id number] 2024-07-08 No Data Available No Data Availa [...] due to excess caloriesAtherosclerotic heart disease of [place] coronary artery without angina pectorisType 2 diabetes [...]
--- OUTSIDE RECORDS SUMMARY | 2025-07-13 13:37 | XMS_ITS | Clinical Summary ---
Author Organization [facility] Address [address] [facility] [place] [address] Care Team Providers Care Furnace Repairer Helper Name Role Phone Oli Ventura MD Primary Care Provider Source Comments [facility],non-owned Affiliates and Associated Physician Practices is amultiple site organization consisting of ambulatory clinics and hospital sitesin [place], [place], [place] and [place]. This disclosure is being madepursuant to the Care Everywhere program and may not contain all information available regarding this patient. Last updated 18.[facility] [employer] Social History Tobacco Use Types Packs/Day Years [...] this topic Insurance [employer] Care Teams Furnace Repairer Helper Relationship Specialty Start Date End Date Oli Ventura MD [address] [facility] [address] [place] [address] PCP - General 05/12/19
--- OUTSIDE RECORDS SUMMARY | 2025-07-13 13:37 | XMS_ITS | Clinical Summary ---
Author Organization [facility] Care Team Providers Care Bacteriologist Soil Name Role Phone Unavailable Primary Care Provider [...]
[2025-07-13 14:42] VITALS: BP 149/60; PULSE 60; RESP 16; O2SAT 98
== END 2025-07-13 14:40 | disposition home or self-care (01) ==
PROVIDERS: Emergency Provider Nurse Practitioner Family; PCP Emergency Medicine
DX: M54.12 Radiculopathy, cervical region (principal); M54.42 Lumbago with sciatica, left side; I87.2 Venous insufficiency (chronic) (peripheral); I35.1 Nonrheumatic aortic (valve) insufficiency; I11.9 Hypertensive heart disease without heart failure; E11.42 Type 2 diabetes mellitus with diabetic polyneuropathy; E53.8 Deficiency of other specified B group vitamins; E78.49 Other hyperlipidemia; J45.909 Unspecified asthma, uncomplicated; M19.179 Post-traumatic osteoarthritis, unspecified ankle and foot; M19.072 Primary osteoarthritis, left ankle and foot; M17.0 Bilateral primary osteoarthritis of knee; Z98.84 Bariatric surgery status; M16.0 Bilateral primary osteoarthritis of hip; Z86.16 Personal history of COVID-19; Z87.01 Personal history of pneumonia (recurrent); Z87.440 Personal history of urinary (tract) infections; Z87.891 Personal history of nicotine dependence; Z79.82 Long term (current) use of aspirin; Z79.84 Long term (current) use of oral hypoglycemic drugs; Z79.899 Other long term (current) drug therapy
CPT/HCPCS: 72050; 72100; 73502; 96372; 99284; J1885

== ENCOUNTER 2025-08-30 12:40 | Outpatient (CLI) | payer OTHER, SELFPAY ==
--- NOTE | ~2025-08-30 | MR_ITS ---
EXAMINATION: MR cervical spine wo/w con DATE: 08/30/2025 13:51 INDICATION: Radiculopathy TECHNIQUE: Magnetic resonance imaging (MRI) of the cervical spine was performed without intravenous contrast. Sequences included sagittal T2-weighted FSE, sagittal T2-weighted FS FSE, sagittal T1-weighted FSE, axial MERGE, and axial T2-weighted FSE. COMPARISON: None FINDINGS: Degenerative changes involving the disc spaces, uncovertebral joints and pedicles throughout the cervical spine. Reduced signal in the expected area of the posterior longitudinal ligament of the C2-3 and C3-4 levels may represent bulky calcification of the posterior longitudinal ligament. No discrete medullary cord lesion or gross myelopathic changes seen. Visualized portions of the posterior fossa unremarkable. Level specific findings as follows: C2-3: Bulky posterior spondylosis/disc osteophyte complex and/or calcification of the posterior longitudinal ligament results in moderately severe spinal canal stenosis and compression of the spinal cord. AP diameter of the canal is approximately 6 mm. No discrete disc protrusion. The neural foramen are patent. C3-4: Similar changes as at C2-3 with the AP diameter of the canal measuring approximately 5.5 mm and the spinal cord moderately compressed. C4-5: Moderately severe posterior spondylosis but no spinal canal stenosis or discrete disc protrusion. Mild to moderate right and mild left-sided neural foraminal narrowing. C5-6: Moderately severe broad-based disc bulging and posterior spondylosis with borderline spinal canal stenosis. The AP diameter of the canal measures approximately 8 mm. No discrete disc protrusion. Mild bilateral neural foraminal narrowing. 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 No gross myelopathic or cord signal changes present. Additional evaluation with cervical spine CT to evaluate ossified matrix at these levels should be considered. Reviewed, dictated and finalized at location A. CAL BILLING CLERK IMPRESSION: Degenerative changes throughout the cervical spine but most advance d at C2-3 and C3-4 where there is bulky posterior spondylosis and/or calcificat ion of the posterior longitudinal ligament resulting in moderately severe spina l canal stenosis and deformity of the spinal cord. No gross myelopathic or cord signal changes present. Additional evaluation with cervical spine CT to evalua te ossified matrix at these levels should be considered.
--- OUTSIDE RECORDS SUMMARY | 2025-08-30 14:34 | XMS_ITS | Clinical Summary ---
Author Organization [facility] [address] Address [address] [place] [address] Care Team Providers Care Grader Green Meat Name Role Phone Oli Ventura MD Primary [...] on file Legal Sex Female 3:47 AM AUTOMATIC TOE LASTER Gender Identity Not on file Sexual Orientation Not on file Last Filed Vital Signs Vital Sign Reading Time Taken Comments Blood Pressure 120/80 09/04/2021 3:30 PM AUTOMATIC TOE LASTER Pulse 54 09/04/2021 3:30 PM AUTOMATIC TOE LASTER Temperature - - Respiratory Rate - - Oxygen Saturation 97% 09/04/2021 3:30 PM AUTOMATIC TOE LASTER Inhaled Oxygen Concentration - - Weight 103.9 kg (229 lb) 01/24/2016 2:41 PM CDT Height 160 cm (5' 3) 01/24/2016 2:41 PM CDT Body Mass Index 40.57 01/24/2016 2:41 PM CDT Plan of Treatment Not on file Insurance Care Teams Grader Green Meat Relationship Specialty Start Date End Date Oli Ventura MD [address] [place] [address] PCP - General Emergency Medicine 09/04/21
--- OUTSIDE RECORDS SUMMARY | 2025-08-30 14:34 | XMS_ITS | Encounter Summary ---
Author Organization [facility] Address [address] [place] [address] Care Team Providers Care Landfill Grader Name Role Phone Oli Ventura MD Primary Care Provider Encounter Details Date Type Department Care Team (Late st Contact Info) Description 12/08/2020 Lab Requisition [facility] [address], [facility] [place] [address] Jacques Ren MD [address] [place] [address] Social History Tobacco Use Types [...] AM CDT) Case Report Dermatopathology Report Case: [id number] Authorizing Provider: Jacques Ren MD Collected: 12/06/2020 03:33 AM Ordering Location: [facility] Received: 12/08/2020 06:11 AM Pathologist: Bridgette Mcmanus MD Specimen: Skin, left FH 2:21 PM CDT DERMATOPATHOLOGY LABORATORY Final Diagnosis Specimen A. SKIN, left FH: PIGMENTED SEBORRHEIC KERATOSIS, INFLAMED (L82.1) 1 2:21 PM CDT DERMATOPATHOLOGY LABORATORY at 1421 CDT Clinical History SK vs MM. Path# [id number] 1 2:21 PM CDT DERMATOPATHOLOGY LABORATORY Gross Description Specimen A: Received is one formalin filled container labeled with the patient's name and designated left FH. The specimen consists of a shave biopsy measuring [id number]. Jar 0. 1 2:21 PM CDT DERMATOPATHOLOGY [...] by the Dermatopathology Laboratory at [facility], directed by Dr. Paxton Mcmanus. These tests need not be, and therefore are not, approved by the [place] Food and Drug Administration. The tests are used for clinical purposes. Billing Codes Specimen Charges Stain Charges 33565 1 1 2:21 PM CDT DERMATOPATHOLOGY LABORATORY Embedded Images 2:21 PM CDT DERMATOPATHOLOGY LABORATORY Pathology/Cytolo gy TISSUE SPECIMEN FROM SKIN / Unknown 12/06/2020 3:33 AM CDT 12/08/2020 6:11 AM CDT us Jacques Ren MD LAB - PATHOLOGY/CYTOLOGY ORDER WAQAR Final Result DERMATOPATHOLOGY LABORATORY [facility] - Department of Dermatology [facility] [address] [place] [address], [address] [place] [address], [place] [phone] documented in this encounter Visit Diagnoses Not on filedocumented in this encounter Care Teams Landfill Grader Relationship Specialty Start Date End Date Oli Ventura MD [address] [address] PCP - General 05/12/19 documented as of this encounter
--- OUTSIDE RECORDS SUMMARY | 2025-08-30 14:34 | XMS_ITS | Encounter Summary ---
Author Organization [facility] Address [address] [facility] [place] [address] Care Team Providers Care Manufacturing Engineer Supervisor Name Role Phone Oli Ventura MD Primary Care Provider Encounter Details Date Type Department Care Team (Late st Contact Info) Description 12/07/2021 Lab Requisition [facility] Derm[facility] Lab [address] [facility] [address] [facility], [place] [address] Jacques Ren MD [address] [facility] [place] [address] Social History Tobacco Use Types [...] AM CDT) Case Report Dermatopathology Report Case: [id number] Authorizing Provider: Jacques Ren MD Collected: 12/06/2021 12:00 AM Ordering Location: [facility] Received: 12/07/2021 02:59 PM Pathologist: Marichuy Mello MD Specimen: Skin, left forearm 2 11:32 AM CDT DERMATOPATHOLOGY LABORATORY Final Diagnosis Specimen A. SKIN, left forearm: DERMATOFIBROMA (D23.9) 2 11:32 AM CDT DERMATOPATHOLOGY LABORATORY at 1132 CDT Clinical History DF vs. MM vs. Other. Path# [id number] 2 11:32 AM CDT DERMATOPATHOLOGY LABORATORY Gross Description Specimen A: Received is one formalin filled container labeled with the patient's name and designated left forearm. The specimen consists of a shave biopsy measuring [id number]. Jar 0. 2 11:32 AM CDT DERMATOPATHOLOGY [...] characteristic determined by the Dermatopathology Laboratory at [facility], directed by Dr. Paxton Mcmanus. These tests need not be, and therefore are not, approved by the [place] Food and Drug Administration. The tests are used for clinical purposes. Billing Codes Specimen Charges Stain Charges 33096 1 2 11:32 AM CDT DERMATOPATHOLOGY LABORATORY Embedded Images 11:32 AM CDT DERMATOPATHOLOGY LABORATORY Pathology/Cytolog y TISSUE SPECIMEN FROM SKIN / Unknown 12/06/2021 12/07/2021 2:59 PM CDT us Jacques Ren MD LAB - PATHOLOGY/CYTOLOGY ORDER WAQAR Final Result DERMATOPATHOLOGY LABORATORY [facility] - Department of Dermatology [address], [address] [phone] documented in this encounter Visit Diagnoses Not on filedocumented in this encounter Care Teams Manufacturing Engineer Supervisor Relationship Specialty Start Date End Date Oli Ventura MD [address] [address] PCP - General 05/12/19 documented as of this encounter
--- OUTSIDE RECORDS SUMMARY | 2025-08-30 14:34 | XMS_ITS | Clinical Summary ---
Author Organization [facility] Care Team Providers Care Die Machine Operator Name Role Phone Unavailable Primary Care [...]
--- OUTSIDE RECORDS SUMMARY | 2025-08-30 14:34 | XMS_ITS | Clinical Summary ---
Author Organization [facility] Address [address] [facility] [place] [address] Care Team Providers Care Developmental Services Worker Name Role Phone Oli Ventura MD Primary Care Provider [phone] Source Comments [facility],non-owned Affiliates and Associated Physician Practices is amultiple site organization consisting of ambulatory clinics and hospital sitesin [place], [place], [place] and [place]. This disclosure is being madepursuant to the Care Everywhere program and may not contain all information available regarding this patient. Last updated 18.[facility] Social History Tobacco Use Types Packs/Day Years [...] - 1-dose 75+ series) 2025 COVID-19 VACCINE (2024-2 6 season) 2025 INFLUENZA VACCINE (#1) 2025 HEPATITIS [...] this topic Insurance [employer] Care Teams Developmental Services Worker Relationship Specialty Start Date End Date Oli Ventura MD [address] [facility] [address] [place] [address] PCP - General 05/12/19
--- OUTSIDE RECORDS SUMMARY | 2025-08-30 14:34 | XMS_ITS ---
Author Name GELY MASSEY M.D. 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 If using time, at least 60 minutes total time on [facility] [place] 07/08/2024 Essential (primary) hyperten jhonny Home visit for evaluation and management of new patient requiring medically appropriate examination and moderate level of medical decision making. If using time, at least 60 minutes total time on [facility] [place] 07/08/2024 Essential (primary) hyperten jhonny [...] tive Time Current Smoking Status Former smoker 2025-08-15 6 Sex Female History of Procedures Procedures Service Procedure code Service date Servicing provider Phone# Home visit for evaluation and management of new patient requiring medically appropriate examination and moderate level of medical decision making. If using time, at least 60 minutes total time on [employer] [id number] 2024-07-08 No Data Available No Data Availa [...] due to excess caloriesAtherosclerotic heart disease of [place] coronary artery without angina pectorisType 2 diabetes [...]
== END 2025-08-30 12:41 | disposition home or self-care (01) ==
PROVIDERS: PCP Emergency Medicine; Visit Provider Emergency Medicine
DX: M54.12 Radiculopathy, cervical region (principal); M47.812 Spondylosis without myelopathy or radiculopathy, cervical region; M48.02 Spinal stenosis, cervical region; G95.89 Other specified diseases of spinal cord
CPT/HCPCS: 72156; A9577